=== PATIENT | male | born 1945 | race Caucasian/White ===

== ENCOUNTER 2017-04-18 10:26 | Inpatient (IN) | payer OTHER, MEDICARE ==
[2017-04-18] VITALS (7 sets, daily range): BP systolic 112–140; BP diastolic 74–94; PULSE 76–83; RESP 16–18; TEMP 97.5–98.3; O2SAT 93–96
[~2017-04-18] VITALS: Ht 175.3 cm; Wt 58.7 kg
[2017-04-18] MEDS ORDERED: ASPI81TA11 PO (10:58)
[2017-04-18] MEDS ORDERED: PHEN100C PO (10:58)
[2017-04-18] MEDS ORDERED: ATEN25TA PO (10:58)
[2017-04-18] MEDS ORDERED: SIMV40TA PO (10:58)
[2017-04-18] MEDS ORDERED: HYDR25TA5 PO (10:58)
[2017-04-18] MEDS ORDERED: ONDANSETRON HCL 4 MG/2 ML VIAL IV PUSH ONE (11:00)
[2017-04-18] MEDS ORDERED: SODIUM CHLOR 0.9% 1000 ML INJ 1,000 ML IV SCH (11:00)
--- NOTE | 2017-04-18 11:01 | PD ---
HPI Chief Complaint: GI Complaint Time Seen by Provider: 10:41 Travel History International Travel<30 days: No Contact w/Intl Traveler<30days: No Traveled to known affect area: No History of Present Illness HPI 72-year-old male complaining of cough, nausea vomiting diarrhea. Patient states that the symptoms started several months ago. Patient states that the cough is intermittent dry cough. Patient states that he has dyspnea on exertion. Patient is an ex-smoker. Patient states that he smoked marijuana occasionally. Patient has history of lupus dermatitis. Patient denies any blood in mucus in the stool. Patient denies any fever chills or back pain. Patient denies any abdominal pain. Patient denies history of COPD. 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) Social History Tobacco Use: No Allergies-Medications (Allergen,Severity, Reaction): Coded Allergies: No Known Allergies (Unverified , 04/18/17) Reported Meds & Prescriptions Reported Meds & Active Scripts Active Reported Aspirin EC (Aspirin) 81 Mg Tabdr 81 Mg PO DAILY Simvastatin 40 Mg Tab 40 Mg PO HS Phenytoin Extended 100 Mg Cap 100 Mg PO TID Hydrochlorothiazide 25 Mg Tab 25 Mg PO DAILY Atenolol 25 Mg Tab 25 Mg PO DAILY Review of Systems General / Constitutional: No: Fever Eyes: No: Visual changes HENT: No: Headaches Cardiovascular: No: Chest Pain or Discomfort Respiratory: Positive: Cough, No: Shortness of Breath Gastrointestinal: Positive: Nausea, Vomiting, Diarrhea, No: Abdominal Pain Genitourinary: No: Dysuria Musculoskeletal: No: Pain Skin: No Rash Neurologic: No: Weakness Psychiatric: No: Depression Endocrine: No: Polydipsia Hematologic/Lymphatic: No: Easy Bruising Physical Exam Narrative GENERAL: Well-nourished, well-developed patient. SKIN: Focused skin assessment warm/dry. HEAD: Normocephalic. EYES: No scleral icterus. No injection or drainage. NECK: Supple, trachea midline. No JVD or lymphadenopathy. CARDIOVASCULAR: Regular rate and rhythm without murmurs, gallops, or rubs. RESPIRATORY: Breath sounds equal bilaterally. No accessory muscle use. Mild expiratory wheezes bilaterally. Few rhonchi at the bases. GASTROINTESTINAL: Abdomen soft, non-tender, nondistended. MUSCULOSKELETAL: No cyanosis, or edema. BACK: Nontender without obvious deformity. No CVA tenderness. Neurologic exam normal. Data Data Last Documented VS Vital Signs Date Time Temp Pulse Resp B/P Pulse Ox O2 Delivery O2 Flow Rate FiO2 04/18/17 10:55 95 Room Air 04/18/17 10:36 97.5 81 16 140/94 Orders Complete Blood Count With Diff (04/18/17 10:49) Comprehensive Metabolic Panel (04/18/17 10:49) Prothrombin Time / Inr (Pt) (04/18/17 10:49) Act Partial Throm Time (Ptt) (04/18/17 10:49) Lipase (04/18/17 10:49) Urinalysis - C+S If Indicated (04/18/17 10:49) Chest, Single Ap (04/18/17 10:49) Iv Access Insert/Monitor (04/18/17 10:49) Ecg Monitoring (04/18/17 10:49) Oximetry (04/18/17 10:49) Sodium Chlor 0.9% 1000 Ml Inj (Ns 1000 M (04/18/17 11:00) Ondansetron Inj (Zofran Inj) (04/18/17 11:00) Blood Culture (04/18/17 12:35) Ceftriaxone Inj (Rocephin Inj) (04/18/17 12:45) Azithromycin Inj (Zithromax Inj) (04/18/17 12:45) Ct Abd/Pel W/O Iv Contrast (04/18/17 12:38) Lactic Acid (04/18/17 12:41) Sodium Chlor 0.9% 1000 Ml Inj (Ns 1000 M (04/18/17 12:45) Admit Order (Ed Use Only) (04/18/17 12:49) Labs Laboratory Tests Test 04/18/17 04/18/17 04/18/17 11:05 12:10 12:40 White Blood Count 7.4 TH/MM3 Red Blood Count 4.24 MIL/MM3 Hemoglobin 13.0 GM/DL Hematocrit 37.5 % Mean Corpuscular Volume 88.3 FL Mean Corpuscular Hemoglobin 30.5 PG Mean Corpuscular Hemoglobin 34.6 % Concent Red Cell Distribution Width 13.9 % Platelet Count 188 TH/MM3 Mean Platelet Volume 7.4 FL Neutrophils (%) (Auto) 64.8 % Lymphocytes (%) (Auto) 14.7 % Monocytes (%) (Auto) 8.0 % Eosinophils (%) (Auto) 12.1 % Basophils (%) (Auto) 0.4 % Neutrophils # (Auto) 4.8 TH/MM3 Lymphocytes # (Auto) 1.1 TH/MM3 Monocytes # (Auto) 0.6 TH/MM3 Eosinophils # (Auto) 0.9 TH/MM3 Basophils # (Auto) 0.0 TH/MM3 CBC Comment DIFF FINAL Differential Comment Prothrombin Time 11.2 SEC Prothromb Time International 1.0 RATIO Ratio Activated Partial 28.0 SEC Thromboplast Time Sodium Level 144 MEQ/L Potassium Level 3.9 MEQ/L Chloride Level 108 MEQ/L Carbon Dioxide Level 26.5 MEQ/L Anion Gap 10 MEQ/L Blood Urea Nitrogen 32 MG/DL Creatinine 1.40 MG/DL Estimat Glomerular Filtration 50 ML/MIN Rate Random Glucose 110 MG/DL Calcium Level 9.4 MG/DL Total Bilirubin 0.3 MG/DL Aspartate Amino Transf 52 U/L (AST/SGOT) Alanine Aminotransferase 57 U/L (ALT/SGPT) Alkaline Phosphatase 141 U/L Total Protein 7.7 GM/DL Albumin 3.6 GM/DL Lipase 100 U/L Urine Collection Type CLEAN CATCH Urine Color YELLOW Urine Turbidity SLIGHT Urine pH 5.5 Urine Specific [place] 1.020 Urine Protein TRACE mg/dL Urine Glucose (UA) NEG mg/dL Urine Ketones TRACE mg/dL Urine Occult Blood TRACE Urine Nitrite NEG Urine Bilirubin NEG Urine Leukocyte Esterase NEG Urine Squamous Epithelial 0-5 /hpf Cells Urine Amorphous Sediment FEW Microscopic Urinalysis Comment CULT NOT INDICATED Urine Collection Time 1210 Lactic Acid Level 1.1 mmol/L [facility] Medical Decision Making Medical Screen Exam Complete: Yes Emergency Medical Condition: Yes Interpretation(s) 12:30 PM. CBC within normal limit. BUN 32. Creatinine 1.4. GFR 50. AST 52. Alkaline phosphatase 141. Last Impressions Chest X-Ray 04/18/17 1049 Signed Impressions: Service Date/Time: March 11:28 - CONCLUSION: 1. Findings concerning for right middle lobe airspace disease which may reflect pneumonia or aspiration in the appropriate clinical setting. Filiberto Rodriguez MD Differential Diagnosis Differential diagnosis including reactive airway disease, bronchitis, pneumonia , gastroenteritis, dehydration, electrolyte imbalance, colitis. Narrative Course 72-year-old male with recurrent nausea vomiting diarrhea and cough. Examination patient has mild expiratory wheezes. Patient is an ex-smoker. Albuterol with Atrovent unit dose treatment 1. Normal saline solution 1 L IV bolus. Normal saline solution 100 cc an hour. Rocephin 1 g IV. Zithromax 500 mg IV. Diagnosis Primary Impression: Pneumonia Qualified Code: J18.1 - Pneumonia of right middle lobe due to infectious organism Additional Impressions: Gastroenteritis Renal insufficiency Admitting Information Admitting Physician Requests: Admit Wade Dodd MD Apr 18, 2017 11:01
[2017-04-18 11:18] LABS: AUTOMATED NEUTROPHIL # 4.8 TH/MM3 (1.8-7.7); BASOPHIL % 0.4 % (0.0-2.0); EOSINOPHIL # 0.9 TH/MM3 (0-0.4); EOSINOPHIL % 12.1 % (0.0-4.0); HEMATOCRIT 37.5 % (39.0-51.0); LYMPH % 14.7 % (9.0-44.0); LYMPHOCYTE # 1.1 TH/MM3 (1.0-4.8); MEAN CELL VOLUME 88.3 FL (80.0-100.0); MEAN CORPUSCULAR HEMOGLOBIN 30.5 PG (27.0-34.0); MEAN CORPUSCULAR HGB CONC 34.6 % (32.0-36.0); NEUT % 64.8 % (16.0-70.0); PLATELET COUNT 188 TH/MM3 (150-450); RED BLOOD COUNT 4.24 MIL/MM3 (4.50-5.90); RED CELL DISTRIBUTION WIDTH 13.9 % (11.6-17.2); WHITE BLOOD COUNT 7.4 TH/MM3 (4.0-11.0)
[2017-04-18 11:22] LABS: CHLORIDE 108 MEQ/L (98-107); HEMO FLAGS DIFF FINAL; POTASSIUM 3.9 MEQ/L (3.5-5.1); SODIUM (NA) 144 MEQ/L (136-145)
[2017-04-18 11:26] LABS: ANION GAP 10 MEQ/L (5-15); BICARBONATE 26.5 MEQ/L (21.0-32.0); BLOOD UREA NITROGEN 32 MG/DL (7-18)
[2017-04-18 11:29] LABS: ALT (GPT) 57 U/L (12-78); AST (GOT) 52 U/L (15-37); GLOMERULAR FILTRATION RATE 50 ML/MIN (>89); PROTHROMBIN TIME - PATIENT 11.2 SEC (9.8-11.6)
[2017-04-18 11:30] LABS: TOTAL BILIRUBIN ADULT 0.3 MG/DL (0.2-1.0)
[2017-04-18 11:32] LABS: ALKALINE PHOSPHATASE 141 U/L (45-117)
--- NOTE | 2017-04-18 11:56 | RADRPT ---
EXAM DATE/TIME: 04/18/2017 11:28 [facility] COMPARISON: No previous studies available for comparison. INDICATIONS : Patient has had vomiting for three to four months. He is also short of breath. MEDICAL HISTORY : Hypertension. SURGICAL HISTORY : None. ENCOUNTER: Initial ACUITY: 3 months PAIN SCORE: 5/10 LOCATION: Bilateral Abdomen. FINDINGS: Opacity in the medial right lower lung zone concerning for airspace consolidation in the right middle lobe. No significant pleural effusion. Cardiomediastinal contours are within normal limits. Bony tho rax is intact. CONCLUSION: 1. Findings concerning for right middle lobe airspace disease which may reflect pneumonia or aspirati on in the appropriate clinical setting. Filiberto Rodriguez MD on April 18, 2017 at 11:50 Board Certified Radiologist. This report was verified electronically.
[2017-04-18 12:29] LABS: BLOOD, URINE TRACE (NEG); GLUCOSE,URINE NEG (NEG); KETONE, URINE TRACE mg/dL (NEG); NITRITE,URINE NEG (NEG); PH, URINE 5.5 (5.0-8.5)
[2017-04-18 12:39] LABS: COMMENT (UR) CULT NOT INDICATED; COMMENT2 (UR) MUCOUS PRESENT; CULTURE IF INDICATED CULT NOT INDICATED; METHOD OF COLLECTION CLEAN CATCH; SQUAMOUS EPITHELIAL CELL URINE 0-5 /hpf (0-5); URINE COLOR YELLOW (YELLW/STRAW)
[2017-04-18] MEDS ORDERED: AZITHROMYCIN INJ 500 MG in SODIUM CHLOR 0.9% 250 ML INJ 250 ML IV ONE (12:45)
[2017-04-18] MEDS ORDERED: cefTRIAXone INJ 1,000 MG in SODIUM CHLORIDE 0.9% INJ 100 ML IV ONE (12:45)
[2017-04-18] MEDS ORDERED: SODIUM CHLOR 0.9% 1000 ML INJ 1,000 ML IV ONE (12:45)
--- NOTE | 2017-04-18 13:20 | RADRPT ---
EXAM DATE/TIME: 04/18/2017 12:51 [facility] COMPARISON: No previous studies available for comparison. INDICATIONS : Nausea, vomiting and diarrhea x 2 months. Weakness. Renal failure. ORAL CONTRAST: No oral contrast ingested. RADIATION DOSE: 4.58 CTDIvol (mGy) MEDICAL HISTORY : Aneurysm, abdominal. Aneurysm, intracranial. Hypertension. SURGICAL HISTORY : Brain aneurysm clips. ENCOUNTER: Initial ACUITY: 2 months PAIN SCALE: 0/10 LOCATION: Abdomen. TECHNIQUE: Volumetric scanning of the abdomen and pelvis was performed. Using automated exposure control and ad justment of the mA and/or kV according to patient size, radiation dose was kept as low as reasonably achievable to obtain optimal diagnostic quality images. FINDINGS: LOWER LUNGS: There is atelectasis or scar in the inferior right middle lobe and inferior left upper lobe. Emphysem atous changes are present at the lung bases. LIVER: Homogeneous density without lesion. There is no dilation of the biliary tree. No calcified gallston es. SPLEEN: Normal size without lesion. PANCREAS: Within normal limits. KIDNEYS: Normal in size and shape. There is no mass, stone, or hydronephrosis. There are 4 low-density lesion s in the right kidney measuring up to 3.8 cm. Density measurements are consistent with simple cysts. There is a single low-density lesion in the left mid kidney measuring 8 mm with density measurements consistent with a cyst. ADRENAL GLANDS: Within normal limits. VASCULAR: There is severe atherosclerotic disease with fusiform infrarenal normal aortic aneurysm measuring up to 4.7 x 4.6 cm. It tapers at the bifurcation. BOWEL/MESENTERY: The stomach, small bowel, and colon demonstrate no acute abnormality. There is no free intraperitone al air or fluid. There is sigmoid diverticulosis. ABDOMINAL WALL: Within normal limits. RETROPERITONEUM: There is no lymphadenopathy. BLADDER: No wall thickening or mass. REPRODUCTIVE: Within normal limits. INGUINAL: There is no lymphadenopathy or hernia. MUSCULOSKELETAL: There are degenerative changes of the lumbar spine. CONCLUSION: 1. No abnormality is identified to explain the clinical symptoms. No acute finding is identified on t his noncontrast examination. 2. Severe atherosclerotic disease with fusiform infrarenal abdominal aortic aneurysm measuring up to 4.7 cm. 3. Nonacute findings include bilateral renal cysts, sigmoid diverticulosis, and emphysematous changes along with suspected parenchymal scar at the lung bases. Butch Jacob MD on April 18, 2017 at 13:10 Board Certified Radiologist. This report was verified electronically.
--- NOTE | 2017-04-18 16:24 | HHI.HP ---
HPI Service [facility] Primary Care Physician [facility] Admission Diagnosis pneumonia. Renal insufficiency. Gastroenteritis. Diagnoses: Chief Complaint: Shortness of breath Travel History International Travel<30 Days: No Contact w/Intl Traveler <30 Da: No Traveled to Known Affected Are: No History of Present Illness This is a 72-year-old male with past medical history significant for brain and AAA who presents to [facility] [place] complaining of shortness of breath, which started approximately a week ago and has gotten much worse the past 2-3 days. The patient states that shortness of breath is worse on exertion, denies cough, denies chest pain. The patient states that he has had diarrhea, nausea and vomiting the past 2-3 weeks, last episode of vomiting was approximately 2 weeks ago. The patient denies taking antibiotics recently. The patient denies any exacerbating or relieving factors for the diarrhea. The patient denies chest pain, fevers, chills. Review of Systems As per history of present illness, other systems reviewed by me and negative Past Family Social History Past Medical History Brain aneurysm 2 status post surgical repair. Abdominal aortic aneurysm being monitored Seizures Hypertension Hyperlipidemia Past Surgical History Abdominal hernia repair Brain aneurysm repair 2 Reported Medications Aspirin EC (Aspirin) 81 Mg Tabdr 81 Mg PO DAILY Simvastatin 40 Mg Tab 40 Mg PO HS Phenytoin Extended 100 Mg Cap 100 Mg PO TID Hydrochlorothiazide 25 Mg Tab 25 Mg PO DAILY Atenolol 25 Mg Tab 25 Mg PO DAILY Allergies: Coded Allergies: No Known Allergies (Unverified , 04/18/17) Active Ordered Medications Current Medications Medications (Trade) Dose Ordered Sig/Mk Route Start Time Stop Time Status Last Admin (NS 1000 ml Inj) 1,000 ml @ 100 mls/hr Q10H IV 04/18/17 11:00 04/18/17 11:30 (SoluMEDROL INJ) 125 mg ONCE ONCE IV PUSH 04/18/17 16:30 04/18/17 16:31 UNV Methylprednisolone Sodium Succinate 40 mg 40 mg Q6HR IV PUSH 04/18/17 18:00 UNV Ceftriaxone Sodium 2000 mg/ Sodium Chloride 100 ml @ 200 mls/hr Q24H IV 04/19/17 13:00 Azithromycin 500 mg/Sodium Chloride 250 ml @ 250 mls/hr Q24H IV 04/19/17 16:00 (Flagyl 500 Mg Inj) 100 ml @ 100 mls/hr Q8H IV 04/18/17 16:30 UNV Family History Positive for family history of dementia. Social History The patient denies drinking alcohol. The patient is a former cigarette smoker but he states he quit approximately 30 years ago. Patient states he smokes marijuana. Physical Exam Vital Signs Vital Signs Date Time Temp Pulse Resp B/P Pulse Ox O2 Delivery O2 Flow Rate FiO2 04/18/17 15:55 97.5 83 18 120/88 93 04/18/17 15:36 98.3 76 16 134/86 93 Room Air 04/18/17 14:07 94 Room Air 04/18/17 13:29 79 18 128/82 95 Room Air 04/18/17 10:55 95 Room Air 04/18/17 10:36 97.5 81 16 140/94 93 Physical Exam GENERAL: This is a well-nourished, well-developed patient, in no apparent distress. SKIN: No rashes, ecchymoses or lesions. Cool and dry. HEAD: Atraumatic. Normocephalic. No temporal or scalp tenderness. EYES: Pupils equal round and reactive. Extraocular motions intact. No scleral icterus. No injection or drainage. ENT: Nose without bleeding, purulent drainage or septal hematoma. Throat without erythema, tonsillar hypertrophy or exudate. Uvula midline. Airway patent. NECK: Trachea midline. No JVD or lymphadenopathy. Supple, nontender, no meningeal signs. CARDIOVASCULAR: Regular rate and rhythm without murmurs, gallops, or rubs. RESPIRATORY: Diffuse bilateral end expiratory wheezing. Some coarse rhonchi on the right lower lung field. GASTROINTESTINAL: Abdomen soft, non-tender, nondistended. No hepato-splenomegaly , or palpable masses. No guarding. MUSCULOSKELETAL: Extremities without clubbing, cyanosis, or edema. No joint tenderness, effusion, or edema noted. No calf tenderness. Negative Homans sign bilaterally. NEUROLOGICAL: Awake and alert. Cranial nerves II through XII intact. Motor and sensory grossly within normal limits. Five out of 5 muscle strength in all muscle groups. Normal speech. Laboratory Laboratory Tests Test 04/18/17 04/18/17 04/18/17 11:05 12:10 12:40 White Blood Count 7.4 Red Blood Count 4.24 Hemoglobin 13.0 Hematocrit 37.5 Mean Corpuscular Volume 88.3 Mean Corpuscular Hemoglobin 30.5 Mean Corpuscular Hemoglobin 34.6 Concent Red Cell Distribution Width 13.9 Platelet Count 188 Mean Platelet Volume 7.4 Neutrophils (%) (Auto) 64.8 Lymphocytes (%) (Auto) 14.7 Monocytes (%) (Auto) 8.0 Eosinophils (%) (Auto) 12.1 Basophils (%) (Auto) 0.4 Neutrophils # (Auto) 4.8 Lymphocytes # (Auto) 1.1 Monocytes # (Auto) 0.6 Eosinophils # (Auto) 0.9 Basophils # (Auto) 0.0 CBC Comment DIFF FINAL Differential Comment Prothrombin Time 11.2 Prothromb Time International 1.0 Ratio Activated Partial 28.0 Thromboplast Time Sodium Level 144 Potassium Level 3.9 Chloride Level 108 Carbon Dioxide Level 26.5 Anion Gap 10 Blood Urea Nitrogen 32 Creatinine 1.40 Estimat Glomerular Filtration 50 Rate Random Glucose 110 Calcium Level 9.4 Total Bilirubin 0.3 Aspartate Amino Transf 52 (AST/SGOT) Alanine Aminotransferase 57 (ALT/SGPT) Alkaline Phosphatase 141 Total Protein 7.7 Albumin 3.6 Lipase 100 Urine Collection Type CLEAN CATCH Urine Color YELLOW Urine Turbidity SLIGHT Urine pH 5.5 Urine Specific [place] 1.020 Urine Protein TRACE Urine Glucose (UA) NEG Urine Ketones TRACE Urine Occult Blood TRACE Urine Nitrite NEG Urine Bilirubin NEG Urine Leukocyte Esterase NEG Urine Squamous Epithelial 0-5 Cells Urine Amorphous Sediment FEW Microscopic Urinalysis Comment CULT NOT INDICATED Urine Collection Time 1210 Lactic Acid Level 1.1 Date/Time Procedure Status Source Growth 04/18/17 12:45 Aerobic Blood Culture Received Blood Peripheral Pending 04/18/17 12:45 Anaerobic Blood Culture Received Blood Peripheral Pending Result Diagram: 04/18/17 1105 04/18/17 1105 Imaging Last Impressions Abdomen/Pelvis CT 04/18/17 1238 Signed Impressions: Service Date/Time: March 12:51 - CONCLUSION: 1. No abnormality is identified to explain the clinical symptoms. No acute finding is identified on this noncontrast examination. 2. Severe atherosclerotic disease with fusiform infrarenal abdominal aortic aneurysm measuring up to 4.7 cm. 3. Nonacute findings include bilateral renal cysts, sigmoid diverticulosis, and emphysematous changes along with suspected parenchymal scar at the lung bases. Butch Jacob MD Chest X-Ray 04/18/17 1049 Signed Impressions: Service Date/Time: , April 18, 2017 11:28 - CONCLUSION: 1. Findings concerning for right middle lobe airspace disease which may reflect pneumonia or aspiration in the appropriate clinical setting. Filiberto Rodriguez MD Reviewed by me Assessment and Plan Problem List: (1) RML pneumonia ICD Code: J18.1 Status: Acute Plan: This is a 72-year-old male with recent history of nausea vomiting and diarrhea who presents complaining of worsening shortness of breath. Found to have a primary low infiltrate on chest x-ray and diffuse expiratory wheezing on exam. Short of breath likely due to pneumonia and COPD exacerbation given the patient has history of former cigarette smoking and marijuana smoking daily. Primary low catheter concerning for aspiration pneumonia given recent episode of nausea and vomiting. Admit the patient to the medical floor I will place the patient on IV antibiotics. I will set the patient on IV Rocephin, IV azithromycin and IV Flagyl to cover for suspected aspiration pneumonia. Continue supplemental oxygen to keep oxygen saturation more than 92% Will check strep pneumococcal antigen and Legionella urinary antigen Check sputum culture Follow-up blood cultures obtained in the emergency department. (2) Gastroenteritis ICD Code: K52.9 Status: Acute Plan: Patient with nausea and vomiting and diarrhea. Will check stool for C. difficile and stool studies including Gram stain and culture. If diarrhea persists and test negative then will consider GI consultation. Patient states he had a colonoscopy at the [facility] 2 years ago and it was reportedly normal. I will start the patient Lactobacillus acidophilus. (3) ROSEANNA (acute kidney injury) ICD Code: N17.9 Status: Acute Plan: Creatinine elevated at 1.4, I do not count with old records to compare previous creatinine. Possibly prerenal azotemia secondary to dehydration from nausea vomiting and diarrhea. We'll place on IV normal saline and continue to monitor BUN/creatinine, strict I 's and O's, avoid nephrotoxins. (4) COPD exacerbation ICD Code: J44.1 Status: Acute Plan: Diffuse bilateral expiratory wheezing and history of chronic smoking We'll place the patient IV steroids, continue supplemental oxygen to keep oxygen saturation more than 92% Continue IV antibiotics as stated above I will place the patient on DuoNeb's every 6 hours while awake and every 2 hours as needed for shortness of breath/wheezing. (5) AAA (abdominal aortic aneurysm) ICD Code: I71.4 Status: Acute Plan: Patient denies abdominal pain. CT abdomen and pelvis showed abdominal aortic aneurysm measuring up to 4.7 cm. There are also reported emphysematous changes along with suspected parenchymal scar at the lung bases. Patient states that his abdominal aortic aneurysm is being monitored as an outpatient at the [facility]. Assessment and Plan DVT prophylaxis: SCDs, will place on Lovenox subcutaneously. Code Status Full code Discussed Condition With ED physician, patient. Physician Certification 2 Midnight Certification Type: Admission for Inpatient Services Order for Inpatient Services The services are ordered in accordance with Medicare regulations or non- Medicare payer requirements, as applicable. In the case of services not specified as inpatient-only, they are appropriately provided as inpatient services in accordance with the 2-midnight benchmark. Estimated LOS (days): 2 days is the estimated time the patient will need to remain in the hospital, assuming treatment plan goals are met and no additional complications. Post-Hospital Plan: Not yet determined Problem Qualifiers (1) AAA (abdominal aortic aneurysm): Qualified Code: I71.4 - Abdominal aortic aneurysm (AAA) without rupture Rahul Hill MD Apr 18, 2017 16:24
[2017-04-18] MEDS ORDERED: methylPREDNISolone SOD SUCC 125 MG/2 ML VIAL IV PUSH ONE (17:00)
[2017-04-18] MEDS ORDERED: ONDANSETRON HCL 4 MG/2 ML VIAL IV PUSH PRN (17:30)
[2017-04-18] MEDS ORDERED: NS + KCL 20 MEQ INJ 1,000 ML IV SCH (17:30)
--- NOTE | 2017-04-18 17:30 | RADRPT ---
EXAM DATE/TIME: 04/18/2017 16:57 [facility] COMPARISON: No previous studies available for comparison. INDICATIONS : Short of breath. Abnormal chest x-ray. RADIATION DOSE: 6.36 CTDIvol (mGy) MEDICAL HISTORY : Seizures. Hypertension. SURGICAL HISTORY : None. ENCOUNTER: Initial ACUITY: 1 month PAIN SCALE: 0/10 LOCATION: chest TECHNIQUE: Volumetric scanning of the chest was performed. Using automated exposure control and adjustment of t he mA and/or kV according to patient size, radiation dose was kept as low as reasonably achievable to obtain optimal diagnostic quality images. DICOM format image data is available electronically for r eview and comparison. FINDINGS: There is subsegmental airspace disease in the lingula and right middle lobe characteristic small pneu svetlana infiltrates. There is also mild cylindrical bronchiectasis, predominantly at the lung bases with fairly extensive peribronchial thickening noted. There is severe centrilobular emphysema within the upper lobes. No pleural or pericardial effusion. No hilar, mediastinal or axillary adenopathy. Mild coronary calcifications. No acute findings in the upper abdomen. Small hiatal hernia. Multiple right renal cysts. CONCLUSION: 1. Subsegmental consolidation in the right middle lobe and lingula. Primary differential diagnosis is small pneumonia. 2. Mild cylindrical bronchiectasis with peribronchial thickening characteristic of underlying bronchi tis. Moderate to severe emphysema. Zachariah Castro MD on April 18, 2017 at 17:22 Board Certified Radiologist. This report was verified electronically.
[2017-04-18] MEDS: LACTOBACILLUS ACIDOPHILUS TAB PO SCH (18:09)
[2017-04-18] MEDS: metroNIDAZOLE 500 MG INJ 100 ML IV SCH (18:09)
[2017-04-18] MEDS ORDERED: PHENYTOIN SODIUM 100 MG CAP PO ONE (18:45)
--- NOTE | 2017-04-18 20:12 | MB ---
cc: CATIE SALINAS M.D. DATE OF CONSULTATION: 04/18/2017. REASON FOR CONSULTATION: Diarrhea. DATE OF : 1945. REFERRING PHYSICIAN: Dr. Garrison. HISTORY OF PRESENT ILLNESS: Mr. Lowery is a 72-year-old gentleman with history of diarrhea for the last three weeks. He reports having loose stools for this amount of time. He denies any nausea or vomiting at this point but he did have a few months ago. He denies any fever or chills, recent travel or sick contacts or use of antibiotics. He did have some blood in his stools too but he does have hemorrhoids. He did have a colonoscopy two years ago with at the [facility] which according to him was normal. He has never had an endoscopy. He reports having episodes of nausea and vomiting a few months ago which resolved recently. He also had weight loss of approximately 10 pounds in the last couple of months. He is not a very good historian. He did give me information. He does have an abdominal aortic aneurysm which currently is under observation by the [facility] PAST MEDICAL HISTORY: 1. Brain aneurysm x2 status post repair. 2. Abdominal aortic aneurysm being closely monitored. 3. Seizure disorder. 4. Hypertension. 5. Hyperlipidemia. PAST SURGICAL HISTORY: 1. Abdominal hernia repair. 2. Brain aneurysm. MEDICATIONS: 1. Aspirin. 2. Simvastatin. 3. Phenytoin. 4. Hydrochlorothiazide. 5. Atenolol. ALLERGIES: NO KNOWN ALLERGIES. MEDICATIONS IN THE HOSPITAL: In the hospital, he was started on: 1. Solu-Medrol. 2. Ceftriaxone. 3. Azithromycin. 4. Flagyl. FAMILY HISTORY: Dementia. SOCIAL HISTORY: No smoking. Former cigarette smoking. Denies any drug use. PHYSICAL EXAMINATION: GENERAL: On clinical exam, the patient is sitting comfortably in bed in no acute distress. VITAL SIGNS: His temperature is 97.5, pulse is 83, respirations 18, blood pressure 120/88. Pulse oximetry 935. HEAD, EYES, EARS, NOSE, THROAT: Pupils equal, round and reactive to light and accommodation. NECK: No jugular venous distention. No lymphadenopathy. CHEST: The lungs are clear to auscultation and palpation. CARDIOVASCULAR: S1-S2 no murmur. ABDOMEN: Abdomen soft and nontender. Bowel sounds are present. OFFICE EMPLOYEE: Awake, alert and oriented times three. No focal signs identified. He does have some temporal wasting. LABORATORY DATA: His BUN is 32, creatinine 1.4, glucose 110, alkaline phosphatase 141. PT/INR normal. His hemoglobin is 13, white count 7.4, platelets 188. IMAGING STUDIES: The patient had a CT abdomen and pelvis which is suggestive of severe atherosclerotic disease with an abdominal aortic aneurysm at 4.[address] chest was also done that showed consolidation in the right middle lobe and lingula, possible pneumonia and bronchiectasis. IMPRESSION: 1. Diarrhea, unclear etiology at this time. Stool studies are pending. 2. Weight loss, not significant, but still worrisome in view of his symptoms. 3. History of nausea and vomiting a few months ago, resolved at this time. RECOMMENDATIONS: 1. Await stool studies. 2. Supportive care. 3. Monitor hemoglobin and hematocrit closely. 4. If the diarrhea persists and stool studies are negative, may consider endoscopy and colonoscopy outpatient versus prior to discharge. I would like to thank Dr. Garrison for referring him to our office for consultation. Further recommendations will depend on the patient's clinical status and the above results. Catie Salinas MD BSB/J[place]ot[place] /7:53 PM /8:00 PM
[2017-04-18] MEDS: RESP: ALBUTEROL 2.5 MG/IPRATROPIUM 0.5 MG NEB (SCH) NEB (21:57)
[2017-04-18] MEDS: PRAVASTATIN SOD 80 MG TAB PO SCH (22:48)
[2017-04-18] MEDS: methylPREDNISolone SOD SUCC 40 MG/1 ML VIAL IV PUSH SCH (22:49)
[2017-04-19] VITALS (7 sets, daily range): BP systolic 99–124; BP diastolic 63–82; PULSE 73–86; RESP 18–24; TEMP 96.4–98.7; O2SAT 90–98
[2017-04-19 00:39] LABS: C. DIFF EPI 027 PRESUMPTIVE NEGATIVE (NEGATIVE); C. DIFF TOXIN PCR NEGATIVE (NEGATIVE)
[2017-04-19] MEDS: metroNIDAZOLE 500 MG INJ 100 ML IV SCH ×3 (01:47→17:54)
[2017-04-19] MEDS: RESP: ALBUTEROL 2.5 MG/IPRATROPIUM 0.5 MG NEB (SCH) NEB ×4 (03:31→21:14)
[2017-04-19] MEDS: methylPREDNISolone SOD SUCC 40 MG/1 ML VIAL IV PUSH SCH ×4 (05:00→22:25)
[2017-04-19] MEDS: ASPIRIN EC 81 MG TABEC PO SCH (09:31)
[2017-04-19] MEDS: PHENYTOIN SODIUM 100 MG CAP PO SCH ×3 (09:31→17:55)
[2017-04-19] MEDS: HYDROCHLOROTHIAZIDE 25 MG TAB PO SCH (09:31)
[2017-04-19] MEDS: ATENOLOL 25 MG TAB PO SCH (09:31)
[2017-04-19] MEDS: LACTOBACILLUS ACIDOPHILUS TAB PO SCH ×3 (09:31→17:54)
[2017-04-19 10:20] LABS: AUTOMATED NEUTROPHIL # 6.6 TH/MM3 (1.8-7.7); BASOPHIL % 0.2 % (0.0-2.0); EOSINOPHIL % 0.3 % (0.0-4.0); HEMATOCRIT 34.2 % (39.0-51.0); HEMO FLAGS DIFF FINAL; LYMPH % 8.9 % (9.0-44.0); LYMPHOCYTE # 0.7 TH/MM3 (1.0-4.8); MEAN CELL VOLUME 89.6 FL (80.0-100.0); MEAN CORPUSCULAR HEMOGLOBIN 29.8 PG (27.0-34.0); MEAN CORPUSCULAR HGB CONC 33.3 % (32.0-36.0); MONO % 4.1 % (0.0-8.0); NEUT % 86.5 % (16.0-70.0); PLATELET COUNT 175 TH/MM3 (150-450); RED BLOOD COUNT 3.81 MIL/MM3 (4.50-5.90); RED CELL DISTRIBUTION WIDTH 13.6 % (11.6-17.2); WHITE BLOOD COUNT 7.6 TH/MM3 (4.0-11.0)
[2017-04-19 10:29] LABS: CHLORIDE 107 MEQ/L (98-107); POTASSIUM 3.7 MEQ/L (3.5-5.1); SODIUM (NA) 144 MEQ/L (136-145)
[2017-04-19 10:41] LABS: ALKALINE PHOSPHATASE 117 U/L (45-117); ALT (GPT) 52 U/L (12-78); ANION GAP 9 MEQ/L (5-15); AST (GOT) 43 U/L (15-37); BICARBONATE 27.9 MEQ/L (21.0-32.0); BLOOD UREA NITROGEN 30 MG/DL (7-18); GLOMERULAR FILTRATION RATE 54 ML/MIN (>89); MAGNESIUM 1.8 MG/DL (1.5-2.5); TOTAL BILIRUBIN ADULT 0.2 MG/DL (0.2-1.0)
[2017-04-19] MEDS: cefTRIAXone INJ 2,000 MG in SODIUM CHLORIDE 0.9% INJ 100 ML IV SCH (12:10)
--- NOTE | 2017-04-19 13:29 | HHI.PR ---
Subjective Remarks Patient states had some blood overnight denies cp/sob stable vital signs 02 sats better 98% on 2 liters nasal canula Objective Vitals Vital Signs Date Time Temp Pulse Resp B/P Pulse Ox O2 Delivery O2 Flow Rate FiO2 04/19/17 12:00 97.4 76 20 100/69 93 04/19/17 09:41 93 Nasal Cannula 2.00 04/19/17 08:00 96.4 86 24 124/82 96 04/19/17 00:00 97.2 80 18 100/64 90 04/18/17 21:55 Nasal Cannula 2.00 04/18/17 20:55 94 Nasal Cannula 3.00 04/18/17 20:00 97.7 80 18 112/74 96 04/18/17 15:55 97.5 83 18 120/88 93 04/18/17 15:36 98.3 76 16 134/86 93 Room Air 04/18/17 14:07 94 Room Air I/O 04/18/17 04/18/17 04/18/17 04/19/17 04/19/17 04/19/17 07:00 15:00 23:00 07:00 15:00 23:00 Intake Total 240 ml Output Total 400 ml 550 ml Balance -400 ml -310 ml Intake Oral 240 ml Output Urine Total 400 ml 550 ml # Bowel Movements 0 0 Result Diagram: 04/19/17 0930 04/19/17 0930 Imaging Last Impressions Abdomen/Pelvis CT 04/18/17 1238 Signed Impressions: Service Date/Time: March 12:51 - CONCLUSION: 1. No abnormality is identified to explain the clinical symptoms. No acute finding is identified on this noncontrast examination. 2. Severe atherosclerotic disease with fusiform infrarenal abdominal aortic aneurysm measuring up to 4.7 cm. 3. Nonacute findings include bilateral renal cysts, sigmoid diverticulosis, and emphysematous changes along with suspected parenchymal scar at the lung bases. Butch Jacob MD Chest X-Ray 04/18/17 1049 Signed Impressions: Service Date/Time: March 11:28 - CONCLUSION: 1. Findings concerning for right middle lobe airspace disease which may reflect pneumonia or aspiration in the appropriate clinical setting. Filiberto Rodriguez MD Chest CT 04/18/17 0000 Signed Impressions: Service Date/Time: March 16:57 - CONCLUSION: 1. Subsegmental consolidation in the right middle lobe and lingula. Primary differential diagnosis is small pneumonia. 2. Mild cylindrical bronchiectasis with peribronchial thickening characteristic of underlying bronchitis. Moderate to severe emphysema. Zachariah Castro MD Objective Remarks GENERAL: This is a well-nourished, well-developed patient, in no apparent distress. SKIN: No rashes, ecchymoses or lesions. Cool and dry. HEAD: Atraumatic. Normocephalic. No temporal or scalp tenderness. EYES: Pupils equal round and reactive. Extraocular motions intact. No scleral icterus. No injection or drainage. ENT: Nose without bleeding, purulent drainage or septal hematoma. Throat without erythema, tonsillar hypertrophy or exudate. Uvula midline. Airway patent. NECK: Trachea midline. No JVD or lymphadenopathy. Supple, nontender, no meningeal signs. CARDIOVASCULAR: Regular rate and rhythm without murmurs, gallops, or rubs. RESPIRATORY: NO wheezing but decreased breath sounds. Some coarse rhonchi on the right lower lung field. GASTROINTESTINAL: Abdomen soft, non-tender, nondistended. No hepato-splenomegaly , or palpable masses. No guarding. MUSCULOSKELETAL: Extremities without clubbing, cyanosis, or edema. No joint tenderness, effusion, or edema noted. No calf tenderness. Negative Homans sign bilaterally. NEUROLOGICAL: Awake and alert. Cranial nerves II through XII intact. Motor and sensory grossly within normal limits. Five out of 5 muscle strength in all muscle groups. Normal speech. Medications and IVs Current Medications Medications (Trade) Dose Ordered Sig/Mk Route Start Time Stop Time Status Last Admin Methylprednisolone Sodium Succinate 40 mg 40 mg Q6H IV PUSH 04/18/17 23:00 04/19/17 17:55 Ceftriaxone Sodium 2000 mg/ Sodium Chloride 100 ml @ 200 mls/hr Q24H IV 04/19/17 13:00 04/19/17 12:10 Azithromycin 500 mg/Sodium Chloride 250 ml @ 250 mls/hr Q24H IV 04/19/17 16:00 04/19/17 17:54 (Flagyl 500 Mg Inj) 100 ml @ 100 mls/hr Q8H IV 04/18/17 17:00 04/19/17 17:54 (Lactinex) 1 tab TID PO 04/18/17 18:00 04/19/17 17:54 (Zofran Inj) 4 mg Q6H PRN IV PUSH 04/18/17 17:30 (Ecotrin Ec) 81 mg DAILY PO 04/19/17 09:00 04/19/17 09:31 (Tenormin) 25 mg DAILY PO 04/19/17 09:00 04/19/17 09:31 (Hydrodiuril) 25 mg DAILY PO 04/19/17 09:00 04/19/17 09:31 (Dilantin) 100 mg TID PO 04/19/17 09:00 04/19/17 17:55 (Pravachol) 80 mg HS PO 04/18/17 21:00 04/18/17 22:48 A/P Problem List: (1) RML pneumonia ICD Code: J18.1 Status: Acute Plan: This is a 72-year-old male with recent history of nausea vomiting and diarrhea who presents complaining of worsening shortness of breath. Found to have a primary low infiltrate on chest x-ray and diffuse expiratory wheezing on exam. Short of breath likely due to pneumonia and COPD exacerbation given the patient has history of former cigarette smoking and marijuana smoking daily. Primary low catheter concerning for aspiration pneumonia given recent episode of nausea and vomiting. Admitted to the medical floor Started on IV Rocephin, IV azithromycin and IV Flagyl to cover for suspected aspiration pneumonia, continue. Continue supplemental oxygen to keep oxygen saturation more than 92% Will check strep pneumococcal antigen and Legionella urinary antigen ----> negative Check sputum culture ---> pending. Blood cultures negative date (2) Gastroenteritis ICD Code: K52.9 Status: Acute Plan: Patient with nausea and vomiting and diarrhea. Will check stool for C. difficile and stool studies including Gram stain and culture. If diarrhea persists and test negative then will consider GI consultation. Patient states he had a colonoscopy at the [facility] 2 years ago and it was reportedly normal. I will start the patient Lactobacillus acidophilus. 04/19 Stool negative for enteric pathogens, No WBC's seen in stool. Other stool studies pending. Appreciate GI input. (3) ROSEANNA (acute kidney injury) ICD Code: N17.9 Status: Acute Plan: Creatinine elevated at 1.4, I do not count with old records to compare previous creatinine. Possibly prerenal azotemia secondary to dehydration from nausea vomiting and diarrhea. 04/19 Continue IV normal saline and continue to monitor BUN/creatinine, strict I' s and O's, avoid nephrotoxins. Creatinine trending down. C diff negative. (4) COPD exacerbation ICD Code: J44.1 Status: Acute Plan: Diffuse bilateral expiratory wheezing and history of chronic smoking 04/19 Continue IV steroids, continue supplemental o2 to keep o2 sat >92%, Continue IV antibiotics We'll place the patient IV steroids, continue supplemental oxygen to keep oxygen saturation more than 92% Continue DuoNeb's every 6 hours while awake and every 2 hours as needed for shortness of breath/wheezing. (5) AAA (abdominal aortic aneurysm) ICD Code: I71.4 Status: Acute Plan: Patient denies abdominal pain. CT abdomen and pelvis showed abdominal aortic aneurysm measuring up to 4.7 cm. There are also reported emphysematous changes along with suspected parenchymal scar at the lung bases. Patient states that his abdominal aortic aneurysm is being monitored as an outpatient at the [facility]. (6) GI bleed ICD Code: K92.2 Status: Acute Plan: Patient c/o some blood in stool but states it is due to hemorrhoids. Hemoglobin dropped from 13.0 to 11.4, continue to monitor H/H (7) Acute blood loss anemia ICD Code: D62 Status: Acute Plan: Due to reported Gi bleed, hemoglobin dropped from 13 to 11.4 GI following Continue to monitor H/H and transfuse as needed for hb < 9 if active bleeding or < than 7 if no bleeding. Assessment and Plan DVT prophylaxis: SCD's, no chemoprophylaxis due to GI bleed. Discharge Planning Continue to monitor in the medical floor. Problem Qualifiers (1) RML pneumonia: Qualified Code: J69.0 - Aspiration pneumonia of right middle lobe due to gastric secretions (2) AAA (abdominal aortic aneurysm): Qualified Code: I71.4 - Abdominal aortic aneurysm (AAA) without rupture Rahul Hill MD Apr 19, 2017 13:29
--- NOTE | 2017-04-19 17:46 | HHI.GIFU ---
GI Follow-up Note Consult Follow-up Subjective: Patient laying in bed comfortably,feeling better, tolerating diet well, diarrhea better .On oxygen Objective: PHYSICAL EXAMINATION: Vitals signs stable No fever Vital Signs Date Time Temp Pulse Resp B/P Pulse Ox O2 Delivery O2 Flow Rate FiO2 04/19/17 16:00 98.7 73 20 115/76 98 04/19/17 12:00 97.4 76 20 100/69 93 HEENT: Pupils round and reactive to light; normocephalic; atraumatic; no jaundice. Throat is clear. NECK: Neck is supple, no JVD, no lymphadenopathy. CHEST: Chest is clear to auscultation and percussion. CARDIAC: Regular rate and rhythm with no murmur gallop or rubs. ABDOMEN: Soft, nondistended, nontender; no hepatosplenomegaly; bowel sounds are present in all four quadrants. EXTREMITIES: No clubbing, cyanosis, or edema. SKIN: Normal; no rash; no jaundice. INVENTORY CONTROL COORDINATOR: No focal deficits; alert and oriented times three. Available Data (labs, X- Rays, Procedues) : Laboratory Tests Test 04/18/17 04/18/17 04/18/17 04/18/17 11:05 12:10 12:40 18:40 White Blood Count 7.4 TH/MM3 Red Blood Count 4.24 MIL/MM3 Hemoglobin 13.0 GM/DL Hematocrit 37.5 % Mean Corpuscular Volume 88.3 FL Mean Corpuscular Hemoglobin 30.5 PG Mean Corpuscular Hemoglobin 34.6 % Concent Red Cell Distribution Width 13.9 % Platelet Count 188 TH/MM3 Mean Platelet Volume 7.4 FL Neutrophils (%) (Auto) 64.8 % Lymphocytes (%) (Auto) 14.7 % Monocytes (%) (Auto) 8.0 % Eosinophils (%) (Auto) 12.1 % Basophils (%) (Auto) 0.4 % Neutrophils # (Auto) 4.8 TH/MM3 Lymphocytes # (Auto) 1.1 TH/MM3 Monocytes # (Auto) 0.6 TH/MM3 Eosinophils # (Auto) 0.9 TH/MM3 Basophils # (Auto) 0.0 TH/MM3 CBC Comment DIFF FINAL Differential Comment Prothrombin Time 11.2 SEC Prothromb Time International 1.0 RATIO Ratio Activated Partial 28.0 SEC Thromboplast Time Sodium Level 144 MEQ/L Potassium Level 3.9 MEQ/L Chloride Level 108 MEQ/L Carbon Dioxide Level 26.5 MEQ/L Anion Gap 10 MEQ/L Blood Urea Nitrogen 32 MG/DL Creatinine 1.40 MG/DL Estimat Glomerular Filtration 50 ML/MIN Rate Random Glucose 110 MG/DL Calcium Level 9.4 MG/DL Total Bilirubin 0.3 MG/DL Aspartate Amino Transf 52 U/L (AST/SGOT) Alanine Aminotransferase 57 U/L (ALT/SGPT) Alkaline Phosphatase 141 U/L Total Protein 7.7 GM/DL Albumin 3.6 GM/DL Lipase 100 U/L Urine Collection Type CLEAN CATCH Urine Color YELLOW Urine Turbidity SLIGHT Urine pH 5.5 Urine Specific Jay 1.020 Urine Protein TRACE mg/dL Urine Glucose (UA) NEG mg/dL Urine Ketones TRACE mg/dL Urine Occult Blood TRACE Urine Nitrite NEG Urine Bilirubin NEG Urine Leukocyte Esterase NEG Urine Squamous Epithelial 0-5 /hpf Cells Urine Amorphous Sediment FEW Microscopic Urinalysis Comment CULT NOT INDICATED Urine Collection Time 1210 Lactic Acid Level 1.1 mmol/L Stool C. difficile Toxin (PCR) NEGATIVE Stl C. difficile Toxin PRESUMPTIVE Epiderm 027 NEGATIVE Test 04/19/17 09:30 White Blood Count 7.6 TH/MM3 Red Blood Count 3.81 MIL/MM3 Hemoglobin 11.4 GM/DL Hematocrit 34.2 % Mean Corpuscular Volume 89.6 FL Mean Corpuscular Hemoglobin 29.8 PG Mean Corpuscular Hemoglobin 33.3 % Concent Red Cell Distribution Width 13.6 % Platelet Count 175 TH/MM3 Mean Platelet Volume 7.8 FL Neutrophils (%) (Auto) 86.5 % Lymphocytes (%) (Auto) 8.9 % Monocytes (%) (Auto) 4.1 % Eosinophils (%) (Auto) 0.3 % Basophils (%) (Auto) 0.2 % Neutrophils # (Auto) 6.6 TH/MM3 Lymphocytes # (Auto) 0.7 TH/MM3 Monocytes # (Auto) 0.3 TH/MM3 Eosinophils # (Auto) 0.0 TH/MM3 Basophils # (Auto) 0.0 TH/MM3 CBC Comment DIFF FINAL Differential Comment Sodium Level 144 MEQ/L Potassium Level 3.7 MEQ/L Chloride Level 107 MEQ/L Carbon Dioxide Level 27.9 MEQ/L Anion Gap 9 MEQ/L Blood Urea Nitrogen 30 MG/DL Creatinine 1.30 MG/DL Estimat Glomerular Filtration 54 ML/MIN Rate Random Glucose 132 MG/DL Calcium Level 8.6 MG/DL Phosphorus Level 2.4 MG/DL Magnesium Level 1.8 MG/DL Total Bilirubin 0.2 MG/DL Aspartate Amino Transf 43 U/L (AST/SGOT) Alanine Aminotransferase 52 U/L (ALT/SGPT) Alkaline Phosphatase 117 U/L Total Protein 6.8 GM/DL Albumin 3.2 GM/DL ASSESSMENT/PLAN: diarrhea-unclear etiology improved nausea, vomiting resolved pneumonia on antibiotics Recommendations: fu stool studies if stool negative and still symptomatic consider egd/colonoscopy It was a pleasure seeing Wilfredo Lowery. Thank you for this consult. Entered by: Catie Valdez MD Apr 19, 2017 17:46
[2017-04-19] MEDS: AZITHROMYCIN INJ 500 MG in SODIUM CHLOR 0.9% 250 ML INJ 250 ML IV SCH (17:54)
[2017-04-19 21:06] LABS: HEMATOCRIT 32.5 % (39.0-51.0); MEAN CELL VOLUME 89.6 FL (80.0-100.0); MEAN CORPUSCULAR HEMOGLOBIN 30.5 PG (27.0-34.0); PLATELET COUNT 171 TH/MM3 (150-450); RED BLOOD COUNT 3.62 MIL/MM3 (4.50-5.90); REVIEW FLAG FINAL; WHITE BLOOD COUNT 8.8 TH/MM3 (4.0-11.0)
[2017-04-19] MEDS: PRAVASTATIN SOD 80 MG TAB PO SCH (22:24)
[2017-04-20] VITALS (9 sets, daily range): BP systolic 106–139; BP diastolic 64–82; PULSE 73–86; RESP 16–20; TEMP 97.5–98.1; O2SAT 92–97
[2017-04-20] MEDS: metroNIDAZOLE 500 MG INJ 100 ML IV SCH ×3 (00:53→17:15)
[2017-04-20] MEDS ORDERED: diphenhydrAMINE HCL 25 MG CAP PO ONE (01:30)
[2017-04-20] MEDS: methylPREDNISolone SOD SUCC 40 MG/1 ML VIAL IV PUSH SCH ×3 (05:24→20:12)
[2017-04-20 06:06] LABS: AUTOMATED NEUTROPHIL # 7.3 TH/MM3 (1.8-7.7); BASOPHIL % 0.3 % (0.0-2.0); EOSINOPHIL % 0.3 % (0.0-4.0); HEMATOCRIT 33.6 % (39.0-51.0); HEMO FLAGS DIFF FINAL; LYMPH % 12.1 % (9.0-44.0); LYMPHOCYTE # 1.1 TH/MM3 (1.0-4.8); MEAN CELL VOLUME 90.5 FL (80.0-100.0); MEAN CORPUSCULAR HEMOGLOBIN 29.4 PG (27.0-34.0); MEAN CORPUSCULAR HGB CONC 32.5 % (32.0-36.0); MONO % 5.7 % (0.0-8.0); NEUT % 81.6 % (16.0-70.0); PLATELET COUNT 178 TH/MM3 (150-450); RED BLOOD COUNT 3.71 MIL/MM3 (4.50-5.90); RED CELL DISTRIBUTION WIDTH 14.1 % (11.6-17.2); WHITE BLOOD COUNT 8.9 TH/MM3 (4.0-11.0)
[2017-04-20 06:32] LABS: ALKALINE PHOSPHATASE 104 U/L (45-117); ALT (GPT) 48 U/L (12-78); ANION GAP 7 MEQ/L (5-15); AST (GOT) 34 U/L (15-37); BICARBONATE 27.2 MEQ/L (21.0-32.0); BLOOD UREA NITROGEN 28 MG/DL (7-18); CHLORIDE 112 MEQ/L (98-107); GLOMERULAR FILTRATION RATE 54 ML/MIN (>89); MAGNESIUM 1.5 MG/DL (1.5-2.5); POTASSIUM 4.8 MEQ/L (3.5-5.1); SODIUM (NA) 146 MEQ/L (136-145); TOTAL BILIRUBIN ADULT 0.3 MG/DL (0.2-1.0)
[2017-04-20] MEDS: RESP: ALBUTEROL 2.5 MG/IPRATROPIUM 0.5 MG NEB (SCH) NEB ×3 (07:55→19:17)
[2017-04-20] MEDS: PHENYTOIN SODIUM 100 MG CAP PO SCH ×3 (09:14→17:15)
[2017-04-20] MEDS: ASPIRIN EC 81 MG TABEC PO SCH (09:14)
[2017-04-20] MEDS: LACTOBACILLUS ACIDOPHILUS TAB PO SCH ×3 (09:14→17:15)
[2017-04-20] MEDS: ATENOLOL 25 MG TAB PO SCH (09:15)
[2017-04-20] MEDS: HYDROCHLOROTHIAZIDE 25 MG TAB PO SCH (09:15)
--- NOTE | 2017-04-20 10:22 | HHI.GIFU ---
Subjective Remarks feels ok, no diarrhea, wants to go home, tolerated diet, no pain Objective Vitals I&O Vital Signs Date Time Temp Pulse Resp B/P Pulse Ox O2 Delivery O2 Flow Rate FiO2 04/20/17 08:00 98.1 86 20 127/82 97 04/20/17 07:59 92 Nasal Cannula 3.00 04/20/17 07:40 92 Nasal Cannula 3.00 04/20/17 04:47 04/20/17 01:30 92 Nasal Cannula 3.00 04/20/17 00:27 97.5 73 16 106/64 93 04/19/17 21:14 90 Nasal Cannula 2.00 04/19/17 20:25 97.6 73 18 99/63 93 04/19/17 16:00 98.7 73 20 115/76 98 04/19/17 12:00 97.4 76 20 100/69 93 I/O 04/19/17 04/19/17 04/19/17 04/20/17 04/20/17 04/20/17 07:00 15:00 23:00 07:00 15:00 23:00 Intake Total 240 ml 900 ml 550 ml Output Total 550 ml Balance -310 ml 900 ml 550 ml Intake Oral 240 ml 900 ml 550 ml Output Urine Total 550 ml # Voids 3 3 # Bowel Movements 0 2 0 Laboratory Laboratory Tests Test 04/19/17 04/20/17 21:00 05:47 White Blood Count 8.8 8.9 Red Blood Count 3.62 3.71 Hemoglobin 11.1 10.9 Hematocrit 32.5 33.6 Mean Corpuscular Volume 89.6 90.5 Mean Corpuscular Hemoglobin 30.5 29.4 Mean Corpuscular Hemoglobin 34.0 32.5 Concent Red Cell Distribution Width 14.0 14.1 Platelet Count 171 178 Mean Platelet Volume 7.0 7.4 Neutrophils (%) (Auto) 81.6 Lymphocytes (%) (Auto) 12.1 Monocytes (%) (Auto) 5.7 Eosinophils (%) (Auto) 0.3 Basophils (%) (Auto) 0.3 Neutrophils # (Auto) 7.3 Lymphocytes # (Auto) 1.1 Monocytes # (Auto) 0.5 Eosinophils # (Auto) 0.0 Basophils # (Auto) 0.0 CBC Comment DIFF FINAL Differential Comment Sodium Level 146 Potassium Level 4.8 Chloride Level 112 Carbon Dioxide Level 27.2 Anion Gap 7 Blood Urea Nitrogen 28 Creatinine 1.30 Estimat Glomerular Filtration 54 Rate Random Glucose 129 Calcium Level 8.7 Phosphorus Level 3.2 Magnesium Level 1.5 Total Bilirubin 0.3 Aspartate Amino Transf 34 (AST/SGOT) Alanine Aminotransferase 48 (ALT/SGPT) Alkaline Phosphatase 104 Total Protein 6.6 Albumin 3.1 Date/Time Procedure Status Source Growth 04/18/17 20:56 Legionella Antigen - Final Complete Urine Random Urine PRESUMPTIVE NEGATIVE FOR LEGIONELLA P... 04/18/17 20:56 Streptococcus pneumoniae Antigen (M - Final Complete Urine Random Urine PRESUMPTIVE NEGATIVE FOR STREPTOCOCCU... 04/18/17 18:40 Rotavirus Antigen - Final Complete Stool Stool NEGATIVE - ROTAVIRUS ANTIGEN IS ABSEN... 04/18/17 18:40 Cryptosporidium Exam Resulted Stool Stool Pending 04/18/17 18:40 Stool Pus (PRUDENCE) - Final Resulted Stool Stool NO WBC'S SEEN 04/18/17 18:40 Giardia Antigen (PRUDENCE) Resulted Stool Stool Pending 04/18/17 18:40 - Final Complete Stool Stool NO ENTERIC PATHOGENS DETECTED BY PCR... 04/18/17 18:40 Cancelled Stool Stool 04/18/17 12:45 Aerobic Blood Culture - Preliminary Resulted Blood Peripheral NO GROWTH IN 1 DAY 04/18/17 12:45 Anaerobic Blood Culture - Preliminary Resulted Blood Peripheral NO GROWTH IN 1 DAY Physical Exam HEENT: Pupils round and reactive to light; normocephalic; atraumatic; no jaundice. Throat is clear. NECK: Neck is supple, no JVD, no lymphadenopathy. CHEST: Chest is clear to auscultation and percussion. CARDIAC: Regular rate and rhythm with no murmur gallop or rubs. ABDOMEN: Soft, nondistended, nontender; no hepatosplenomegaly; bowel sounds are present in all four quadrants. EXTREMITIES: No clubbing, cyanosis, or edema. SKIN: Normal; no rash; no jaundice. 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 Assessment and Plan Plan doing better, diarrhea resolved, no pain tolerating diet, wants to go home anemia had colonoscopy last year at [facility], he can FU as out patient for further W/U Rigo Hale MD Apr 20, 2017 10:22
[2017-04-20] MEDS ORDERED: PRED20 PO ×2 (12:07→13:59)
[2017-04-20] MEDS ORDERED: AZIT500T2 PO (12:07)
[2017-04-20] MEDS ORDERED: AUGM875T3 PO ×2 (12:07→14:04)
--- NOTE | 2017-04-20 12:08 | HHI.DCPOC ---
Discharge Care Plan Diagnosis: (1) ROSEANNA (acute kidney injury) (2) RML pneumonia (3) Acute blood loss anemia (4) GI bleed (5) COPD exacerbation (6) AAA (abdominal aortic aneurysm) (7) Pneumonia (8) Gastroenteritis Goals to Promote Your Health * To prevent worsening of your condition and complications * To maintain your health at the optimal level Directions to Meet Your Goals Take your medications as prescribed Follow your dietary instruction Follow activity as directed Keep your appointments as scheduled Take your immunizations and boosters as scheduled If your symptoms worsen call your PCP, if no PCP go to Urgent Care Center or Emergency Room Smoking is Dangerous to Your Health. Avoid second hand smoke Call the 24-hour hour crisis hotline for domestic abuse at Rahul Hill MD Apr 20, 2017 12:08
[2017-04-20] MEDS: cefTRIAXone INJ 2,000 MG in SODIUM CHLORIDE 0.9% INJ 100 ML IV SCH (13:38)
[2017-04-20] MEDS ORDERED: LEVO500T8 PO (13:59)
[2017-04-20] MEDS ORDERED: OXYGENDME NAS.CANULA (14:02)
[2017-04-20] MEDS ORDERED: METR-1 PO (14:06)
[2017-04-20] MEDS: AZITHROMYCIN INJ 500 MG in SODIUM CHLOR 0.9% 250 ML INJ 250 ML IV SCH (15:36)
[2017-04-20] MEDS: PRAVASTATIN SOD 80 MG TAB PO SCH (20:12)
[2017-04-21 00:40] VITALS: BP 129/81; PULSE 79; RESP 18; TEMP 98.1; O2SAT 97
[2017-04-21] MEDS: metroNIDAZOLE 500 MG INJ 100 ML IV SCH ×2 (01:27→08:32)
[2017-04-21 05:10] VITALS: O2SAT 100
[2017-04-21] MEDS: methylPREDNISolone SOD SUCC 40 MG/1 ML VIAL IV PUSH SCH (05:10)
[2017-04-21 08:00] VITALS: BP 156/99; PULSE 87; RESP 19; TEMP 98; O2SAT 96
[2017-04-21] MEDS: RESP: ALBUTEROL 2.5 MG/IPRATROPIUM 0.5 MG NEB (SCH) NEB ×3 (08:15→20:00)
[2017-04-21 08:19] VITALS: O2SAT 93
[2017-04-21] MEDS: PHENYTOIN SODIUM 100 MG CAP PO SCH ×3 (08:31→22:10)
[2017-04-21] MEDS: ASPIRIN EC 81 MG TABEC PO SCH (08:31)
[2017-04-21] MEDS: LACTOBACILLUS ACIDOPHILUS TAB PO SCH ×3 (08:31→22:10)
[2017-04-21] MEDS: HYDROCHLOROTHIAZIDE 25 MG TAB PO SCH (08:31)
[2017-04-21] MEDS: ATENOLOL 25 MG TAB PO SCH (08:31)
--- NOTE | 2017-04-21 10:32 | HHI.PR ---
Subjective Remarks patient seen on 04/20 at 11 am denies sob/cp denies cough denies diarrhea Objective Vitals Vital Signs Date Time Temp Pulse Resp B/P Pulse Ox O2 Delivery O2 Flow Rate FiO2 04/21/17 08:19 93 Nasal Cannula 2.00 04/21/17 08:00 98.0 87 19 156/99 96 04/21/17 05:10 100 04/21/17 00:40 98.1 79 18 129/81 97 04/20/17 20:43 98.1 75 18 118/70 94 04/20/17 19:17 94 Nasal Cannula 3.00 04/20/17 16:00 97.6 75 19 132/81 94 04/20/17 13:05 3.00 04/20/17 12:00 97.7 77 18 139/79 92 I/O 04/20/17 04/20/17 04/20/17 04/21/17 04/21/17 04/21/17 07:00 15:00 23:00 07:00 15:00 23:00 Intake Total 1405 ml 115 ml Output Total 450 ml 350 ml Balance 955 ml -235 ml Intake Oral 880 ml IV Total 525 ml 115 ml Output Urine Total 450 ml 350 ml # Voids 3 1 # Bowel Movements 0 1 Result Diagram: 04/20/17 0547 04/20/17 0547 Imaging Last Impressions Abdomen/Pelvis CT 04/18/17 1238 Signed Impressions: Service Date/Time: March 12:51 - CONCLUSION: 1. No abnormality is identified to explain the clinical symptoms. No acute finding is identified on this noncontrast examination. 2. Severe atherosclerotic disease with fusiform infrarenal abdominal aortic aneurysm measuring up to 4.7 cm. 3. Nonacute findings include bilateral renal cysts, sigmoid diverticulosis, and emphysematous changes along with suspected parenchymal scar at the lung bases. Butch Jacob MD Chest X-Ray 04/18/17 1049 Signed Impressions: Service Date/Time: March 11:28 - CONCLUSION: 1. Findings concerning for right middle lobe airspace disease which may reflect pneumonia or aspiration in the appropriate clinical setting. Filiberto Rodriguez MD Chest CT 04/18/17 0000 Signed Impressions: Service Date/Time: March 16:57 - CONCLUSION: 1. Subsegmental consolidation in the right middle lobe and lingula. Primary differential diagnosis is small pneumonia. 2. Mild cylindrical bronchiectasis with peribronchial thickening characteristic of underlying bronchitis. Moderate to severe emphysema. Zachariah Castro MD Objective Remarks GENERAL: This is a well-nourished, well-developed patient, in no apparent distress. SKIN: No rashes, ecchymoses or lesions. Cool and dry. HEAD: Atraumatic. Normocephalic. No temporal or scalp tenderness. EYES: Pupils equal round and reactive. Extraocular motions intact. No scleral icterus. No injection or drainage. ENT: Nose without bleeding, purulent drainage or septal hematoma. Throat without erythema, tonsillar hypertrophy or exudate. Uvula midline. Airway patent. NECK: Trachea midline. No JVD or lymphadenopathy. Supple, nontender, no meningeal signs. CARDIOVASCULAR: Regular rate and rhythm without murmurs, gallops, or rubs. RESPIRATORY: NO wheezing but decreased breath sounds. Some coarse rhonchi on the right lower lung field. GASTROINTESTINAL: Abdomen soft, non-tender, nondistended. No hepato-splenomegaly , or palpable masses. No guarding. MUSCULOSKELETAL: Extremities without clubbing, cyanosis, or edema. No joint tenderness, effusion, or edema noted. No calf tenderness. Negative Homans sign bilaterally. NEUROLOGICAL: Awake and alert. Cranial nerves II through XII intact. Motor and sensory grossly within normal limits. Five out of 5 muscle strength in all muscle groups. Normal speech. Medications and IVs Current Medications Medications (Trade) Dose Ordered Sig/Mk Route Start Time Stop Time Status Last Admin Ceftriaxone Sodium 2000 mg/ Sodium Chloride 100 ml @ 200 mls/hr Q24H IV 04/19/17 13:00 04/20/17 13:38 Azithromycin 500 mg/Sodium Chloride 250 ml @ 250 mls/hr Q24H IV 04/19/17 16:00 04/20/17 15:36 (Flagyl 500 Mg Inj) 100 ml @ 100 mls/hr Q8H IV 04/18/17 17:00 04/21/17 08:32 (Lactinex) 1 tab TID PO 04/18/17 18:00 04/21/17 08:31 (Zofran Inj) 4 mg Q6H PRN IV PUSH 04/18/17 17:30 (Ecotrin Ec) 81 mg DAILY PO 04/19/17 09:00 04/21/17 08:31 (Tenormin) 25 mg DAILY PO 04/19/17 09:00 04/21/17 08:31 (Hydrodiuril) 25 mg DAILY PO 04/19/17 09:00 04/21/17 08:31 (Dilantin) 100 mg TID PO 04/19/17 09:00 04/21/17 08:31 (Pravachol) 80 mg HS PO 04/18/17 21:00 04/20/17 20:12 (SoluMEDROL INJ) 40 mg Q8H IV PUSH 04/20/17 13:00 04/21/17 05:10 Urinary Catheter: No Vascular Central Line Catheter: No A/P Problem List: (1) RML pneumonia ICD Code: J18.1 Status: Acute Plan: This is a 72-year-old male with recent history of nausea vomiting and diarrhea who presents complaining of worsening shortness of breath. Found to have a primary low infiltrate on chest x-ray and diffuse expiratory wheezing on exam. Short of breath likely due to pneumonia and COPD exacerbation given the patient has history of former cigarette smoking and marijuana smoking daily. Primary low catheter concerning for aspiration pneumonia given recent episode of nausea and vomiting. Admitted to the medical floor Started on IV Rocephin, IV azithromycin and IV Flagyl to cover for suspected aspiration pneumonia, continue. Continue supplemental oxygen to keep oxygen saturation more than 92% Will check strep pneumococcal antigen and Legionella urinary antigen ----> negative Check sputum culture ---> pending. Blood cultures negative date (2) Gastroenteritis ICD Code: K52.9 Status: Acute Plan: Patient with nausea and vomiting and diarrhea. Will check stool for C. difficile and stool studies including Gram stain and culture. If diarrhea persists and test negative then will consider GI consultation. Patient states he had a colonoscopy at the [place] 2 years ago and it was reportedly normal. I will start the patient Lactobacillus acidophilus. 04/19 Stool negative for enteric pathogens, No WBC's seen in stool. Other stool studies pending. Appreciate GI input. 04/20 diarrhea resolved (3) ROSEANNA (acute kidney injury) ICD Code: N17.9 Status: Acute Plan: Creatinine elevated at 1.4, I do not count with old records to compare previous creatinine. Possibly prerenal azotemia secondary to dehydration from nausea vomiting and diarrhea. 04/19 Continue IV normal saline and continue to monitor BUN/creatinine, strict I' s and O's, avoid nephrotoxins. Creatinine trending down. C diff negative. 04/20 Possible ckd stage 3, no previous labs to compare. Creatinine stable at 1.3 with good urine output. (4) COPD exacerbation ICD Code: J44.1 Status: Acute Plan: Diffuse bilateral expiratory wheezing and history of chronic smoking 04/19 Continue IV steroids, continue supplemental o2 to keep o2 sat >92%, Continue IV antibiotics We'll place the patient IV steroids, continue supplemental oxygen to keep oxygen saturation more than 92% Continue DuoNeb's every 6 hours while awake and every 2 hours as needed for shortness of breath/wheezing. 04/20 SOB much improved, will order a walk test to see if patient will need oxygen. (5) AAA (abdominal aortic aneurysm) ICD Code: I71.4 Status: Acute Plan: Patient denies abdominal pain. CT abdomen and pelvis showed abdominal aortic aneurysm measuring up to 4.7 cm. There are also reported emphysematous changes along with suspected parenchymal scar at the lung bases. Patient states that his abdominal aortic aneurysm is being monitored as an outpatient at the [place]. (6) GI bleed ICD Code: K92.2 Status: Acute Plan: Patient c/o some blood in stool but states it is due to hemorrhoids. Hemoglobin dropped from 13.0 to 11.4, continue to monitor H/H 04/20 Hemoglobin stable, no further bleeding. (7) Acute blood loss anemia ICD Code: D62 Status: Acute Plan: Due to reported Gi bleed, hemoglobin dropped from 13 to 11.4 GI following Continue to monitor H/H and transfuse as needed for hb < 9 if active bleeding or < than 7 if no bleeding. Assessment and Plan DVT prophylaxis: SCD's, no chemoprophylaxis due to GI bleed. Discharge Planning Continue to monitor in the medical floor. Pending walk test. Possible DC in am. Problem Qualifiers (1) RML pneumonia: Qualified Code: J69.0 - Aspiration pneumonia of right middle lobe due to gastric secretions (2) AAA (abdominal aortic aneurysm): Qualified Code: I71.4 - Abdominal aortic aneurysm (AAA) without rupture Rahul Hill MD Apr 21, 2017 10:32
[2017-04-21 12:00] VITALS: BP 140/95; PULSE 82; RESP 18; TEMP 97.7; O2SAT 95
--- NOTE | 2017-04-21 12:18 | HHI.PR ---
Subjective Remarks As per RN and medical student report, the patient staff the bathroom with paper towel stating that he had diarrhea and needed to keep himself. Nurse states that the patient has not had diarrhea Patient was delirious as per report. The patient to me he has had several bouts of diarrhea, denies abdominal pain Denies fevers or chills Vital signs stable Objective Vitals Vital Signs Date Time Temp Pulse Resp B/P Pulse Ox O2 Delivery O2 Flow Rate FiO2 04/21/17 08:19 93 Nasal Cannula 2.00 04/21/17 08:00 98.0 87 19 156/99 96 04/21/17 05:10 100 04/21/17 00:40 98.1 79 18 129/81 97 04/20/17 20:43 98.1 75 18 118/70 94 04/20/17 19:17 94 Nasal Cannula 3.00 04/20/17 16:00 97.6 75 19 132/81 94 04/20/17 13:05 3.00 I/O 04/20/17 04/20/17 04/20/17 04/21/17 04/21/17 04/21/17 07:00 15:00 23:00 07:00 15:00 23:00 Intake Total 1405 ml 115 ml Output Total 450 ml 350 ml Balance 955 ml -235 ml Intake Oral 880 ml IV Total 525 ml 115 ml Output Urine Total 450 ml 350 ml # Voids 3 1 # Bowel Movements 0 1 1 Result Diagram: 04/20/17 0547 04/20/17 0547 Imaging Last Impressions Abdomen/Pelvis CT 04/18/17 1238 Signed Impressions: Service Date/Time: March 12:51 - CONCLUSION: 1. No abnormality is identified to explain the clinical symptoms. No acute finding is identified on this noncontrast examination. 2. Severe atherosclerotic disease with fusiform infrarenal abdominal aortic aneurysm measuring up to 4.7 cm. 3. Nonacute findings include bilateral renal cysts, sigmoid diverticulosis, and emphysematous changes along with suspected parenchymal scar at the lung bases. Butch Jacob MD Chest X-Ray 04/18/17 1049 Signed Impressions: Service Date/Time: March 11:28 - CONCLUSION: 1. Findings concerning for right middle lobe airspace disease which may reflect pneumonia or aspiration in the appropriate clinical setting. Filiberto Rodriguez MD Chest CT 04/18/17 0000 Signed Impressions: Service Date/Time: March 16:57 - CONCLUSION: 1. Subsegmental consolidation in the right middle lobe and lingula. Primary differential diagnosis is small pneumonia. 2. Mild cylindrical bronchiectasis with peribronchial thickening characteristic of underlying bronchitis. Moderate to severe emphysema. Zachariah Castro MD Objective Remarks GENERAL: This is a well-nourished, well-developed patient, in no apparent distress. SKIN: No rashes, ecchymoses or lesions. Cool and dry. HEAD: Atraumatic. Normocephalic. No temporal or scalp tenderness. EYES: Pupils equal round and reactive. Extraocular motions intact. No scleral icterus. No injection or drainage. ENT: Nose without bleeding, purulent drainage or septal hematoma. Throat without erythema, tonsillar hypertrophy or exudate. Uvula midline. Airway patent. NECK: Trachea midline. No JVD or lymphadenopathy. Supple, nontender, no meningeal signs. CARDIOVASCULAR: Regular rate and rhythm without murmurs, gallops, or rubs. RESPIRATORY: NO wheezing but decreased breath sounds. Some coarse rhonchi on the right lower lung field. GASTROINTESTINAL: Abdomen soft, non-tender, nondistended. No hepato-splenomegaly , or palpable masses. No guarding. MUSCULOSKELETAL: Extremities without clubbing, cyanosis, or edema. No joint tenderness, effusion, or edema noted. No calf tenderness. Negative Homans sign bilaterally. NEUROLOGICAL: Awake and alert. Cranial nerves II through XII intact. Motor and sensory grossly within normal limits. Five out of 5 muscle strength in all muscle groups. Normal speech. Medications and IVs Current Medications Medications (Trade) Dose Ordered Sig/Mk Route Start Time Stop Time Status Last Admin Ceftriaxone Sodium 2000 mg/ Sodium Chloride 100 ml @ 200 mls/hr Q24H IV 04/19/17 13:00 04/20/17 13:38 (Zithromax Inj/ NS 250 ml Inj) 250 ml @ 250 mls/hr Q24H IV 04/19/17 16:00 04/20/17 15:36 (Lactinex) 1 tab TID PO 04/18/17 18:00 04/21/17 08:31 (Zofran Inj) 4 mg Q6H PRN IV PUSH 04/18/17 17:30 (Ecotrin Ec) 81 mg DAILY PO 04/19/17 09:00 04/21/17 08:31 (Tenormin) 25 mg DAILY PO 04/19/17 09:00 04/21/17 08:31 (Hydrodiuril) 25 mg DAILY PO 04/19/17 09:00 04/21/17 08:31 (Dilantin) 100 mg TID PO 04/19/17 09:00 04/21/17 08:31 (Pravachol) 80 mg HS PO 04/18/17 21:00 04/20/17 20:12 (Deltasone) 20 mg BID PO 04/21/17 21:00 Urinary Catheter: No Vascular Central Line Catheter: No A/P Problem List: (1) RML pneumonia ICD Code: J18.1 Status: Acute (2) Gastroenteritis ICD Code: K52.9 Status: Resolved (3) ROSEANNA (acute kidney injury) ICD Code: N17.9 Status: Resolved (4) COPD exacerbation ICD Code: J44.1 Status: Acute (5) AAA (abdominal aortic aneurysm) ICD Code: I71.4 Status: Chronic (6) GI bleed ICD Code: K92.2 Status: Resolved (7) Acute blood loss anemia ICD Code: D62 Status: Resolved (8) Acute delirium ICD Code: R41.0 Status: Acute Plan: Patient delirious overnight, better now. I suspect the acute delirium was caused by steroids. I will DC IV Solu Medrol and start the patient oral prednisone to be tapered. As you to monitor patient mental status. Assessment and Plan (1) RML pneumonia Plan: This is a 72-year-old male with recent history of nausea vomiting and diarrhea who presents complaining of worsening shortness of breath. Found to have a primary low infiltrate on chest x-ray and diffuse expiratory wheezing on exam. Short of breath likely due to pneumonia and COPD exacerbation given the patient has history of former cigarette smoking and marijuana smoking daily. Right middle lobe infiltrate concerning for aspiration pneumonia given recent episode of nausea and vomiting. Admitted to the medical floor Started on IV Rocephin, IV azithromycin and IV Flagyl to cover for suspected aspiration pneumonia, continue. Continue supplemental oxygen to keep oxygen saturation more than 92% Will check strep pneumococcal antigen and Legionella urinary antigen ----> negative Check sputum culture ---> pending. Blood cultures negative date (2) Gastroenteritis Plan: Patient with nausea and vomiting and diarrhea. Will check stool for C. difficile and stool studies including Gram stain and culture. If diarrhea persists and test negative then will consider GI consultation. Patient states he had a colonoscopy at the [place] 2 years ago and it was reportedly normal. I will start the patient Lactobacillus acidophilus. 04/19 Stool negative for enteric pathogens, No WBC's seen in stool. Other stool studies pending. Appreciate GI input. 04/20 diarrhea resolved. Patient has been cleared by GI to be discharge. 04/21 Had colonoscopy last year at [place], he can FU as out patient for further W/U (3) ROSEANNA (acute kidney injury) Plan: Creatinine elevated at 1.4, I do not count with old records to compare previous creatinine. Possibly prerenal azotemia secondary to dehydration from nausea vomiting and diarrhea. 04/19 Continue IV normal saline and continue to monitor BUN/creatinine, strict I' s and O's, avoid nephrotoxins. Creatinine trending down. C diff negative. 04/20 Possible ckd stage 3, no previous labs to compare. Creatinine stable at 1.3 with good urine output. (4) COPD exacerbation Plan: Diffuse bilateral expiratory wheezing and history of chronic smoking 04/19 Continue IV steroids, continue supplemental o2 to keep o2 sat >92%, Continue IV antibiotics We'll place the patient IV steroids, continue supplemental oxygen to keep oxygen saturation more than 92% Continue DuoNeb's every 6 hours while awake and every 2 hours as needed for shortness of breath/wheezing. 04/20 SOB much improved, will order a walk test to see if patient will need oxygen. 04/21 the patient failed to home walk test, will need oxygen to home with. group fitness manager to arrange. (5) AAA (abdominal aortic aneurysm) Plan: Patient denies abdominal pain. CT abdomen and pelvis showed abdominal aortic aneurysm measuring up to 4.7 cm. There are also reported emphysematous changes along with suspected parenchymal scar at the lung bases. Patient states that his abdominal aortic aneurysm is being monitored as an outpatient at the [place]. (6) GI bleed Plan: Patient c/o some blood in stool but states it is due to hemorrhoids. Hemoglobin dropped from 13.0 to 11.4, continue to monitor H/H 04/20 Hemoglobin stable, no further bleeding. Patient seen and evaluated by GI. Has had a colonoscopy in year ago at the [place]. Patient's GI bleed has resolved, tolerated diet. Follow-up as an outpatient (7) Acute blood loss anemia Plan: Due to reported Gi bleed, hemoglobin dropped from 13 to 11.4 GI following Continue to monitor H/H and transfuse as needed for hb < 9 if active bleeding or < than 7 if no bleeding. DVT prophylaxis: SCD's, no chemoprophylaxis due to GI bleed. Discharge Planning Continue to monitor in the medical floor. Patient with acute delirium. Possible DC in am if delirium improved. Problem Qualifiers (1) RML pneumonia: Qualified Code: J69.0 - Aspiration pneumonia of right middle lobe due to gastric secretions (2) AAA (abdominal aortic aneurysm): Qualified Code: I71.4 - Abdominal aortic aneurysm (AAA) without rupture Rahul Hill MD Apr 21, 2017 12:18
--- NOTE | 2017-04-21 14:02 | RADRPT ---
EXAM DATE/TIME: 04/21/2017 13:35 [facility] COMPARISON: No previous studies available for comparison. INDICATIONS : Altered mental status. RADIATION DOSE: 48.39 CTDIvol (mGy) MEDICAL HISTORY : Seizures. Aneurysm, abdominal. Aneurysm, intracranial.Hypertension. SURGICAL HISTORY : Intracranial aneurysm repair. Hernia repair. ENCOUNTER: Initial ACUITY: 1 day PAIN SCALE: 0/10 LOCATION: cranial TECHNIQUE: Multiple contiguous axial images were obtained of the head. Using automated exposure control and adj ustment of the mA and/or kV according to patient size, radiation dose was kept as low as reasonably a chievable to obtain optimal diagnostic quality images. DICOM format image data is available electro nically for review and comparison. FINDINGS: CEREBRUM: The patient is status post right craniotomy with aneurysm clips in the right suprasellar region. Ther e is encephalomalacia in the anterior right temporal lobe. 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 The ventricles are normal for age. No filiberto dence of midline shift, mass lesion, hemorrhage or acute infarction. No extra-axial fluid collection s are seen. POSTERIOR FOSSA: The cerebellum and brainstem are intact. The 4th ventricle is midline. The cerebellopontine angle i s unremarkable. EXTRACRANIAL: The visualized portion of the orbits is intact. There is mild bilateral maxillary and ethmoid sinus d isease. SKULL: The calvaria is intact. No evidence of skull fracture. CONCLUSION: 1. No acute abnormality is seen. 2. Aneurysm clips in the right suprasellar region. There is encephalomalacia at the right temporal lo be and postoperative changes from prior right temporal craniotomy. Butch Kumar MD on April 21, 2017 at 13:57 Board Certified Radiologist. This report was verified electronically.
[2017-04-21] MEDS: cefTRIAXone INJ 2,000 MG in SODIUM CHLORIDE 0.9% INJ 100 ML IV SCH (14:32)
[2017-04-21] MEDS: AZITHROMYCIN INJ 500 MG in SODIUM CHLOR 0.9% 250 ML INJ 250 ML IV SCH (14:33)
--- NOTE | 2017-04-21 15:53 | HHI.GIFU ---
Subjective Remarks Sitting up in chair. Confused. Denies abdominal pain. States he did have diarrhea today. Nurse did not see the diarrhea. Objective Vitals I&O Vital Signs Date Time Temp Pulse Resp B/P Pulse Ox O2 Delivery O2 Flow Rate FiO2 04/21/17 12:00 97.7 82 18 140/95 95 04/21/17 08:19 93 Nasal Cannula 2.00 04/21/17 08:00 98.0 87 19 156/99 96 04/21/17 05:10 100 04/21/17 00:40 98.1 79 18 129/81 97 04/20/17 20:43 98.1 75 18 118/70 94 04/20/17 19:17 94 Nasal Cannula 3.00 04/20/17 16:00 97.6 75 19 132/81 94 I/O 04/20/17 04/20/17 04/20/17 04/21/17 04/21/17 04/21/17 07:00 15:00 23:00 07:00 15:00 23:00 Intake Total 1405 ml 115 ml 420 ml Output Total 450 ml 350 ml Balance 955 ml -235 ml 420 ml Intake Oral 880 ml 420 ml IV Total 525 ml 115 ml Output Urine Total 450 ml 350 ml # Voids 3 1 # Bowel Movements 0 1 1 Laboratory Date/Time Procedure Status Source Growth 04/18/17 20:56 Legionella Antigen - Final Complete Urine Random Urine PRESUMPTIVE NEGATIVE FOR LEGIONELLA P... 04/18/17 20:56 Streptococcus pneumoniae Antigen (M - Final Complete Urine Random Urine PRESUMPTIVE NEGATIVE FOR STREPTOCOCCU... 04/18/17 18:40 Rotavirus Antigen - Final Complete Stool Stool NEGATIVE - ROTAVIRUS ANTIGEN IS ABSEN... 04/18/17 18:40 Cryptosporidium Exam Resulted Stool Stool Pending 04/18/17 18:40 Stool Pus ([facility]) - Final Resulted Stool Stool NO WBC'S SEEN 04/18/17 18:40 Giardia Antigen ([facility]) Resulted Stool Stool Pending 04/18/17 18:40 - Final Complete Stool Stool NO ENTERIC PATHOGENS DETECTED BY PCR... 04/18/17 18:40 Cancelled Stool Stool 04/18/17 12:45 Aerobic Blood Culture - Preliminary Resulted Blood Peripheral NO GROWTH IN 3 DAYS 04/18/17 12:45 Anaerobic Blood Culture - Preliminary Resulted Blood Peripheral NO GROWTH IN 3 DAYS Imaging Last Impressions Head CT 6/25/17 0000 Signed Impressions: Service Date/Time: Friday, April 21, 2017 13:35 - CONCLUSION: 1. No acute abnormality is seen. 2. Aneurysm clips in the right suprasellar region. There is encephalomalacia at the right temporal lobe and postoperative changes from prior right temporal craniotomy. Butch Kumar MD Abdomen/Pelvis CT 04/18/17 1238 Signed Impressions: Service Date/Time: March 12:51 - CONCLUSION: 1. No abnormality is identified to explain the clinical symptoms. No acute finding is identified on this noncontrast examination. 2. Severe atherosclerotic disease with fusiform infrarenal abdominal aortic aneurysm measuring up to 4.7 cm. 3. Nonacute findings include bilateral renal cysts, sigmoid diverticulosis, and emphysematous changes along with suspected parenchymal scar at the lung bases. Butch Jacob MD Chest X-Ray 04/18/17 1049 Signed Impressions: Service Date/Time: March 11:28 - CONCLUSION: 1. Findings concerning for right middle lobe airspace disease which may reflect pneumonia or aspiration in the appropriate clinical setting. Filiberto Rodriguez MD Chest CT 04/18/17 0000 Signed Impressions: Service Date/Time: March 16:57 - CONCLUSION: 1. Subsegmental consolidation in the right middle lobe and lingula. Primary differential diagnosis is small pneumonia. 2. Mild cylindrical bronchiectasis with peribronchial thickening characteristic of underlying bronchitis. Moderate to severe emphysema. Zachariah Castro MD Physical Exam HEENT: PERRLA; normocephalic; atraumatic; no jaundice. NECK: Neck is supple, no JVD, no lymphadenopathy. CHEST: CTA CARDIAC: RRR ABDOMEN: Soft, nondistended, nontender; no hepatosplenomegaly; bowel sounds x 4 quadrants EXTREMITIES: No clubbing, cyanosis, or edema. SKIN: Normal; no rash; no jaundice. DIETETICS DIRECTOR: Confused. Alert. Assessment and Plan Plan ASSESSMENT: Gastroenteritis, Patient reports he continues to have diarrhea, but staff have not seen any diarrhea. No abdominal pain. No nausea or vomiting. C diff negative, Giardia pending, Cryptosporidium pending, Stool-no WBC, no enteric pathogens detected, Rotavirus negative. Had colonoscopy at the [facility] 2 years ago, normal per patient. GI bleed, resolved. Patient c/o some blood in stool initially, likely secondary to hemorrhoids. HH stable 10.9/33.6 ROSEANNA, COPD, AAA, per attending PLAN: - Unclear if diarrhea has resolved - Monitor stool output - Monitor HH, transfuse as necessary - Await stool studies - Further recommendations to follow based on results of above Patient seen and examined by Dr. Hale and myself and this note is written on his behalf. (7) Acute blood loss anemia Plan: Due to reported Gi bleed, hemoglobin dropped from 13 to 11.4 GI following Continue to monitor H/H and transfuse as needed for hb < 9 if active bleeding or < than 7 if no bleeding. doing better, diarrhea resolved, no pain tolerating diet, wants to go home anemia had colonoscopy last year at [place], he can FU as out patient for further W/U Radha Weeks Apr 21, 2017 15:53
[2017-04-21 16:00] VITALS: BP 128/82; PULSE 79; RESP 19; TEMP 98; O2SAT 95
[2017-04-21] MEDS: predniSONE 20 MG TAB PO SCH (22:10)
[2017-04-21] MEDS: PRAVASTATIN SOD 80 MG TAB PO SCH (22:10)
[2017-04-22] VITALS (7 sets, daily range): BP systolic 103–122; BP diastolic 71–95; PULSE 79–104; RESP 18–20; TEMP 96.4–98.7; O2SAT 92–98
[2017-04-22] MEDS: RESP: ALBUTEROL 2.5 MG/IPRATROPIUM 0.5 MG NEB (SCH) NEB ×3 (08:00→19:22)
[2017-04-22] MEDS: ASPIRIN EC 81 MG TABEC PO SCH (08:38)
[2017-04-22] MEDS: PHENYTOIN SODIUM 100 MG CAP PO SCH ×3 (08:38→16:29)
[2017-04-22] MEDS: predniSONE 20 MG TAB PO SCH (08:38)
[2017-04-22] MEDS: ATENOLOL 25 MG TAB PO SCH (08:38)
[2017-04-22] MEDS: HYDROCHLOROTHIAZIDE 25 MG TAB PO SCH (08:38)
[2017-04-22] MEDS: LACTOBACILLUS ACIDOPHILUS TAB PO SCH ×3 (08:41→16:29)
[2017-04-22 11:02] LABS: AUTOMATED NEUTROPHIL # 9.7 TH/MM3 (1.8-7.7); BASOPHIL % 0.2 % (0.0-2.0); EOSINOPHIL % 0.4 % (0.0-4.0); HEMATOCRIT 36.9 % (39.0-51.0); HEMO FLAGS DIFF FINAL; LYMPH % 8.3 % (9.0-44.0); LYMPHOCYTE # 0.9 TH/MM3 (1.0-4.8); MEAN CORPUSCULAR HEMOGLOBIN 30.1 PG (27.0-34.0); MEAN CORPUSCULAR HGB CONC 33.5 % (32.0-36.0); MONO % 5.7 % (0.0-8.0); NEUT % 85.4 % (16.0-70.0); PLATELET COUNT 232 TH/MM3 (150-450); RED CELL DISTRIBUTION WIDTH 14.1 % (11.6-17.2); WHITE BLOOD COUNT 11.2 TH/MM3 (4.0-11.0)
[2017-04-22 11:16] LABS: ALKALINE PHOSPHATASE 110 U/L (45-117); ALT (GPT) 59 U/L (12-78); ANION GAP 11 MEQ/L (5-15); AST (GOT) 49 U/L (15-37); BICARBONATE 26.3 MEQ/L (21.0-32.0); BLOOD UREA NITROGEN 44 MG/DL (7-18); CHLORIDE 106 MEQ/L (98-107); GLOMERULAR FILTRATION RATE 35 ML/MIN (>89); POTASSIUM 3.7 MEQ/L (3.5-5.1); SODIUM (NA) 143 MEQ/L (136-145); TOTAL BILIRUBIN ADULT 0.4 MG/DL (0.2-1.0)
[2017-04-22] MEDS: cefTRIAXone INJ 2,000 MG in SODIUM CHLORIDE 0.9% INJ 100 ML IV SCH (12:12)
--- NOTE | 2017-04-22 12:14 | HHI.PR ---
Subjective Remarks Deferred entry - patient seen at 10 am Patient denies sob and chest pain son at bedside concerned about patient's on and off confusion As per RN the patient has being having on and off episodes of confusion and also has been trying to unscrew the bed with a knife. Patient is afebrile Other vital signs stable Creatinine elevated Objective Vitals Vital Signs Date Time Temp Pulse Resp B/P Pulse Ox O2 Delivery O2 Flow Rate FiO2 04/22/17 09:08 92 21 04/22/17 08:00 96.4 104 18 119/85 94 04/22/17 05:18 04/21/17 16:00 98.0 79 19 128/82 95 04/21/17 12:00 97.7 82 18 140/95 95 I/O 04/21/17 04/21/17 04/21/17 04/22/17 04/22/17 04/22/17 07:00 15:00 23:00 07:00 15:00 23:00 Intake Total 115 ml 660 ml Output Total 350 ml Balance -235 ml 660 ml Intake Oral 660 ml IV Total 115 ml Output Urine Total 350 ml # Voids 2 1 # Bowel Movements 1 0 Result Diagram: 04/22/17 1034 04/22/17 1034 Imaging Last Impressions Head CT 04/21/17 0000 Signed Impressions: Service Date/Time: Friday, April 21, 2017 13:35 - CONCLUSION: 1. No acute abnormality is seen. 2. Aneurysm clips in the right suprasellar region. There is encephalomalacia at the right temporal lobe and postoperative changes from prior right temporal craniotomy. Butch Kumar MD Abdomen/Pelvis CT 04/18/17 1238 Signed Impressions: Service Date/Time: March 12:51 - CONCLUSION: 1. No abnormality is identified to explain the clinical symptoms. No acute finding is identified on this noncontrast examination. 2. Severe atherosclerotic disease with fusiform infrarenal abdominal aortic aneurysm measuring up to 4.7 cm. 3. Nonacute findings include bilateral renal cysts, sigmoid diverticulosis, and emphysematous changes along with suspected parenchymal scar at the lung bases. Butch Jacob MD Chest X-Ray 04/18/17 1049 Signed Impressions: Service Date/Time: March 11:28 - CONCLUSION: 1. Findings concerning for right middle lobe airspace disease which may reflect pneumonia or aspiration in the appropriate clinical setting. Filiberto Rodriguez MD Chest CT 04/18/17 0000 Signed Impressions: Service Date/Time: , April 18, 2017 16:57 - CONCLUSION: 1. Subsegmental consolidation in the right middle lobe and lingula. Primary differential diagnosis is small pneumonia. 2. Mild cylindrical bronchiectasis with peribronchial thickening characteristic of underlying bronchitis. Moderate to severe emphysema. Zachariah Castro MD Objective Remarks GENERAL: This is a well-nourished, well-developed patient, in no apparent distress. SKIN: No rashes, ecchymoses or lesions. Cool and dry. HEAD: Atraumatic. Normocephalic. No temporal or scalp tenderness. EYES: Pupils equal round and reactive. Extraocular motions intact. No scleral icterus. No injection or drainage. ENT: Nose without bleeding, purulent drainage or septal hematoma. Throat without erythema, tonsillar hypertrophy or exudate. Uvula midline. Airway patent. NECK: Trachea midline. No JVD or lymphadenopathy. Supple, nontender, no meningeal signs. CARDIOVASCULAR: Regular rate and rhythm without murmurs, gallops, or rubs. RESPIRATORY: NO wheezing but decreased breath sounds. Some coarse rhonchi on the right lower lung field. GASTROINTESTINAL: Abdomen soft, non-tender, nondistended. No hepato-splenomegaly , or palpable masses. No guarding. MUSCULOSKELETAL: Extremities without clubbing, cyanosis, or edema. No joint tenderness, effusion, or edema noted. No calf tenderness. Negative Homans sign bilaterally. NEUROLOGICAL: Awake and alert. Cranial nerves II through XII intact. Motor and sensory grossly within normal limits. Five out of 5 muscle strength in all muscle groups. Normal speech. Procedures none Medications and IVs Current Medications Medications (Trade) Dose Ordered Sig/Mk Route Start Time Stop Time Status Last Admin Ceftriaxone Sodium 2000 mg/ Sodium Chloride 100 ml @ 200 mls/hr Q24H IV 04/19/17 13:00 04/21/17 14:32 (Zithromax Inj/ NS 250 ml Inj) 250 ml @ 250 mls/hr Q24H IV 04/19/17 16:00 04/21/17 14:33 (Lactinex) 1 tab TID PO 04/18/17 18:00 04/22/17 08:41 (Zofran Inj) 4 mg Q6H PRN IV PUSH 04/18/17 17:30 (Ecotrin Ec) 81 mg DAILY PO 04/19/17 09:00 04/22/17 08:38 (Tenormin) 25 mg DAILY PO 04/19/17 09:00 04/22/17 08:38 (Hydrodiuril) 25 mg DAILY PO 04/19/17 09:00 04/22/17 08:38 (Dilantin) 100 mg TID PO 04/19/17 09:00 04/22/17 08:38 (Pravachol) 80 mg HS PO 04/18/17 21:00 04/21/17 22:10 (Deltasone) 20 mg BID PO 04/21/17 21:00 04/22/17 08:38 Urinary Catheter: No Vascular Central Line Catheter: No A/P Problem List: (1) RML pneumonia ICD Code: J18.1 Status: Acute (2) Gastroenteritis ICD Code: K52.9 Status: Resolved (3) ROSEANNA (acute kidney injury) ICD Code: N17.9 Status: Resolved (4) COPD exacerbation ICD Code: J44.1 Status: Acute (5) AAA (abdominal aortic aneurysm) ICD Code: I71.4 Status: Chronic (6) GI bleed ICD Code: K92.2 Status: Resolved (7) Acute blood loss anemia ICD Code: D62 Status: Resolved (8) Acute delirium ICD Code: R41.0 Status: Acute Plan: Likely steroid induced. Patient seems still to be delirious. IV Solumedrol was discontinued on 04/21 and patient started on prednisone. 04/22 Patient still delirious. Will order sitter and DC prednisone. Assessment and Plan (1) RML pneumonia Plan: This is a 72-year-old male with recent history of nausea vomiting and diarrhea who presents complaining of worsening shortness of breath. Found to have a primary low infiltrate on chest x-ray and diffuse expiratory wheezing on exam. Short of breath likely due to pneumonia and COPD exacerbation given the patient has history of former cigarette smoking and marijuana smoking daily. Right middle lobe infiltrate concerning for aspiration pneumonia given recent episode of nausea and vomiting. Admitted to the medical floor Started on IV Rocephin, IV azithromycin and IV Flagyl to cover for suspected aspiration pneumonia, continue. Continue supplemental oxygen to keep oxygen saturation more than 92% Will check strep pneumococcal antigen and Legionella urinary antigen ----> negative Check sputum culture ---> pending. Blood cultures negative date (2) Gastroenteritis Plan: Patient with nausea and vomiting and diarrhea. Will check stool for C. difficile and stool studies including Gram stain and culture. If diarrhea persists and test negative then will consider GI consultation. Patient states he had a colonoscopy at the [facility] 2 years ago and it was reportedly normal. I will start the patient Lactobacillus acidophilus. 04/19 Stool negative for enteric pathogens, No WBC's seen in stool. Other stool studies pending. Appreciate GI input. 04/20 diarrhea resolved. Patient has been cleared by GI to be discharge. 04/21 Had colonoscopy last year at [facility], he can FU as out patient for further W/U (3) ROSEANNA (acute kidney injury) Plan: Creatinine elevated at 1.4, I do not count with old records to compare previous creatinine. Possibly prerenal azotemia secondary to dehydration from nausea vomiting and diarrhea. 04/19 Continue IV normal saline and continue to monitor BUN/creatinine, strict I' s and O's, avoid nephrotoxins. Creatinine trending down. C diff negative. 04/20 Possible ckd stage 3, no previous labs to compare. Creatinine stable at 1.3 with good urine output. 04/22 Worsening creatinine up to 1.9. Will start the patient on IV normal saline. Will check for urine eosinophils, check for kidney us. Continue to monitor BMP, avoid nephrotoxins. (4) COPD exacerbation Plan: Diffuse bilateral expiratory wheezing and history of chronic smoking 04/19 Continue IV steroids, continue supplemental o2 to keep o2 sat >92%, Continue IV antibiotics We'll place the patient IV steroids, continue supplemental oxygen to keep oxygen saturation more than 92% Continue DuoNeb's every 6 hours while awake and every 2 hours as needed for shortness of breath/wheezing. 04/20 SOB much improved, will order a walk test to see if patient will need oxygen. 04/21 the patient failed to home walk test, will need oxygen to home with. electronics engineering manager to arrange. 04/22 will repeat walk test to assess the continued need for oxygen at home. (5) AAA (abdominal aortic aneurysm) Plan: Patient denies abdominal pain. CT abdomen and pelvis showed abdominal aortic aneurysm measuring up to 4.7 cm. There are also reported emphysematous changes along with suspected parenchymal scar at the lung bases. Patient states that his abdominal aortic aneurysm is being monitored as an outpatient at the [facility]. (6) GI bleed Plan: Patient c/o some blood in stool but states it is due to hemorrhoids. Hemoglobin dropped from 13.0 to 11.4, continue to monitor H/H 04/20 Hemoglobin stable, no further bleeding. Patient seen and evaluated by GI. Has had a colonoscopy in year ago at the [facility]. Patient's GI bleed has resolved, tolerated diet. Follow-up as an outpatient (7) Acute blood loss anemia Plan: Due to reported Gi bleed, hemoglobin dropped from 13 to 11.4 GI following 04/22 hemoglobin stable Continue to monitor H/H and transfuse as needed for hb < 9 if active bleeding or < than 7 if no bleeding. DVT prophylaxis: SCD's, no chemoprophylaxis due to GI bleed. Discharge Planning Continue to monitor in the medical floor. Patient still delirious, worsening ROSEANNA. Problem Qualifiers (1) RML pneumonia: Qualified Code: J69.0 - Aspiration pneumonia of right middle lobe due to gastric secretions (2) AAA (abdominal aortic aneurysm): Qualified Code: I71.4 - Abdominal aortic aneurysm (AAA) without rupture Rahul Hill MD Apr 22, 2017 12:14
[2017-04-22] MEDS: SODIUM CHLOR 0.9% 1000 ML INJ 1,000 ML IV SCH (12:37)
[2017-04-22] MEDS: metroNIDAZOLE 500 MG INJ 100 ML IV SCH ×2 (12:37→22:00)
--- NOTE | 2017-04-22 13:50 | PD.PN.STU ---
Subjective Remarks S: Patient is a 72 year old male who presents for GI follow up. Patient states that the diarrhea resolved 2 days ago. He has SOB. Patient is confused. Nurse states that he has nausea which is being treated with Zofran. She said he has had bowel movements, but she was unable to see them because he flushed them. She doesn't know if any blood was in the stool. She said he hasn't had fever or chills in the last day. jeet was seen and examined by Dr Hale and Medical student Objective Vitals Vital Signs Date Time Temp Pulse Resp B/P Pulse Ox O2 Delivery O2 Flow Rate FiO2 04/22/17 12:00 97.5 79 18 122/95 94 04/22/17 09:08 92 21 04/22/17 08:00 96.4 104 18 119/85 94 04/22/17 05:18 04/21/17 16:00 98.0 79 19 128/82 95 I/O 04/21/17 04/21/17 04/21/17 04/22/17 04/22/17 04/22/17 07:00 15:00 23:00 07:00 15:00 23:00 Intake Total 115 ml 660 ml Output Total 350 ml Balance -235 ml 660 ml Intake Oral 660 ml IV Total 115 ml Output Urine Total 350 ml # Voids 2 1 # Bowel Movements 1 0 O: General: WDWN; not in acute distress HEENT: negative Neck: supple, (-) LAD Heart: RRR nl S1, S2 Lungs: wheezes heard bilaterally. Abdomen: soft, nontender, nondistended. normal bowel sounds, no HSM Ext: no edema or cyanosis Neuro: alert but confused; cranial nerves intact jeet was seen and examined by Dr Hale and Medical student Result Diagram: 04/22/17 1034 04/22/17 1034 Other Results Laboratory Tests Test 04/19/17 04/20/17 04/22/17 21:00 05:47 10:34 Red Blood Count 3.62 MIL/MM3 3.71 MIL/MM3 4.10 MIL/MM3 (4.50-5.90) (4.50-5.90) (4.50-5.90) Hemoglobin 11.1 GM/DL 10.9 GM/DL 12.3 GM/DL (13.0-17.0) (13.0-17.0) (13.0-17.0) Hematocrit 32.5 % 33.6 % 36.9 % (39.0-51.0) (39.0-51.0) (39.0-51.0) Neutrophils (%) (Auto) 81.6 % 85.4 % (16.0-70.0) (16.0-70.0) Sodium Level 146 MEQ/L (136-145) Chloride Level 112 MEQ/L (98-107) Blood Urea Nitrogen 28 MG/DL (7-18) 44 MG/DL (7-18) Estimat Glomerular Filtration 54 ML/MIN (>89) 35 ML/MIN (>89) Rate Random Glucose 129 MG/DL 112 MG/DL (74-106) (74-106) Albumin 3.1 GM/DL (3.4-5.0) White Blood Count 11.2 TH/MM3 (4.0-11.0) Lymphocytes (%) (Auto) 8.3 % (9.0-44.0) Neutrophils # (Auto) 9.7 TH/MM3 (1.8-7.7) Lymphocytes # (Auto) 0.9 TH/MM3 (1.0-4.8) Creatinine 1.90 MG/DL (0.60-1.30) Aspartate Amino Transf 49 U/L (15-37) (AST/SGOT) Imaging Last [address] 04/21/17 0000 Signed Impressions: Service Date/Time: Friday, April 21, 2017 13:35 - CONCLUSION: 1. No acute abnormality is seen. 2. Aneurysm clips in the right suprasellar region. There is encephalomalacia at the right temporal lobe and postoperative changes from prior right temporal craniotomy. Butch Kumar MD Medications and IVs Current Medications Medications (Trade) Dose Ordered Sig/Mk Route Start Time Stop Time Status Last Admin Ceftriaxone Sodium 2000 mg/ Sodium Chloride 100 ml @ 200 mls/hr Q24H IV 04/19/17 13:00 04/22/17 12:12 (Zithromax Inj/ NS 250 ml Inj) 250 ml @ 250 mls/hr Q24H IV 04/19/17 16:00 04/21/17 14:33 (Lactinex) 1 tab TID PO 04/18/17 18:00 04/22/17 12:11 (Zofran Inj) 4 mg Q6H PRN IV PUSH 04/18/17 17:30 04/22/17 12:39 (Ecotrin Ec) 81 mg DAILY PO 04/19/17 09:00 04/22/17 08:38 (Tenormin) 25 mg DAILY PO 04/19/17 09:00 04/22/17 08:38 (Hydrodiuril) 25 mg DAILY PO 04/19/17 09:00 Hold 04/22/17 08:38 (Dilantin) 100 mg TID PO 04/19/17 09:00 04/22/17 12:11 Pravastatin Sodium 80 mg 80 mg HS PO 04/18/17 21:00 04/21/17 22:10 Sodium Chloride 1,000 ml @ 84 mls/hr [id number] IV 04/22/17 12:30 04/22/17 12:37 (Flagyl 500 Mg Inj) 100 ml @ 100 mls/hr Q8H IV 04/22/17 14:00 04/22/17 12:37 A/P Assessment and Plan A: 1. Gastroenteritis 2. Normocytic Anemia due to acute blood loss P: 1. await stool culture to determine cause; monitor I's and O's to see if diarrhea is truly resolving; monitor electrolytes 2. Hgb and Hct are trending upward; most likely, active bleeding has resolved. continue to monitor Hgb and Hct; atient was seen and examined by Dr Hale and Medical student await Bx result, may need colon EGD for diarrhea and anemia inpatient, if not then outpatient Nina Khoury Apr 22, 2017 13:50 Rigo Hale MD Apr 22, 2017 18:21
[2017-04-22] MEDS: AZITHROMYCIN INJ 500 MG in SODIUM CHLOR 0.9% 250 ML INJ 250 ML IV SCH (16:23)
--- NOTE | 2017-04-22 16:29 | RADRPT ---
EXAM DATE/TIME: 04/22/2017 14:42 [facility] COMPARISON: CT ABDOMEN & PELVIS W/O CONTRAST, April 18, 2017, 12:51. INDICATIONS : Increased BUN/creatinine. MEDICAL HISTORY : Aneurysm, abdominal. Aneurysm, intracranial. Hypercholesterolemia. Seizures. HTN. Skin Lupus. Substan ce use. SURGICAL HISTORY : Brain clips. Hernia repair. Blood transfusions. ENCOUNTER: Initial ACUITY: 1 day PAIN SCORE: 0/10 LOCATION: Bilateral flank MEASUREMENTS: RIGHT KIDNEY: 9.4 x 5.3 x 5.6 cm LEFT KIDNEY: 10.1 x 4.7 x 5.2 cm FINDINGS: RIGHT KIDNEY: The right kidney is small with thinned cortex. There is no hydronephrosis. 3 cysts are evident the largest measuring 4 cm. LEFT KIDNEY: Normal size with echogenic cortex. There is no hydronephrosis. 1 cm cysts are evident. BLADDER: Within normal limits given the degree of distension. CONCLUSION: Small echogenic right kidney with thin cortex and no hydronephrosis. Normal size left kidney without hydronephrosis. The 4.6 cm abdominal aortic aneurysm is noted. Wes Porter MD FACR on April 22, 2017 at 16:23 Board Certified Radiologist. This report was verified electronically.
[2017-04-22] MEDS: PRAVASTATIN SOD 80 MG TAB PO SCH (20:43)
[2017-04-23] VITALS: BP 96/72; PULSE 90; RESP 20; TEMP 98.3; O2SAT 91
[2017-04-23] MEDS: SODIUM CHLOR 0.9% 1000 ML INJ 1,000 ML IV SCH (00:25)
[2017-04-23] MEDS ORDERED: HALOPERIDOL 1 MG TAB PO ONE (02:00)
[2017-04-23] MEDS ORDERED: diphenhydrAMINE HCL 25 MG CAP PO ONE (03:00)
[2017-04-23] MEDS: metroNIDAZOLE 500 MG INJ 100 ML IV SCH ×3 (03:01→23:26)
[2017-04-23 06:50] LABS: BASOPHIL % 0.4 % (0.0-2.0); EOSINOPHIL # 0.3 TH/MM3 (0-0.4); EOSINOPHIL % 3.3 % (0.0-4.0); HEMO FLAGS DIFF FINAL; LYMPHOCYTE # 1.8 TH/MM3 (1.0-4.8); MEAN CELL VOLUME 89.3 FL (80.0-100.0); MEAN CORPUSCULAR HEMOGLOBIN 29.5 PG (27.0-34.0); MONO % 8.2 % (0.0-8.0); NEUT % 70.1 % (16.0-70.0); PLATELET COUNT 203 TH/MM3 (150-450); RED BLOOD COUNT 3.58 MIL/MM3 (4.50-5.90); RED CELL DISTRIBUTION WIDTH 14.2 % (11.6-17.2); WHITE BLOOD COUNT 9.9 TH/MM3 (4.0-11.0)
[2017-04-23 06:55] LABS: CHLORIDE 111 MEQ/L (98-107); POTASSIUM 3.4 MEQ/L (3.5-5.1); SODIUM (NA) 146 MEQ/L (136-145)
[2017-04-23 07:20] LABS: ALKALINE PHOSPHATASE 83 U/L (45-117); ALT (GPT) 45 U/L (12-78); ANION GAP 10 MEQ/L (5-15); AST (GOT) 43 U/L (15-37); BICARBONATE 24.8 MEQ/L (21.0-32.0); BLOOD UREA NITROGEN 45 MG/DL (7-18); GLOMERULAR FILTRATION RATE 40 ML/MIN (>89); MAGNESIUM 1.5 MG/DL (1.5-2.5); TOTAL BILIRUBIN ADULT 0.3 MG/DL (0.2-1.0)
[2017-04-23] MEDS: RESP: ALBUTEROL 2.5 MG/IPRATROPIUM 0.5 MG NEB (SCH) NEB ×3 (07:57→19:09)
[2017-04-23] MEDS ORDERED: POTASSIUM CHLORIDE 10 MEQ CONTROLLED RELEASE TAB PO ONE (09:30)
[2017-04-23] MEDS: LACTOBACILLUS ACIDOPHILUS TAB PO SCH ×3 (11:25→17:36)
[2017-04-23] MEDS: ASPIRIN EC 81 MG TABEC PO SCH (11:25)
[2017-04-23] MEDS: PHENYTOIN SODIUM 100 MG CAP PO SCH ×3 (11:26→17:36)
--- NOTE | 2017-04-23 11:41 | RADRPT ---
EXAM DATE/TIME: 04/23/2017 11:03 [facility] COMPARISON: CHEST SINGLE AP, April 18, 2017, 11:28. INDICATIONS : Short of breath. MEDICAL HISTORY : Aneurysm, abdominal. Aneurysm, intracranial. Hypercholesterolemia. Seizures. Hypertension. Substance use. SURGICAL HISTORY : Brain clips. Hernia repair. Blood transfusions. ENCOUNTER: Subsequent ACUITY: 4 - 6 days PAIN SCORE: 0/10 LOCATION: Chest FINDINGS: Focal patchiness is noted within the right lung base consistent with probable pneumonia. Clinical co rrelation is recommended. The heart is stable. The left lung is clear. CONCLUSION: 1. Focal right basilar patchiness consistent with atelectasis and/or pneumonia. Clinical correlatio n is recommended. Og Moody MD on April 23, 2017 at 11:34 Board Certified Radiologist. This report was verified electronically.
--- NOTE | 2017-04-23 11:59 | PD.PN.STU ---
Subjective Remarks S: patient is a 72 year old male who presents today for GI follow up. He states that he's been confused. His last bowel movement was today, and it was solid, with green/darker brown color. He denies any abdominal pain, nausea, vomiting, chest pain, or SOB. Nurse states that he was violent last night to the point that they thought about putting restraints on him. Remaining ROS unremarkable. patient is fully alert and oriented today, had solid BM, no complains wants to go home Objective Vitals Vital Signs Date Time Temp Pulse Resp B/P Pulse Ox O2 Delivery O2 Flow Rate FiO2 04/23/17 00:00 98.3 90 20 96/72 91 04/22/17 20:00 97.7 88 20 105/76 97 04/22/17 19:22 96 Nasal Cannula 2.00 04/22/17 17:21 98.7 98 19 103/71 98 04/22/17 14:40 94 Nasal Cannula 2.00 04/22/17 12:00 97.5 79 18 122/95 94 I/O 04/22/17 04/22/17 04/22/17 04/23/17 04/23/17 04/23/17 07:00 15:00 23:00 07:00 15:00 23:00 Intake Total 350 ml 1190 ml 869 ml Balance 350 ml 1190 ml 869 ml Intake Oral 350 ml 540 ml 520 ml IV Total 650 ml 349 ml # Voids 1 4 3 # Bowel Movements 0 0 O: Gen: WDWN, not in acute distress HEENT: negative Neck: supple no LAD Heart: RRR, nl S1 and S2 Lungs: CTA Abdomen: soft, nontender nondistended. normal bowel sounds, no HSM or masses appreciated, no rebound or guarding Ext: no edema or cyanosis Neuro: alert and oriented x 3; not confused; no focal deficits. agree with above note Result Diagram: 04/23/17 0547 04/23/17 0547 Other Results Laboratory Tests Test 04/22/17 04/23/17 10:34 05:47 White Blood Count 11.2 TH/MM3 (4.0-11.0) Red Blood Count 4.10 MIL/MM3 3.58 MIL/MM3 (4.50-5.90) (4.50-5.90) Hemoglobin 12.3 GM/DL 10.6 GM/DL (13.0-17.0) (13.0-17.0) Hematocrit 36.9 % 32.0 % (39.0-51.0) (39.0-51.0) Neutrophils (%) (Auto) 85.4 % 70.1 % (16.0-70.0) (16.0-70.0) Lymphocytes (%) (Auto) 8.3 % (9.0-44.0) Neutrophils # (Auto) 9.7 TH/MM3 (1.8-7.7) Lymphocytes # (Auto) 0.9 TH/MM3 (1.0-4.8) Blood Urea Nitrogen 44 MG/DL (7-18) 45 MG/DL (7-18) Creatinine 1.90 MG/DL 1.70 MG/DL (0.60-1.30) (0.60-1.30) Estimat Glomerular Filtration 35 ML/MIN (>89) 40 ML/MIN (>89) Rate Random Glucose 112 MG/DL (74-106) Aspartate Amino Transf 49 U/L (15-37) 43 U/L (15-37) (AST/SGOT) Monocytes (%) (Auto) 8.2 % (0.0-8.0) Sodium Level 146 MEQ/L (136-145) Potassium Level 3.4 MEQ/L (3.5-5.1) Chloride Level 111 MEQ/L (98-107) Calcium Level 8.3 MG/DL (8.5-10.1) Total Protein 5.9 GM/DL (6.4-8.2) Albumin 3.0 GM/DL (3.4-5.0) Imaging Last 72 hours Impressions Renal Ultrasound 04/22/17 0000 Signed Impressions: Service Date/Time: Saturday, April 22, 2017 14:42 - CONCLUSION: Small echogenic right kidney with thin cortex and no hydronephrosis. Normal size left kidney without hydronephrosis. The 4.6 cm abdominal aortic aneurysm is noted. Wes Porter MD FACR Head CT 04/21/17 0000 Signed Impressions: Service Date/Time: Friday, April 21, 2017 13:35 - CONCLUSION: 1. No acute abnormality is seen. 2. Aneurysm clips in the right suprasellar region. There is encephalomalacia at the right temporal lobe and postoperative changes from prior right temporal craniotomy. Butch Kumar MD Medications and IVs Current Medications Medications (Trade) Dose Ordered Sig/Mk Route Start Time Stop Time Status Last Admin Ceftriaxone Sodium 2000 mg/ Sodium Chloride 100 ml @ 200 mls/hr Q24H IV 04/19/17 13:00 04/22/17 12:12 (Zithromax Inj/ NS 250 ml Inj) 250 ml @ 250 mls/hr Q24H IV 04/19/17 16:00 04/22/17 16:23 (Lactinex) 1 tab TID PO 04/18/17 18:00 04/23/17 11:25 (Zofran Inj) 4 mg Q6H PRN IV PUSH 04/18/17 17:30 04/22/17 12:39 (Ecotrin Ec) 81 mg DAILY PO 04/19/17 09:00 04/23/17 11:25 (Tenormin) 25 mg DAILY PO 04/19/17 09:00 Hold 04/22/17 08:38 (Hydrodiuril) 25 mg DAILY PO 04/19/17 09:00 Hold 04/22/17 08:38 (Dilantin) 100 mg TID PO 04/19/17 09:00 04/23/17 11:26 Pravastatin Sodium 80 mg 80 mg HS PO 04/18/17 21:00 04/22/17 20:43 Sodium Chloride 1,000 ml @ 84 mls/hr [id number] IV 04/22/17 12:30 04/22/17 12:37 (Flagyl 500 Mg Inj) 100 ml @ 100 mls/hr Q8H IV 04/22/17 14:00 04/22/17 22:00 (SEROquel) 25 mg BID PO 04/23/17 21:00 A/P Assessment and Plan A: 1. Gastroenteritis 2. Normocytic Anemia due to acute blood loss P: 1. await stool culture to determine cause; diarrhea seems to be improving; monitor electrolytes 2. Hgb and Hct decreased to 10 today, continue to monitor Hgb and Hct 3. Consider EGD/colonoscopy for anemia and if diarrhea etiology remains unclear. agree with above note, doing better, will need colon EGD as outpatient in few wks rtc in 2 wks Nina Khoury M3 Apr 23, 2017 11:59 Rigo Hale MD Apr 23, 2017 18:14
[2017-04-23 12:00] VITALS: BP 122/85; PULSE 83; RESP 18; TEMP 98.4; O2SAT 92
[2017-04-23 13:13] VITALS: O2SAT 96
--- NOTE | 2017-04-23 13:46 | HHI.PR ---
Subjective Remarks Sitter at bedside As per RN patient got very agitated last night and became violent, also went out naked to the hallway and refused to get dressed Patient required IV Haldol Stable vital signs Objective Vitals Vital Signs Date Time Temp Pulse Resp B/P Pulse Ox O2 Delivery O2 Flow Rate FiO2 04/23/17 13:13 96 Nasal Cannula 3.00 04/23/17 12:00 98.4 83 18 122/85 92 04/23/17 00:00 98.3 90 20 96/72 91 04/22/17 20:00 97.7 88 20 105/76 97 04/22/17 19:22 96 Nasal Cannula 2.00 04/22/17 17:21 98.7 98 19 103/71 98 04/22/17 14:40 94 Nasal Cannula 2.00 I/O 04/22/17 04/22/17 04/22/17 04/23/17 04/23/17 04/23/17 07:00 15:00 23:00 07:00 15:00 23:00 Intake Total 350 ml 1190 ml 869 ml Balance 350 ml 1190 ml 869 ml Intake Oral 350 ml 540 ml 520 ml IV Total 650 ml 349 ml # Voids 1 4 3 # Bowel Movements 0 0 Result Diagram: 04/23/17 0547 04/23/17 0547 Imaging Last Impressions Renal Ultrasound 04/22/17 0000 Signed Impressions: Service Date/Time: Saturday, April 22, 2017 14:42 - CONCLUSION: Small echogenic right kidney with thin cortex and no hydronephrosis. Normal size left kidney without hydronephrosis. The 4.6 cm abdominal aortic aneurysm is noted. Wes Porter MD FACR Head CT 04/21/17 0000 Signed Impressions: Service Date/Time: Friday, April 21, 2017 13:35 - CONCLUSION: 1. No acute abnormality is seen. 2. Aneurysm clips in the right suprasellar region. There is encephalomalacia at the right temporal lobe and postoperative changes from prior right temporal craniotomy. Butch Kumar MD Abdomen/Pelvis CT 04/18/17 1238 Signed Impressions: Service Date/Time: March 12:51 - CONCLUSION: 1. No abnormality is identified to explain the clinical symptoms. No acute finding is identified on this noncontrast examination. 2. Severe atherosclerotic disease with fusiform infrarenal abdominal aortic aneurysm measuring up to 4.7 cm. 3. Nonacute findings include bilateral renal cysts, sigmoid diverticulosis, and emphysematous changes along with suspected parenchymal scar at the lung bases. Butch Jacob MD Chest X-Ray 04/18/17 1049 Signed Impressions: Service Date/Time: March 11:28 - CONCLUSION: 1. Findings concerning for right middle lobe airspace disease which may reflect pneumonia or aspiration in the appropriate clinical setting. Filiberto Rodriguez MD Chest CT 04/18/17 0000 Signed Impressions: Service Date/Time: March 16:57 - CONCLUSION: 1. Subsegmental consolidation in the right middle lobe and lingula. Primary differential diagnosis is small pneumonia. 2. Mild cylindrical bronchiectasis with peribronchial thickening characteristic of underlying bronchitis. Moderate to severe emphysema. Zachariah Castro MD Objective Remarks GENERAL: This is a well-nourished, well-developed patient, in no apparent distress. SKIN: No rashes, ecchymoses or lesions. Cool and dry. HEAD: Atraumatic. Normocephalic. No temporal or scalp tenderness. EYES: Pupils equal round and reactive. Extraocular motions intact. No scleral icterus. No injection or drainage. ENT: Nose without bleeding, purulent drainage or septal hematoma. Throat without erythema, tonsillar hypertrophy or exudate. Uvula midline. Airway patent. NECK: Trachea midline. No JVD or lymphadenopathy. Supple, nontender, no meningeal signs. CARDIOVASCULAR: Regular rate and rhythm without murmurs, gallops, or rubs. RESPIRATORY: NO wheezing but decreased breath sounds. Some coarse rhonchi on the right lower lung field. GASTROINTESTINAL: Abdomen soft, non-tender, nondistended. No hepato-splenomegaly , or palpable masses. No guarding. MUSCULOSKELETAL: Extremities without clubbing, cyanosis, or edema. No joint tenderness, effusion, or edema noted. No calf tenderness. Negative Homans sign bilaterally. NEUROLOGICAL: Awake and alert. Cranial nerves II through XII intact. Motor and sensory grossly within normal limits. Five out of 5 muscle strength in all muscle groups. Normal speech. Procedures none Medications and IVs Current Medications Medications (Trade) Dose Ordered Sig/Mk Route Start Time Stop Time Status Last Admin Ceftriaxone Sodium 1999 mg/ Sodium Chloride 100 ml @ 200 mls/hr Q24H IV 04/19/17 13:00 04/22/17 12:12 (Zithromax Inj/ NS 250 ml Inj) 250 ml @ 250 mls/hr Q24H IV 04/19/17 16:00 04/22/17 16:23 (Lactinex) 1 tab TID PO 04/18/17 18:00 04/23/17 11:25 (Zofran Inj) 4 mg Q6H PRN IV PUSH 04/18/17 17:30 04/22/17 12:39 (Ecotrin Ec) 81 mg DAILY PO 04/19/17 09:00 04/23/17 11:25 (Tenormin) 25 mg DAILY PO 04/19/17 09:00 Hold 04/22/17 08:38 (Hydrodiuril) 25 mg DAILY PO 04/19/17 09:00 Hold 04/22/17 08:38 (Dilantin) 100 mg TID PO 04/19/17 09:00 04/23/17 11:26 Pravastatin Sodium 80 mg 80 mg HS PO 04/18/17 21:00 04/22/17 20:43 Sodium Chloride 1,000 ml @ 84 mls/hr [id number] IV 04/22/17 12:30 04/22/17 12:37 (Flagyl 500 Mg Inj) 100 ml @ 100 mls/hr Q8H IV 04/22/17 14:00 04/22/17 22:00 (SEROquel) 25 mg BID PO 04/23/17 21:00 Urinary Catheter: No Vascular Central Line Catheter: No A/P Problem List: (1) RML pneumonia ICD Code: J18.1 Status: Acute (2) Gastroenteritis ICD Code: K52.9 Status: Resolved (3) ROSEANNA (acute kidney injury) ICD Code: N17.9 Status: Resolved (4) COPD exacerbation ICD Code: J44.1 Status: Acute (5) AAA (abdominal aortic aneurysm) ICD Code: I71.4 Status: Chronic (6) GI bleed ICD Code: K92.2 Status: Resolved (7) Acute blood loss anemia ICD Code: D62 Status: Resolved (8) Acute delirium ICD Code: R41.0 Status: Acute Plan: Initially thought to be steroid induced, however patient's presenting symptoms of behavior disturbance even after being discontinued from prednisone. Upon discussion with patient's friends, they state that the patient has been having short-term memory issues for quite some time as well as some episodes of aggressiveness. 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 I will start the patient on Seroquel 25 mg by mouth twice a day and consult psychiatry to help manage the patient's symptoms. Assessment and Plan (1) RML pneumonia Plan: This is a 72-year-old male with recent history of nausea vomiting and diarrhea who presents complaining of worsening shortness of breath. Found to have a primary low infiltrate on chest x-ray and diffuse expiratory wheezing on exam. Short of breath likely due to pneumonia and COPD exacerbation given the patient has history of former cigarette smoking and marijuana smoking daily. Right middle lobe infiltrate concerning for aspiration pneumonia given recent episode of nausea and vomiting. Admitted to the medical floor Started on IV Rocephin, IV azithromycin and IV Flagyl to cover for suspected aspiration pneumonia, continue. Continue supplemental oxygen to keep oxygen saturation more than 92% Will check strep pneumococcal antigen and Legionella urinary antigen ----> negative Check sputum culture ---> pending. Blood cultures negative date (2) Gastroenteritis Plan: Patient with nausea and vomiting and diarrhea. Will check stool for C. difficile and stool studies including Gram stain and culture. If diarrhea persists and test negative then will consider GI consultation. Patient states he had a colonoscopy at [facility] 2 years ago and it was reportedly normal. I will start the patient Lactobacillus acidophilus. 04/19 Stool negative for enteric pathogens, No WBC's seen in stool. Other stool studies pending. Appreciate GI input. 04/20 diarrhea resolved. Patient has been cleared by GI to be discharge. 04/21 Had colonoscopy last year at [facility], he can FU as out patient for further W/U (3) ROSEANNA (acute kidney injury) Plan: Creatinine elevated at 1.4, I do not count with old records to compare previous creatinine. Possibly prerenal azotemia secondary to dehydration from nausea vomiting and diarrhea. 04/19 Continue IV normal saline and continue to monitor BUN/creatinine, strict I' s and O's, avoid nephrotoxins. Creatinine trending down. C diff negative. 04/20 Possible ckd stage 3, no previous labs to compare. Creatinine stable at 1.3 with good urine output. 04/22 Worsening creatinine up to 1.9. Will start the patient on IV normal saline. Will check for urine eosinophils, check for kidney us. Continue to monitor BMP, avoid nephrotoxins. 04/23 creatinine trending down, continue IV Fluids. (4) COPD exacerbation Plan: Diffuse bilateral expiratory wheezing and history of chronic smoking 04/19 Continue IV steroids, continue supplemental o2 to keep o2 sat >92%, Continue IV antibiotics We'll place the patient IV steroids, continue supplemental oxygen to keep oxygen saturation more than 92% Continue DuoNeb's every 6 hours while awake and every 2 hours as needed for shortness of breath/wheezing. 04/20 SOB much improved, will order a walk test to see if patient will need oxygen. 04/21 the patient failed to home walk test, will need oxygen to home with. records management manager to arrange. 04/22 will repeat walk test to assess the continued need for oxygen at home. (5) AAA (abdominal aortic aneurysm) Plan: Patient denies abdominal pain. CT abdomen and pelvis showed abdominal aortic aneurysm measuring up to 4.7 cm. There are also reported emphysematous changes along with suspected parenchymal scar at the lung bases. Patient states that his abdominal aortic aneurysm is being monitored as an outpatient at the [facility]. (6) GI bleed Plan: Patient c/o some blood in stool but states it is due to hemorrhoids. Hemoglobin dropped from 13.0 to 11.4, continue to monitor H/H 04/20 Hemoglobin stable, no further bleeding. Patient seen and evaluated by GI. Has had a colonoscopy in year ago at the [facility]. Patient's GI bleed has resolved, tolerated diet. Follow-up as an outpatient (7) Acute blood loss anemia Plan: Due to reported Gi bleed, hemoglobin dropped from 13 to 11.4 GI following 04/22 hemoglobin stable Continue to monitor H/H and transfuse as needed for hb < 9 if active bleeding or < than 7 if no bleeding. DVT prophylaxis: SCD's, no chemoprophylaxis due to GI bleed. Discharge Planning Continue to monitor in the medical floor. Patient with behavioral disturbance. Psych consult pending. Problem Qualifiers (1) RML pneumonia: Qualified Code: J69.0 - Aspiration pneumonia of right middle lobe due to gastric secretions (2) AAA (abdominal aortic aneurysm): Qualified Code: I71.4 - Abdominal aortic aneurysm (AAA) without rupture Rahul Hill MD Apr 23, 2017 13:46
[2017-04-23] MEDS ORDERED: POTASSIUM CHLORIDE INJ 30 MEQ, SODIUM CHLORIDE 23.4% INJ 38.5 MEQ in WATER STERILE FOR ... IV SCH (14:00)
[2017-04-23] MEDS: AZITHROMYCIN INJ 500 MG in SODIUM CHLOR 0.9% 250 ML INJ 250 ML IV SCH (14:21)
[2017-04-23] MEDS: cefTRIAXone INJ 2,000 MG in SODIUM CHLORIDE 0.9% INJ 100 ML IV SCH (14:22)
[2017-04-23 16:00] VITALS: BP 103/62; PULSE 81; RESP 17; TEMP 98.2; O2SAT 96
[2017-04-23] MEDS ORDERED: HALOPERIDOL LACTATE 5 MG/ML AMP IM PRN (16:15)
--- NOTE | 2017-04-23 16:19 | PD.CONS ---
Provisional Diagnosis Admission Date Apr 18, 2017 at 12:50 History of Present Illness Service Psychiatry Consult Requested By Primary Care Physician [facility] Past Family Social History Coded Allergies: No Known Allergies (Unverified , 04/18/17) Active Scripts Metronidazole (Flagyl)500 Mg [id number] Mg PO TID #30 TAB Ref 0 Prov:Rahul Hill MD 04/20/17 Amoxicillin-Clavulanate (Augmentin)875-125 Mg Tab1 Tab PO BID #24 TAB Ref 0 Prov:Rahul Hill MD 04/20/17 Oxygen (O2) Device #3 Liter Brady.canula Continuous Oxygen Concentrator Portable Gaseous 2 L/min via Nasal Canula Continuous For 99 months Prov:Rahul Hill MD 04/20/17 Levofloxacin 500 Mg [id number] Mg PO DAILY #7 TAB Ref 0 Prov:Rahul Hill MD 04/20/17 Prednisone 20 Mg Tab20 Mg PO DIRECTED #11 TAB Ref 0 40 MG twice a day x 3 days, then 20 MG daily x 3 days, then 10 MG daily x 3 days Prov:Rahul Hill MD 04/20/17 Azithromycin 500 Mg [id number] Mg PO DAILY #5 TAB Ref 0 Prov:Rahul Hill MD 04/20/17 Amoxicillin-Clavulanate (Augmentin)875-125 Mg Tab1 Tab PO BID #10 TAB Ref 0 Prov:Rahul Hill MD 04/20/17 Prednisone 20 Mg Tab20 Mg PO DIRECTED #11 TAB Ref 0 40 MG twice a day x 3 days, then 20 MG daily x 3 days, then 10 MG daily x 3 days Prov:Rahul Hill MD 04/20/[address] (Aspirin EC)81 Mg Tabdr81 Mg PO DAILY Ref 0 04/18/17 Simvastatin 40 Mg Tab40 Mg PO HS #30 TAB Ref 0 04/18/17 Phenytoin Extended 100 Mg [id number] Mg PO TID #90 CAP Ref 0 04/18/17 Hydrochlorothiazide 25 Mg Tab25 Mg PO DAILY #30 TAB Ref 0 04/18/17 Atenolol 25 Mg Tab25 Mg PO DAILY #30 TAB 04/18/17 Current Medications Medications (Trade) Dose Ordered Sig/Mk Route Start Time Stop Time Status Last Admin Ceftriaxone Sodium 2000 mg/ Sodium Chloride 100 ml @ 200 mls/hr Q24H IV 04/19/17 13:00 04/23/17 14:22 (Zithromax Inj/ NS 250 ml Inj) 250 ml @ 250 mls/hr Q24H IV 04/19/17 16:00 04/23/17 14:21 (Lactinex) 1 tab TID PO 04/18/17 18:00 04/23/17 14:20 (Zofran Inj) 4 mg Q6H PRN IV PUSH 04/18/17 17:30 04/22/17 12:39 (Ecotrin Ec) 81 mg DAILY PO 04/19/17 09:00 04/23/17 11:25 (Tenormin) 25 mg DAILY PO 04/19/17 09:00 Hold 04/22/17 08:38 (Hydrodiuril) 25 mg DAILY PO 04/19/17 09:00 Hold 04/22/17 08:38 (Dilantin) 100 mg TID PO 04/19/17 09:00 04/23/17 14:20 Pravastatin Sodium 80 mg 80 mg HS PO 04/18/17 21:00 04/22/17 20:43 (Flagyl 500 Mg Inj) 100 ml @ 100 mls/hr Q8H IV 04/22/17 14:00 04/23/17 14:21 Quetiapine Fumarate 25 mg 25 mg BID PO 04/23/17 21:00 (1/2 NS + KCl 20 Meq Inj) 1,000 ml @ 84 mls/hr [id number] IV 04/23/17 14:00 Physical Exam Vital Signs Vital Signs Date Time Temp Pulse Resp B/P Pulse Ox O2 Delivery O2 Flow Rate FiO2 04/23/17 13:13 96 Nasal Cannula 3.00 04/23/17 12:00 98.4 83 18 122/85 04/22/17 09:08 21 I/O 04/22/17 04/22/17 04/23/17 08:00 16:00 00:00 Intake Total 350 ml 1190 ml Balance 350 ml 1190 ml Assessment & Plan Problem List: (1) Delirium Assessment & Plan: will increased Seroquel 50 mg bid for delirium, add haldol 2 mg im Q/8 PRN agitation and aggressive behavior ICD Code: R41.0 Assessment & Plan Estimated LOS: days Luciano Weinberg MD Apr 23, 2017 16:19
[2017-04-23] MEDS: 1/2 NS + KCL 20 MEQ INJ 1,000 ML IV SCH (17:35)
[2017-04-23 19:09] VITALS: O2SAT 97
[2017-04-23 20:00] VITALS: BP 124/70; PULSE 89; RESP 18; TEMP 97.8; O2SAT 95
[2017-04-23] MEDS: PRAVASTATIN SOD 80 MG TAB PO SCH (20:32)
[2017-04-23] MEDS: QUEtiapine FUMARATE 25 MG TAB PO SCH (20:32)
[2017-04-23] MEDS ORDERED: QUEtiapine FUMARATE 25 MG TAB PO SCH (21:00)
[2017-04-24] MEDS: 1/2 NS + KCL 20 MEQ INJ 1,000 ML IV SCH ×2 (01:55→08:13)
[2017-04-24] MEDS: metroNIDAZOLE 500 MG INJ 100 ML IV SCH ×3 (05:08→21:17)
[2017-04-24 06:46] LABS: BASOPHIL # 0.1 TH/MM3 (0-0.2); BASOPHIL % 0.8 % (0.0-2.0); EOSINOPHIL # 0.7 TH/MM3 (0-0.4); EOSINOPHIL % 8.4 % (0.0-4.0); HEMATOCRIT 29.7 % (39.0-51.0); HEMO FLAGS DIFF FINAL; LYMPH % 15.5 % (9.0-44.0); LYMPHOCYTE # 1.4 TH/MM3 (1.0-4.8); MEAN CELL VOLUME 91.6 FL (80.0-100.0); MEAN CORPUSCULAR HEMOGLOBIN 30.8 PG (27.0-34.0); MEAN CORPUSCULAR HGB CONC 33.5 % (32.0-36.0); NEUT % 67.3 % (16.0-70.0); PLATELET COUNT 194 TH/MM3 (150-450); RED BLOOD COUNT 3.24 MIL/MM3 (4.50-5.90); RED CELL DISTRIBUTION WIDTH 14.1 % (11.6-17.2); WHITE BLOOD COUNT 8.9 TH/MM3 (4.0-11.0)
[2017-04-24 06:54] LABS: CHLORIDE 113 MEQ/L (98-107); POTASSIUM 3.7 MEQ/L (3.5-5.1); SODIUM (NA) 147 MEQ/L (136-145)
[2017-04-24 06:59] LABS: ANION GAP 9 MEQ/L (5-15); BICARBONATE 25.4 MEQ/L (21.0-32.0)
[2017-04-24 07:09] LABS: ALKALINE PHOSPHATASE 73 U/L (45-117); ALT (GPT) 39 U/L (12-78); AST (GOT) 37 U/L (15-37); BLOOD UREA NITROGEN 33 MG/DL (7-18); GLOMERULAR FILTRATION RATE 50 ML/MIN (>89); TOTAL BILIRUBIN ADULT 0.3 MG/DL (0.2-1.0)
[2017-04-24] MEDS: RESP: ALBUTEROL 2.5 MG/IPRATROPIUM 0.5 MG NEB (SCH) NEB (07:30)
--- NOTE | 2017-04-24 07:51 | PD.CONS ---
Provisional Diagnosis Admission Date Apr 18, 2017 at 12:50 Franklin I. Delirium due to another underlying medical condition, cannabis use disorder Franklin II. Deferred Franklin III. COPD, Franklin IV. Poor family support Franklin V. 55 History of Present Illness Service Psychiatry Consult Requested By Primary Care Physician [facility] HPI The patient is a 72-year-old man, , , domicile with a roommate in [place], retired, without no previous significant psychiatric history, no previous suicidal attempts, no previous psychiatric hospitalizations , he has been Trazodone 100 mg at bedtime for insomnia, prescribed by PCP, medical history of COPD, aorta abdominal aneurysm, lupus, with recent history of nausea vomiting and diarrhea who presents complaining of worsening shortness of breath. Found to have a primary low infiltrate on chest x-ray and diffuse expiratory wheezing on exam. Short of breath likely due to pneumonia and COPD exacerbation given the patient has history of former cigarette smoking and marijuana smoking daily. For Right middle lobe infiltrate concerning for aspiration pneumonia given recent episode of nausea and vomiting. Admitted to the medical floor Started on IV Rocephin, IV azithromycin and IV Flagyl. Patient consulted to psychiatry due to episode of agitation, disorganized behavior. On psychiatric evaluation today patient is found laying in his bed, calm, cooperative in a good spirit, with a very good sense of humor. Patient reports that he doesn't know what happened with him last night, but for the first time in his life he lost the control of himself and he didn't know what he was doing. As per nurses patient was getting out of his bed, walking naked in the greene, being sexually inappropriate, with very disorganized thinking and behavior, needing ETO's. Patient cannot remember the details of the episode. However, at this moment patient reports good mood, denies depressive symptoms, denies anhedonia, denies hopelessness, denies helplessness, denies worthlessness , denies low self-esteem, poor concentration, denies paranoia with appetite, with energy, he denies suicidal or homicidal ideation, denies visual and auditory hallucinations. Patient is fully oriented 3, without any attention deficit, no fluctuation of consciousness, logical, coherent and relevant. No agitation, no aggressive behavior, no paranoia, no disorganized patient noted at this moment. Patient is future oriented, with plans of present charge, getting better, continue with his life, follow medical recommendations. Patient reports almost daily use of marijuana, he has been using marijuana for many years. He denies the use of alcohol, denies the use of other illicit drugs. He reports he has been using Trazodone 100 mg at nighttime to help with his sleep for many months, prescribed by PCP. Review of Systems Constitutional: DENIES: Diaphoretic episodes, Fatigue, Fever, Weight gain, Weight loss, Chills, Dizziness, Change in appetite, Night Sweats Endocrine: DENIES: Heat/cold intolerance, Polydipsia, Polyuria, Polyphagia Eyes: DENIES: Blurred vision, Diplopia, Eye inflammation, Eye pain, Vision loss , Photosensitivity, Double Vision Ears, nose, mouth, throat: DENIES: Tinnitus, Hearing loss, Vertigo, Nasal discharge, Oral lesions, Throat pain, Hoarseness, Ear Pain, Running Nose, Epistaxis, Sinus Pain, Toothache, Odynophagia Respiratory: DENIES: Apneas, Cough, Snoring, Wheezing, Hemoptysis, Sputum production, Shortness of breath Cardiovascular: DENIES: Chest pain, Palpitations, Syncope, Dyspnea on Exertion , PND, Lower Extremity Edema, Orthopnea, Claudication Genitourinary: DENIES: Sexual dysfunction, Urinary frequency, Urinary incontinence, Urgency, Hematuria, Dysuria, Nocturia, Penile Discharge, Testicular Pain, Testicular Swelling Musculoskeletal: DENIES: Joint pain, Muscle aches, Stiffness, Joint Swelling, Back pain, Neck pain Integumentary: DENIES: Abnormal pigmentation, Nail changes, Pruritus, Rash Hematologic/lymphatic: DENIES: Bruising, Lymphadenopathy Immunologic/allergic: DENIES: Eczema, Urticaria Neurologic: DENIES: Abnormal gait, Headache, Localized weakness, Paresthesias, Seizures, Speech Problems, Tremor, Poor Balance Psychiatric: DENIES: Anxiety, Confusion, Mood changes, Depression, Hallucinations, Agitation, Suicidal Ideation, Homicidal Ideation, Delusions Past Family Social History Coded Allergies: No Known Allergies (Unverified , 04/18/17) Active Scripts Metronidazole (Flagyl)500 Mg [id number] Mg PO TID #30 TAB Ref 0 Prov:Rahul Hill MD 04/20/17 Amoxicillin-Clavulanate (Augmentin)875-125 Mg Tab1 Tab PO BID #24 TAB Ref 0 Prov:Rahul Hill MD 04/20/17 Oxygen (O2) Device #3 Liter Brady.canula Continuous Oxygen Concentrator Portable Gaseous 2 L/min via Nasal Canula Continuous For 99 months Prov:Rahul Hill MD 04/20/17 Levofloxacin 500 Mg [id number] Mg PO DAILY #7 TAB Ref 0 Prov:Rahul Hill MD 04/20/17 Prednisone 20 Mg Tab20 Mg PO DIRECTED #11 TAB Ref 0 40 MG twice a day x 3 days, then 20 MG daily x 3 days, then 10 MG daily x 3 days Prov:Rahul Hill MD 04/20/17 Azithromycin 500 Mg Xjh886 Mg PO DAILY #5 TAB Ref 0 Prov:Rahul Hill MD 04/20/17 Amoxicillin-Clavulanate (Augmentin)875-125 Mg Tab1 Tab PO BID #10 TAB Ref 0 Prov:Rahul Hill MD 04/20/17 Prednisone 20 Mg Tab20 Mg PO DIRECTED #11 TAB Ref 0 40 MG twice a day x 3 days, then 20 MG daily x 3 days, then 10 MG daily x 3 days Prov:Rahul Hill MD 04/20/[address] (Aspirin EC)81 Mg Tabdr81 Mg PO DAILY Ref 0 04/18/17 Simvastatin 40 Mg Tab40 Mg PO HS #30 TAB Ref 0 04/18/17 Phenytoin Extended 100 Mg [id number] Mg PO TID #90 CAP Ref 0 04/18/17 Hydrochlorothiazide 25 Mg Tab25 Mg PO DAILY #30 TAB Ref 0 04/18/17 Atenolol 25 Mg Tab25 Mg PO DAILY #30 TAB 04/18/17 Current Medications Medications (Trade) Dose Ordered Sig/Mk Route Start Time Stop Time Status Last Admin Ceftriaxone Sodium 2000 mg/ Sodium Chloride 100 ml @ 200 mls/hr Q24H IV 04/19/17 13:00 04/23/17 14:22 (Zithromax Inj/ NS 250 ml Inj) 250 ml @ 250 mls/hr Q24H IV 04/19/17 16:00 04/23/17 14:21 (Lactinex) 1 tab TID PO 04/18/17 18:00 04/23/17 17:36 (Zofran Inj) 4 mg Q6H PRN IV PUSH 04/18/17 17:30 04/22/17 12:39 (Ecotrin Ec) 81 mg DAILY PO 04/19/17 09:00 04/23/17 11:25 (Tenormin) 25 mg DAILY PO 04/19/17 09:00 Hold 04/22/17 08:38 (Hydrodiuril) 25 mg DAILY PO 04/19/17 09:00 Hold 04/22/17 08:38 (Dilantin) 100 mg TID PO 04/19/17 09:00 04/23/17 17:36 Pravastatin Sodium 80 mg 80 mg HS PO 04/18/17 21:00 04/23/17 20:32 Metronidazole 100 ml @ 100 mls/hr Q8H IV 04/22/17 14:00 04/24/17 05:08 (1/2 NS + KCl 20 Meq Inj) 1,000 ml @ 84 mls/hr [id number] IV 04/23/17 14:00 04/23/17 17:35 (SEROquel) 50 mg BID PO 04/23/17 21:00 04/23/17 20:32 (Haldol Inj) 2 mg Q8H PRN IM 04/23/17 16:15 Family History Patient denies psychiatric family history Social History Patient is originally from [place], he lives in [place] with roommate, he is , [employer], retired, no kids, he is a , service connected, his highest level of education is some college Physical Exam On physical exam, no psychomotor agitation or retardation, no tremors, no EPS, no disturbance of gait Vital Signs Vital Signs Date Time Temp Pulse Resp B/P Pulse Ox O2 Delivery O2 Flow Rate FiO2 04/23/17 20:00 97.8 89 18 124/70 95 04/23/17 19:09 Nasal Cannula 2.00 04/22/17 09:08 21 I/O 04/23/17 04/23/17 04/23/17 07:59 15:59 23:59 Intake Total 869 ml 2363 ml Balance 869 ml 2363 ml Lab Results 04/23/17 0547 04/23/17 0547 Imaging Last Impressions Renal Ultrasound 04/22/17 0000 Signed Impressions: Service Date/Time: Saturday, April 22, 2017 14:42 - CONCLUSION: Small echogenic right kidney with thin cortex and no hydronephrosis. Normal size left kidney without hydronephrosis. The 4.6 cm abdominal aortic aneurysm is noted. Wes Porter MD FACR Head CT 04/21/17 0000 Signed Impressions: Service Date/Time: Friday, April 21, 2017 13:35 - CONCLUSION: 1. No acute abnormality is seen. 2. Aneurysm clips in the right suprasellar region. There is encephalomalacia at the right temporal lobe and postoperative changes from prior right temporal craniotomy. Butch Kumar MD Abdomen/Pelvis CT 04/18/17 1238 Signed Impressions: Service Date/Time: March 12:51 - CONCLUSION: 1. No abnormality is identified to explain the clinical symptoms. No acute finding is identified on this noncontrast examination. 2. Severe atherosclerotic disease with fusiform infrarenal abdominal aortic aneurysm measuring up to 4.7 cm. 3. Nonacute findings include bilateral renal cysts, sigmoid diverticulosis, and emphysematous changes along with suspected parenchymal scar at the lung bases. Butch Jacob MD Chest X-Ray 04/18/17 1049 Signed Impressions: Service Date/Time: March 11:28 - CONCLUSION: 1. Findings concerning for right middle lobe airspace disease which may reflect pneumonia or aspiration in the appropriate clinical setting. Filiberto Rodriguez MD Chest CT 04/18/17 0000 Signed Impressions: Service Date/Time: March 16:57 - CONCLUSION: 1. Subsegmental consolidation in the right middle lobe and lingula. Primary differential diagnosis is small pneumonia. 2. Mild cylindrical bronchiectasis with peribronchial thickening characteristic of underlying bronchitis. Moderate to severe emphysema. Zachariah Castro MD Mental Status Examination Appearance man, long hair, looks younger than his stated age, good hygiene, calm and cooperative, good sense of humor Speech: Unremarkable Orientation: x3 Memory: Unremarkable Thought Process: Logical Thought Content: Unremarkable Language Fluent and spontaneous Fund of Knowledge Adequate for level of education Hallucination Type: None Attention and Concentration: Good Suicidal Ideation: No Previous Suicide Attempts: No Homicidal Ideation: No Previous Homicide Attempts: No Insight: Good Affect: Good Mood: Appropriate Motor Activity: Normal gait Assessment & Plan Problem List: (1) Delirium Assessment & Plan: On psychiatric evaluation today the patient does not present any significant symptomatology of depression, anxiety, genia or psychosis. The patient denies suicidal and homicidal ideation, he denies visual and auditory hallucinations. Patient is now fully oriented, logical, coherent and relevant. Recent episode of disorganized behavior, agitation, disorientation described by nurses and medical team is most probably related with delirium. Delirium/psychotic behavior most probably secondary to underlying medical conditions, COPD acute exacerbation, ROSEANNA, but also could be related with the use of steroids, now discontinued. Patient does not meet criteria for psychiatric admission. Will restart [id number] mg at bedtime for insomnia. Will increased Seroquel 50 mg bid for delirium, add haldol 2 mg im Q/8 PRN agitation and aggressive behavior. Avoid deliriogenic medications: Benzodiazepines/anticholinergics/steroids/opiates as much as possible. No need a one-to-one, but should be on close observation. Extensive psychoeducation, supportive motivation provided. Patient discussed with primary medical team. We'll follow-up. ICD Code: R41.0 Assessment & Plan Estimated LOS: days Luciano Weinberg MD Apr 24, 2017 07:51
[2017-04-24 07:53] VITALS: O2SAT 92
[2017-04-24 08:00] VITALS: BP 125/83; PULSE 75; RESP 19; TEMP 97.7; O2SAT 98
[2017-04-24] MEDS: QUEtiapine FUMARATE 25 MG TAB PO SCH ×2 (08:14→21:18)
[2017-04-24] MEDS: LACTOBACILLUS ACIDOPHILUS TAB PO SCH ×3 (08:14→17:32)
[2017-04-24] MEDS: ASPIRIN EC 81 MG TABEC PO SCH (08:14)
[2017-04-24] MEDS: PHENYTOIN SODIUM 100 MG CAP PO SCH ×3 (08:14→17:33)
[2017-04-24 12:00] VITALS: BP 119/79; PULSE 72; RESP 18; TEMP 97.8; O2SAT 96
--- NOTE | 2017-04-24 12:54 | HHI.PR ---
Objective Vitals Vital Signs Date Time Temp Pulse Resp B/P Pulse Ox O2 Delivery O2 Flow Rate FiO2 04/24/17 08:00 97.7 75 19 125/83 98 04/24/17 07:53 92 Nasal Cannula 2.00 04/24/17 07:47 2.00 04/23/17 20:00 97.8 89 18 124/70 95 04/23/17 19:09 97 Nasal Cannula 2.00 04/23/17 16:00 98.2 81 17 103/62 96 04/23/17 13:13 96 Nasal Cannula 3.00 I/O 04/23/17 04/23/17 04/23/17 04/24/17 04/24/17 04/24/17 07:00 15:00 23:00 07:00 15:00 23:00 Intake Total 869 ml 2363 ml 480 ml Balance 869 ml 2363 ml 480 ml Intake Oral 520 ml 600 ml IV Total 349 ml 1763 ml 480 ml # Voids 3 8 # Bowel Movements 0 Result Diagram: 04/24/17 0555 04/24/17 0555 Objective Remarks GENERAL: This is a well-nourished, well-developed patient, in no apparent distress. SKIN: No rashes, ecchymoses or lesions. Cool and dry. HEAD: Atraumatic. Normocephalic. No temporal or scalp tenderness. EYES: Pupils equal round and reactive. Extraocular motions intact. No scleral icterus. No injection or drainage. ENT: Nose without bleeding, purulent drainage or septal hematoma. Throat without erythema, tonsillar hypertrophy or exudate. Uvula midline. Airway patent. NECK: Trachea midline. No JVD or lymphadenopathy. Supple, nontender, no meningeal signs. CARDIOVASCULAR: Regular rate and rhythm without murmurs, gallops, or rubs. RESPIRATORY: NO wheezing but decreased breath sounds. Some coarse rhonchi on the right lower lung field. GASTROINTESTINAL: Abdomen soft, non-tender, nondistended. No hepato-splenomegaly , or palpable masses. No guarding. MUSCULOSKELETAL: Extremities without clubbing, cyanosis, or edema. No joint tenderness, effusion, or edema noted. No calf tenderness. Negative Homans sign bilaterally. NEUROLOGICAL: Awake and alert. Cranial nerves II through XII intact. Motor and sensory grossly within normal limits. Five out of 5 muscle strength in all muscle groups. Normal speech. Procedures none A/P Problem List: (1) RML pneumonia ICD Code: J18.1 Status: Acute (2) Gastroenteritis ICD Code: K52.9 Status: Resolved (3) ROSEANNA (acute kidney injury) ICD Code: N17.9 Status: Resolved (4) COPD exacerbation ICD Code: J44.1 Status: Acute (5) AAA (abdominal aortic aneurysm) ICD Code: I71.4 Status: Chronic (6) GI bleed ICD Code: K92.2 Status: Resolved (7) Acute blood loss anemia ICD Code: D62 Status: Resolved (8) Acute delirium ICD Code: R41.0 Status: Acute Assessment and Plan (1) RML pneumonia Plan: This is a 72-year-old male with recent history of nausea vomiting and diarrhea who presents complaining of worsening shortness of breath. Found to have a primary low infiltrate on chest x-ray and diffuse expiratory wheezing on exam. Short of breath likely due to pneumonia and COPD exacerbation given the patient has history of former cigarette smoking and marijuana smoking daily. Right middle lobe infiltrate concerning for aspiration pneumonia given recent episode of nausea and vomiting. Admitted to the medical floor Started on IV Rocephin, IV azithromycin and IV Flagyl to cover for suspected aspiration pneumonia, continue. Continue supplemental oxygen to keep oxygen saturation more than 92% Will check strep pneumococcal antigen and Legionella urinary antigen ----> negative Check sputum culture ---> pending. Blood cultures negative date (2) Gastroenteritis Plan: Patient with nausea and vomiting and diarrhea. Will check stool for C. difficile and stool studies including Gram stain and culture. If diarrhea persists and test negative then will consider GI consultation. Patient states he had a colonoscopy at the [facility] 2 years ago and it was reportedly normal. I will start the patient Lactobacillus acidophilus. 04/19 Stool negative for enteric pathogens, No WBC's seen in stool. Other stool studies pending. Appreciate GI input. 04/20 diarrhea resolved. Patient has been cleared by GI to be discharge. 04/21 Had colonoscopy last year at [facility], he can FU as out patient for further W/U (3) ROSEANNA (acute kidney injury) Plan: Creatinine elevated at 1.4, I do not count with old records to compare previous creatinine. Possibly prerenal azotemia secondary to dehydration from nausea vomiting and diarrhea. 04/19 Continue IV normal saline and continue to monitor BUN/creatinine, strict I' s and O's, avoid nephrotoxins. Creatinine trending down. C diff negative. 04/20 Possible ckd stage 3, no previous labs to compare. Creatinine stable at 1.3 with good urine output. 04/22 Worsening creatinine up to 1.9. Will start the patient on IV normal saline. Will check for urine eosinophils, check for kidney us. Continue to monitor BMP, avoid nephrotoxins. 04/23 creatinine trending down, continue IV Fluids. (4) COPD exacerbation Plan: Diffuse bilateral expiratory wheezing and history of chronic smoking 04/19 Continue IV steroids, continue supplemental o2 to keep o2 sat >92%, Continue IV antibiotics We'll place the patient IV steroids, continue supplemental oxygen to keep oxygen saturation more than 92% Continue DuoNeb's every 6 hours while awake and every 2 hours as needed for shortness of breath/wheezing. 04/20 SOB much improved, will order a walk test to see if patient will need oxygen. 04/21 the patient failed to home walk test, will need oxygen to home with. organizational development manager to arrange. 04/22 will repeat walk test to assess the continued need for oxygen at home. (5) AAA (abdominal aortic aneurysm) Plan: Patient denies abdominal pain. CT abdomen and pelvis showed abdominal aortic aneurysm measuring up to 4.7 cm. There are also reported emphysematous changes along with suspected parenchymal scar at the lung bases. Patient states that his abdominal aortic aneurysm is being monitored as an outpatient at the [facility]. (6) GI bleed Plan: Patient c/o some blood in stool but states it is due to hemorrhoids. Hemoglobin dropped from 13.0 to 11.4, continue to monitor H/H 04/20 Hemoglobin stable, no further bleeding. Patient seen and evaluated by GI. Has had a colonoscopy in year ago at the [facility]. Patient's GI bleed has resolved, tolerated diet. Follow-up as an outpatient (7) Acute blood loss anemia Plan: Due to reported Gi bleed, hemoglobin dropped from 13 to 11.4 GI following 04/22 hemoglobin stable Continue to monitor H/H and transfuse as needed for hb < 9 if active bleeding or < than 7 if no bleeding. DVT prophylaxis: SCD's, no chemoprophylaxis due to GI bleed. Discharge Planning Continue to monitor in the medical floor. Patient with behavioral disturbance. Psych consult pending. Problem Qualifiers (1) RML pneumonia: Qualified Code: J69.0 - Aspiration pneumonia of right middle lobe due to gastric secretions (2) AAA (abdominal aortic aneurysm): Qualified Code: I71.4 - Abdominal aortic aneurysm (AAA) without rupture Rahul Hill MD Apr 24, 2017 12:54
[2017-04-24] MEDS: RESP: ALBUTEROL 2.5 MG/IPRATROPIUM 0.5 MG NEB (PRN) NEB ×2 (13:02→21:45)
[2017-04-24] MEDS: cefTRIAXone INJ 2,000 MG in SODIUM CHLORIDE 0.9% INJ 100 ML IV SCH (13:05)
[2017-04-24] MEDS: POTASSIUM CHLORIDE INJ 20 MEQ, SODIUM CHLORIDE 23.4% INJ 38.5 MEQ in WATER STERILE FOR ... IV SCH ×2 (13:09→21:39)
--- NOTE | 2017-04-24 15:47 | HHI.DS ---
Discharge Summary Admission Date Apr 18, 2017 at 12:50 Discharge Date: Apr 24, 2017 Admitting Diagnosis pneumonia. Renal insufficiency. Gastroenteritis. (1) RML pneumonia ICD Code: J18.1 (2) Gastroenteritis ICD Code: K52.9 (3) ROSEANNA (acute kidney injury) ICD Code: N17.9 (4) COPD exacerbation ICD Code: J44.1 (5) AAA (abdominal aortic aneurysm) ICD Code: I71.4 (6) GI bleed ICD Code: K92.2 (7) Acute blood loss anemia ICD Code: D62 (8) Acute delirium ICD Code: R41.0 Procedures none Brief History - From Admission This is a 72-year-old male with past medical history significant for brain and AAA who presents to [facility] output irene complaining of shortness of breath, which started approximately a week ago and has gotten much worse the past 2-3 days. The patient states that shortness of breath is worse on exertion, denies cough, denies chest pain. The patient states that he has had diarrhea, nausea and vomiting the past 2-3 weeks, last episode of vomiting was approximately 2 weeks ago. The patient denies taking antibiotics recently. The patient denies any exacerbating or relieving factors for the diarrhea. The patient denies chest pain, fevers, chills. CBC/BMP: 04/24/17 0555 04/24/17 0555 Significant Findings Laboratory Tests Test 04/22/17 04/23/17 04/24/17 10:34 05:47 05:55 White Blood Count 11.2 TH/MM3 (4.0-11.0) Red Blood Count 4.10 MIL/MM3 3.58 MIL/MM3 3.24 MIL/MM3 (4.50-5.90) (4.50-5.90) (4.50-5.90) Hemoglobin 12.3 GM/DL 10.6 GM/DL 10.0 GM/DL (13.0-17.0) (13.0-17.0) (13.0-17.0) Hematocrit 36.9 % 32.0 % 29.7 % (39.0-51.0) (39.0-51.0) (39.0-51.0) Neutrophils (%) (Auto) 85.4 % 70.1 % (16.0-70.0) (16.0-70.0) Lymphocytes (%) (Auto) 8.3 % (9.0-44.0) Neutrophils # (Auto) 9.7 TH/MM3 (1.8-7.7) Lymphocytes # (Auto) 0.9 TH/MM3 (1.0-4.8) Blood Urea Nitrogen 44 MG/DL (7-18) 45 MG/DL (7-18) 33 MG/DL (7-18) Creatinine 1.90 MG/DL 1.70 MG/DL 1.40 MG/DL (0.60-1.30) (0.60-1.30) (0.60-1.30) Estimat Glomerular Filtration 35 ML/MIN (>89) 40 ML/MIN (>89) 50 ML/MIN (>89) Rate Random Glucose 112 MG/DL (74-106) Aspartate Amino Transf 49 U/L (15-37) 43 U/L (15-37) (AST/SGOT) Monocytes (%) (Auto) 8.2 % (0.0-8.0) Sodium Level 146 MEQ/L 147 MEQ/L (136-145) (136-145) Potassium Level 3.4 MEQ/L (3.5-5.1) Chloride Level 111 MEQ/L 113 MEQ/L (98-107) (98-107) Calcium Level 8.3 MG/DL 7.9 MG/DL (8.5-10.1) (8.5-10.1) Total Protein 5.9 GM/DL 5.5 GM/DL (6.4-8.2) (6.4-8.2) Albumin 3.0 GM/DL 2.7 GM/DL (3.4-5.0) (3.4-5.0) Eosinophils (%) (Auto) 8.4 % (0.0-4.0) Eosinophils # (Auto) 0.7 TH/MM3 (0-0.4) Imaging Last Impressions Chest X-Ray 04/23/17 0000 Signed Impressions: Service Date/Time: Sunday, April 23, 2017 11:03 - CONCLUSION: 1. Focal right basilar patchiness consistent with atelectasis and/or pneumonia. Clinical correlation is recommended. Og Moody MD Renal Ultrasound 04/22/17 0000 Signed Impressions: Service Date/Time: Saturday, April 22, 2017 14:42 - CONCLUSION: Small echogenic right kidney with thin cortex and no hydronephrosis. Normal size left kidney without hydronephrosis. The 4.6 cm abdominal aortic aneurysm is noted. Wes Porter MD FACR Head CT 04/21/17 0000 Signed Impressions: Service Date/Time: Friday, April 21, 2017 13:35 - CONCLUSION: 1. No acute abnormality is seen. 2. Aneurysm clips in the right suprasellar region. There is encephalomalacia at the right temporal lobe and postoperative changes from prior right temporal craniotomy. Butch Kumar MD Abdomen/Pelvis CT 04/18/17 1238 Signed Impressions: Service Date/Time: March 12:51 - CONCLUSION: 1. No abnormality is identified to explain the clinical symptoms. No acute finding is identified on this noncontrast examination. 2. Severe atherosclerotic disease with fusiform infrarenal abdominal aortic aneurysm measuring up to 4.7 cm. 3. Nonacute findings include bilateral renal cysts, sigmoid diverticulosis, and emphysematous changes along with suspected parenchymal scar at the lung bases. Butch Jacob MD Chest CT 04/18/17 0000 Signed Impressions: Service Date/Time: March 16:57 - CONCLUSION: 1. Subsegmental consolidation in the right middle lobe and lingula. Primary differential diagnosis is small pneumonia. 2. Mild cylindrical bronchiectasis with peribronchial thickening characteristic of underlying bronchitis. Moderate to severe emphysema. Zachariah Castro MD PE at Discharge GENERAL: This is a well-nourished, well-developed patient, in no apparent distress. SKIN: No rashes, ecchymoses or lesions. Cool and dry. HEAD: Atraumatic. Normocephalic. No temporal or scalp tenderness. EYES: Pupils equal round and reactive. Extraocular motions intact. No scleral icterus. No injection or drainage. ENT: Nose without bleeding, purulent drainage or septal hematoma. Throat without erythema, tonsillar hypertrophy or exudate. Uvula midline. Airway patent. NECK: Trachea midline. No JVD or lymphadenopathy. Supple, nontender, no meningeal signs. CARDIOVASCULAR: Regular rate and rhythm without murmurs, gallops, or rubs. RESPIRATORY: NO wheezing but decreased breath sounds. Some coarse rhonchi on the right lower lung field. GASTROINTESTINAL: Abdomen soft, non-tender, nondistended. No hepato-splenomegaly , or palpable masses. No guarding. MUSCULOSKELETAL: Extremities without clubbing, cyanosis, or edema. No joint tenderness, effusion, or edema noted. No calf tenderness. Negative Homans sign bilaterally. NEUROLOGICAL: Awake and alert. Cranial nerves II through XII intact. Motor and sensory grossly within normal limits. Five out of 5 muscle strength in all muscle groups. Normal speech. Pt update on day of discharge The patient was seen by psychiatry. Recommended starting trazodone for insomnia and increasing Seroquel to 50 minutes by mouth twice a day. As per RN report the patient has been very good without any behavioral problems. Sitter states that patient has been behaving very well. Discharge Disposition: Discharge Home Discharge Time: > 30 minutes Discharge Instructions DIET: Follow Instructions for: As Tolerated, No Restrictions Activities you can perform: Regular-No Restrictions Activities to Avoid: Driving for 24 hrs, Strenuous Activity Follow up Referrals: PCP Follow-up - 1 Week New Medications: Amoxicillin-Clavulanate (Augmentin) 875-125 Mg Tab 1 TAB PO BID Infection #24 Ref 0 TAB Azithromycin (Azithromycin) 500 Mg Tab 500 MG PO DAILY Infection #5 Ref 0 TAB Metronidazole (Flagyl) 500 Mg Tab 500 MG PO TID Infection #30 Ref 0 TAB Oxygen (O2) (Oxygen (O2)) Device 2 LITER DELLA.CANULA CONTINUOUS Oxygen Concentrator Portable Gaseous 2 L/min via Nasal Canula Continuous For 99 months Prevent Hypoxemia #3 CYLINDER Continued Medications: Aspirin DR (Aspirin EC) 81 Mg Tabdr 81 MG PO DAILY Ref 0 TAB Atenolol (Atenolol) 25 Mg Tab 25 MG PO DAILY Blood Pressure Management #30 TAB Hydrochlorothiazide (Hydrochlorothiazide) 25 Mg Tab 25 MG PO DAILY #30 Ref 0 TAB Phenytoin Extended (Phenytoin Extended) 100 Mg Cap 100 MG PO TID Control Seizures #90 Ref 0 CAP Simvastatin (Simvastatin) 40 Mg Tab 40 MG PO HS Cholesterol Management #30 Ref 0 TAB Rahul Hill MD Apr 24, 2017 15:47
[2017-04-24 16:00] VITALS: BP 142/94; PULSE 99; RESP 19; TEMP 98; O2SAT 98
[2017-04-24] MEDS: AZITHROMYCIN INJ 500 MG in SODIUM CHLOR 0.9% 250 ML INJ 250 ML IV SCH (16:25)
[2017-04-24 20:00] VITALS: BP 141/101; PULSE 91; RESP 18; TEMP 99.6; O2SAT 94
[2017-04-24] MEDS ORDERED: traZODone HCL 100 MG TAB PO SCH (21:00)
[2017-04-24] MEDS: PRAVASTATIN SOD 80 MG TAB PO SCH (21:18)
[2017-04-24 21:45] VITALS: O2SAT 96
[2017-04-25] VITALS: BP 117/72; PULSE 96; RESP 16; TEMP 99.1; O2SAT 96
[2017-04-25] MEDS: metroNIDAZOLE 500 MG INJ 100 ML IV SCH (05:39)
[2017-04-25 06:24] LABS: POTASSIUM 4.4 MEQ/L (3.5-5.1)
[2017-04-25 06:27] LABS: BICARBONATE 24.1 MEQ/L (21.0-32.0)
[2017-04-25 08:00] VITALS: BP 126/88; PULSE 91; RESP 20; TEMP 98.6; O2SAT 96
[2017-04-25 08:05] VITALS: O2SAT 97
[2017-04-25] MEDS: LACTOBACILLUS ACIDOPHILUS TAB PO SCH ×2 (09:03→14:36)
[2017-04-25] MEDS: QUEtiapine FUMARATE 25 MG TAB PO SCH (09:04)
[2017-04-25] MEDS: PHENYTOIN SODIUM 100 MG CAP PO SCH ×2 (09:04→14:36)
[2017-04-25] MEDS: ASPIRIN EC 81 MG TABEC PO SCH (09:14)
[2017-04-25 12:00] VITALS: BP 121/79; PULSE 96; RESP 20; TEMP 98.9; O2SAT 94
== END 2017-04-25 14:45 | disposition home or self-care (01) | DRG 194 ==
LOC: PHED 10:26 → PHEDA 12:50 → PH3B 15:37
PROVIDERS: ADMIT Hospitalist; ATTEND Hospitalist
DX: J18.9 Pneumonia, unspecified organism (principal); J44.0 Chronic obstructive pulmonary disease with (acute) lower respiratory infection; N17.9 Acute kidney failure, unspecified; D62 Acute posthemorrhagic anemia; N28.1 Cyst of kidney, acquired; G40.909 Epilepsy, unspecified, not intractable, without status epilepticus; F03.90 Unspecified dementia, unspecified severity, without behavioral disturbance, psychotic disturbance, mood disturbance, and anxiety; J44.1 Chronic obstructive pulmonary disease with (acute) exacerbation; E78.5 Hyperlipidemia, unspecified; G47.00 Insomnia, unspecified; I10 Essential (primary) hypertension; I71.4 Abdominal aortic aneurysm, without rupture; K52.9 Noninfective gastroenteritis and colitis, unspecified; K57.30 Diverticulosis of large intestine without perforation or abscess without bleeding; K64.9 Unspecified hemorrhoids; T38.0X5A Adverse effect of glucocorticoids and synthetic analogues, initial encounter; F12.90 Cannabis use, unspecified, uncomplicated; Z79.899 Other long term (current) drug therapy; Z87.891 Personal history of nicotine dependence
CPT/HCPCS: 70450; 71010; 71250; 74176; 76775; 80048; 80053; 81001; 83605; 83690; 83735; 84100; 85025; 85027; 85610; 85730; 87015; 87040; 87116; 87205; 87206; 87328; 87329; 87425; 87449; 87493; 87506; 94620; 94640; 94664; 96361; 96374; J0456; J0696; J1630; J2405; J2920; J2930; J3480; J7030; J7050; J7512

== ENCOUNTER 2018-03-14 11:59 | Emergency (ER) | payer OTHER, MEDICARE ==
[~2018-03-14] VITALS: Ht 177.8 cm; Wt 66.2 kg
[~2018-03-14 11:59] MED LIST: ASPI81TA23 PO; ATEN25TA PO; AUGM875T3 PO; AZIT500T2 PO; HYDR25TA5 PO; METR-1 PO; OXYGENDME NAS.CANULA; PHEN100C PO; SIMV40TA PO
[2018-03-14 12:06] VITALS: BP 119/60; PULSE 85; RESP 20; TEMP 98.9; O2SAT 93
[2018-03-14] MEDS ORDERED: predniSONE 20 MG TAB PO ONE (13:00)
[2018-03-14] MEDS: RESP: ALBUTEROL 2.5 MG/IPRATROPIUM 0.5 MG NEB (SCH) INH ×2 (13:13→13:15)
--- NOTE | 2018-03-14 13:13 | RADRPT ---
EXAM DATE/TIME: 03/14/2018 13:04 [place] COMPARISON: CT THORAX W/O CONTRAST, April 18, 2017, 16:57. CHEST SINGLE AP, April 23, 2017, 11:03. INDICATIONS : Cough MEDICAL HISTORY : Aneurysm, abdominal. Aneurysm, intracranial. Hypercholesterolemia. Seizures. SURGICAL HISTORY : Brain clips. Hernia repair. Blood transfusions. ENCOUNTER: Initial ACUITY: 3 days PAIN SCORE: 0/10 LOCATION: Bilateral chest FINDINGS: Severe emphysema is noted. There is borderline cardiomegaly. Patchy right lower lobe and right middle lobe opacity seen. This is not significantly changed. CONCLUSION: Severe emphysema and patchy right middle and lower lobe consolidation. Kirit Colby MD on March 14, 2018 at 13:11 Board Certified Radiologist. This report was verified electronically.
[2018-03-14] MEDS ORDERED: AZITHROMYCIN INJ 500 MG in SODIUM CHLOR 0.9% 250 ML INJ 250 ML IV STA (13:24)
[2018-03-14] MEDS ORDERED: cefTRIAXone INJ 1,000 MG in SODIUM CHLORIDE 0.9% INJ 100 ML IV ONE (13:30)
--- NOTE | 2018-03-14 13:31 | PD ---
HPI Chief Complaint: Cold / Flu Symptoms Time Seen by Provider: 12:54 Travel History International Travel<30 days: No Contact w/Intl Traveler<30days: No Traveled to known affect area: No History of Present Illness HPI 73-year-old male here for evaluation of upper respiratory-like symptoms 2 days. He is reporting nasal congestion and sore throat. He reports his neighbors who he has frequent contact with have similar symptoms and told him he should be evaluated by his doctor. They were both diagnosed with viral URI. He reports he took his temperature and it read either 100.1 or 101. On recheck he was 98.8. to that point he was unaware that he had a fever. He reports an occasional chronic cough with chronic mild dyspnea. He is O2 dependent at home. He denies any worsening in his breathing. He reports he feels overall well and only came in for evaluation because his neighbors encouraged to 0. PFSH Past Medical History Hx Anticoagulant Therapy: Yes (ASA 81) Cardiovascular Problems: Yes (HTN, high chol, ID) High Cholesterol: Yes Cerebrovascular Accident: Yes (CVA) Diabetes: No Diminished Hearing: No Hypertension: Yes Respiratory: Yes (COPD) Seizures: Yes Tetanus Vaccination: Unknown Past Surgical History Abdominal Surgery: Yes (HERNIA REPAIR) Neurologic Surgery: Yes (BRAIN CLIPS) Social History Alcohol Use: No Tobacco Use: No Substance Use: Yes ("WEED") Allergies-Medications (Allergen,Severity, Reaction): Coded Allergies: No Known Allergies (Unverified Adverse Reaction, Unknown, 03/14/18) Reported Meds & Prescriptions Reported Meds & Active Scripts Active Oxygen (O2) Device 2 Liter DELLA.CANULA CONTINUOUS Oxygen Concentrator Portable Gaseous 2 L/min via Nasal Canula Continuous For 99 months Reported Aspirin EC (Aspirin) 81 Mg Tabdr 81 Mg PO DAILY Simvastatin 40 Mg Tab 40 Mg PO HS Phenytoin Extended 100 Mg Cap 100 Mg PO TID Hydrochlorothiazide 25 Mg Tab 25 Mg PO DAILY Atenolol 25 Mg Tab 25 Mg PO DAILY Review of Systems Except as stated in HPI: all other systems reviewed are Neg General / Constitutional: Positive: Fever Eyes: No: Visual changes HENT: Positive: Congestion, No: Headaches Cardiovascular: No: Chest Pain or Discomfort Respiratory: Positive: Cough Gastrointestinal: No: Abdominal Pain Genitourinary: No: Dysuria Musculoskeletal: No: Pain Skin: No Rash Neurologic: No: Weakness Physical Exam Narrative GENERAL: Alert and well-appearing 73-year-old male. SKIN: Warm and dry. No rash HEAD: Normocephalic. EYES: No scleral icterus. No injection or drainage. ENT: Clear nasal discharge. No pharyngeal erythema. Mucous members are moist NECK: Supple, trachea midline. No JVD or lymphadenopathy. CARDIOVASCULAR: Regular rate and rhythm without murmurs, gallops, or rubs. RESPIRATORY: Breath sounds equal bilaterally. No accessory muscle use. Diffuse expiratory wheezes. No rales or rhonchi. GASTROINTESTINAL: Abdomen soft, non-tender, nondistended. MUSCULOSKELETAL: No cyanosis, or edema. BACK: Nontender without obvious deformity. No CVA tenderness. Data Data Last Documented VS Vital Signs Date Time Temp Pulse Resp B/P (MAP) Pulse Ox O2 Delivery O2 Flow Rate FiO2 03/14/18 12:06 98.9 85 20 119/60 (79) 93 Orders Orders Chest, Single Ap (03/14/18 ) Prednisone (Deltasone) (03/14/18 13:00) Complete Blood Count With Diff (03/14/18 12:59) Comprehensive Metabolic Panel (03/14/18 12:59) Influenzae A/B Antigen (03/14/18 12:59) Iv Access Insert/Monitor (03/14/18 12:59) Albuterol-Ipratropium Neb (Duoneb Neb) (03/14/18 13:00) Lactic Acid Sepsis Protocol (03/14/18 12:59) Azithromycin Inj (Zithromax Inj) (03/14/18 13:24) Ceftriaxone Inj (Rocephin Inj) (03/14/18 13:30) Labs Laboratory Tests Test 03/14/18 13:35 White Blood Count 5.4 TH/MM3 Red Blood Count 4.33 MIL/MM3 Hemoglobin 12.7 GM/DL Hematocrit 38.2 % Mean Corpuscular Volume 88.3 FL Mean Corpuscular Hemoglobin 29.3 PG Mean Corpuscular Hemoglobin Concent 33.2 % Red Cell Distribution Width 13.8 % Platelet Count 145 TH/MM3 Mean Platelet Volume 7.4 FL Neutrophils (%) (Auto) 54.5 % Lymphocytes (%) (Auto) 22.1 % Monocytes (%) (Auto) 9.0 % Eosinophils (%) (Auto) 14.0 % Basophils (%) (Auto) 0.4 % Neutrophils # (Auto) 2.9 TH/MM3 Lymphocytes # (Auto) 1.2 TH/MM3 Monocytes # (Auto) 0.5 TH/MM3 Eosinophils # (Auto) 0.8 TH/MM3 Basophils # (Auto) 0.0 TH/MM3 CBC Comment DIFF FINAL Differential Comment Blood Urea Nitrogen 27 MG/DL Creatinine 1.20 MG/DL Random Glucose 140 MG/DL Total Protein 7.7 GM/DL Albumin 3.6 GM/DL Calcium Level 8.9 MG/DL Alkaline Phosphatase 181 U/L Aspartate Amino Transf (AST/SGOT) 24 U/L Alanine Aminotransferase (ALT/SGPT) 24 U/L Total Bilirubin 0.3 MG/DL Sodium Level 140 MEQ/L Potassium Level 3.5 MEQ/L Chloride Level 104 MEQ/L Carbon Dioxide Level 29.9 MEQ/L Anion Gap 6 MEQ/L Estimat Glomerular Filtration Rate 59 ML/MIN Lactic Acid Level 1.5 mmol/L MDM Medical Decision Making Medical Screen Exam Complete: Yes Emergency Medical Condition: Yes Differential Diagnosis Pneumonia, bronchitis, influenza, acute exacerbation of COPD Narrative Course 73-year-old male with chief complaint of nasal congestion. He has a history of COPD and is O2 dependent on 2 L at home. He denies any worsening dyspnea. Overall he is well-appearing. He reports feeling in his normal state of health and only here because his neighbors urged him because they are both being treated for upper respiratory infections. On exam he was found to have diffuse expiratory wheeze. Given his age and question of possible fever workup was initiated. X-ray found severe emphysema and patchy right middle lower lobe consolidation not significantly changed from his prior in 2016. His lab work was reassuring. He was given steroids, breathing treatment, IV antibiotics. On reexam patient reports symptom improvement and is requesting discharge. He is adamant that he does not want to be admitted. Risks of worsening condition discussed. He accepts these risks and still would like to be discharged. Given his clinical presentation and reassuring labs he will be treated with oral antibiotics with strict return precautions. He verbalizes understanding and agrees plan Diagnosis Primary Impression: Pneumonia Qualified Codes: J18.1 - Lobar pneumonia, unspecified organism Referrals: Primary Care Physician Additional Instructions: Antibiotics as directed Follow-up with her primary doctor for recheck Return to the emergency department if he develop worsening symptoms Scripts Albuterol 18 GM Inh (Ventolin Hfa 18 GM Inh) 90 Mcg/Act Aer 2 PUFF INH Q4-6H Y for SHORTNESS OF BREATH, #1 INHALER 0 Refills Prov: Jacqueline Santoyo 03/14/18 Prednisone (Prednisone) 20 Mg Tab 40 MG PO DAILY, #8 TAB 0 Refills Take 40 mg (2 tablets) daily for 5 days Prov: Jacqueline Santoyo 03/14/18 Levofloxacin (Levaquin) 500 Mg Tablet 500 MG PO DAILY for Infection for 7 Days, #7 TAB 0 Refills Prov: Jacqueline Santoyo 03/14/18 Disposition: 01 DISCHARGE HOME Condition: Stable Jacqueline Santoyo March 14, 2018 13:31
[2018-03-14 13:49] LABS: AUTOMATED NEUTROPHIL # 2.9 TH/MM3 (1.8-7.7); BASOPHIL % 0.4 % (0.0-2.0); EOSINOPHIL # 0.8 TH/MM3 (0-0.4); HEMATOCRIT 38.2 % (39.0-51.0); HEMOGLOBIN 12.7 GM/DL (13.0-17.0); LYMPH % 22.1 % (9.0-44.0); LYMPHOCYTE # 1.2 TH/MM3 (1.0-4.8); MEAN CELL VOLUME 88.3 FL (80.0-100.0); MEAN CORPUSCULAR HEMOGLOBIN 29.3 PG (27.0-34.0); MEAN CORPUSCULAR HGB CONC 33.2 % (32.0-36.0); MEAN PLATELET VOLUME 7.4 FL (7.0-11.0); MONOCYTE # 0.5 TH/MM3 (0-0.9); NEUT % 54.5 % (16.0-70.0); PLATELET COUNT 145 TH/MM3 (150-450); RED BLOOD COUNT 4.33 MIL/MM3 (4.50-5.90); RED CELL DISTRIBUTION WIDTH 13.8 % (11.6-17.2); WHITE BLOOD COUNT 5.4 TH/MM3 (4.0-11.0)
[2018-03-14 14:03] LABS: CHLORIDE 104 MEQ/L (98-107); SODIUM (NA) 140 MEQ/L (136-145)
[2018-03-14 14:07] LABS: ALBUMIN 3.6 GM/DL (3.4-5.0); BICARBONATE 29.9 MEQ/L (21.0-32.0); BLOOD UREA NITROGEN 27 MG/DL (7-18); CALCIUM 8.9 MG/DL (8.5-10.1); GLUCOSE,RANDOM 140 MG/DL (74-106)
[2018-03-14 14:10] LABS: ALT (GPT) 24 U/L (12-78); AST (GOT) 24 U/L (15-37); GLOMERULAR FILTRATION RATE 59 ML/MIN (>89)
[2018-03-14 14:12] LABS: TOTAL BILIRUBIN ADULT 0.3 MG/DL (0.2-1.0); TOTAL PROTEIN 7.7 GM/DL (6.4-8.2)
[2018-03-14 14:13] LABS: ALKALINE PHOSPHATASE 181 U/L (45-117)
[2018-03-14] MEDS ORDERED: LEVA500T33 PO (14:46)
[2018-03-14] MEDS ORDERED: VENTAER INH (14:46)
[2018-03-14] MEDS ORDERED: PRED20 PO (14:46)
[2018-03-14 15:36] VITALS: BP 108/67
== END 2018-03-14 15:38 | disposition home or self-care (01) ==
LOC: PHEFT 11:59
DX: J18.1 Lobar pneumonia, unspecified organism (principal); J44.0 Chronic obstructive pulmonary disease with (acute) lower respiratory infection; I10 Essential (primary) hypertension; E78.00 Pure hypercholesterolemia, unspecified; I25.2 Old myocardial infarction; Z99.81 Dependence on supplemental oxygen; Z86.73 Personal history of transient ischemic attack (TIA), and cerebral infarction without residual deficits; Z79.899 Other long term (current) drug therapy
CPT/HCPCS: 71045; 80053; 83605; 85025; 87804; 94640; 94664; 96365; 96375; 99284; J0456; J0696; J7050; J7512

== ENCOUNTER 2018-06-05 16:04 | Inpatient (IN) ==
[2018-06-05] MEDS ORDERED: MethylPREDNISolone Sod Succinate Inj 125 MG/2 ML Vial IV.PUSH ONE (16:47)
--- NOTE | 2018-06-05 16:53 | ED ---
HPI General Chief complaint: Respiratory Symptoms Stated complaint: body aches/cough/poss pneumonia Time Seen by Provider: 06/05/18 16:40 Source: patient Mode of arrival: ambulatory Limitations: no limitations History of Present Illness HPI narrative: 73yo M with PMH of COPD on home O2 3L PRN at night, nonhodgkin's lymphoma presents to the ED with c/o sob for 10 days. Said his friend came to visit and told him to come to ED because she thinks it's pneumonia. Pt with cough but no fever. Denies any chest pain, n/v, abdominal pain, focal weakness or numbness. Pt denies any PE/DVT, hemoptysis, recent surgery. Related Data Home Medications Medication Instructions Recorded Confirmed Unable to Obtain Home Meds 06/05/18 06/05/18 Allergies Allergy/AdvReac Type Severity Reaction Status Date / Time No Known Allergies Unknown Uncoded 03/14/18 12:16 Review of Systems ROS: all other systems reviewed are negative [facility] Medical History Medical History Abdominal aneurysm (Acute) COPD (chronic obstructive pulmonary disease) (Acute) Insomnia (Acute) Lupus (Acute) Seizures (Acute) Social History Social History Substance History: Active Abuse Second Hand Smoke Exposure: No Smoking Status: Never smoker How Often Do You Have a Drink Containing Alcohol: Never Exam Narrative Exam Narrative: GENERAL: 73yo M in mild distress. SKIN: Focused skin assessment warm/dry. HEAD: Atraumatic. Normocephalic. EYES: Pupils equal and round. No scleral icterus. No injection or drainage. ENT: No nasal bleeding or discharge. Mucous membranes pink and moist. NECK: Trachea midline. No JVD. CARDIOVASCULAR: Tachycardic in the 110s. No murmur appreciated. RESPIRATORY: + accessory muscle use. Clear to auscultation. Decreased breath sounds bilaterally. O2 sat 97% on 2L NC. GASTROINTESTINAL: Abdomen soft, non-tender, nondistended. MUSCULOSKELETAL: No obvious deformities. No clubbing. No cyanosis. Trace bilateral lower extremity edema. NEUROLOGICAL: Awake and alert. No obvious cranial nerve deficits. Motor grossly within normal limits. Normal speech. PSYCHIATRIC: Appropriate mood and affect; insight and judgment normal. Course Initial Documented Vital Signs Temperature 98.9 F 06/05/18 16:30 Pulse Rate 118 H 06/05/18 16:30 Respiratory Rate 24 06/05/18 16:30 Blood Pressure 110/58 L 08/09/18 16:30 Pulse Oximetry 92 L 06/05/18 16:30 Last Documented Vital Signs Temperature 98.9 F 06/05/18 16:30 Pulse Rate 134 H 06/05/18 18:38 Respiratory Rate 18 06/05/18 18:38 Blood Pressure 118/77 06/05/18 18:38 Pulse Oximetry 97 06/05/18 18:38 Critical Care Time Critical Care Time: Yes Total Critical Care Time: 45 Attestation: Aggregate critical care time was 45 minutes. Time to perform other separately billable procedures was not included in the critical care time. My time did not include minutes spent treating any other patients simultaneously or on activities that did not directly contribute to the patient's treatment. The services I provided to this patient were to treat and/or prevent clinically significant deterioration that could result in: cardiovascular collapse or . I provided critical care services requiring my management, as noted below: Chart data review, documentation time, medication orders and management, vital sign assessments/reviewing monitor data, ordering and reviewing lab tests, ordering and interpreting/reviewing x-rays and diagnostic studies, care of the patient and discussion of the patient with the admitting physicians. Medical Decision Making MDM Narrative Medical decision making narrative: 73yo M with sob for 10 days. Pt is tachypneic and tachycardic. Labs reviewed, no leukocytosis. H/H low at 11.8/ 34.9. Troponin negative. BUN elevated at 31. Pt is not wheezing but has COPD so given duonebs x3 and methylprednisolone. Pt reevaluated at bedside and feels better. Pt is receiving his first NS IVF and HR is now fluctuating from 120s to low 130s. It appears irregular on the monitor. Will repeat EKG. Repeat EKG showed sinus tachycardia at 125bpm with frequent PACs. There are p waves. CXR showed patchy infiltrate of both lungs. Pt given ceftriaxone and azithromycin. Accepted to Dr. García's service. Differential Diagnosis Differential Diagnosis: Pneumonia vs. pleural effusion vs. COPD exacerbation vs. PE Lab Data Result diagrams: 06/05/18 17:05 06/05/18 17:33 Lab Results 06/05/18 06/05/18 06/05/18 Range/Units 17:05 17:05 17:05 CBC w Diff Auto diff final WBC 5.3 (4.0-11.0) th/mm3 RBC 3.93 L (4.50-5.90) mil/mm3 Hgb 11.8 L (13.0-17.0) gm/dL Hct 34.9 L (39.0-51.0) % MCV 88.6 (80.0-100.0) fL MCH 30.1 (27.0-34.0) pg MCHC 33.9 (32.0-36.0) % RDW 14.5 (11.6-17.2) % Plt Count 289 (150-450) th/mm3 MPV 7.7 (7.0-11.0) fL Neut % (Auto) 54.7 (16.0-70.0) % Lymph % (Auto) 21.8 (9.0-44.0) % [place] % (Auto) 7.9 (0.0-8.0) % Eos % (Auto) 12.3 H (0.0-4.0) % Baso % (Auto) 3.3 H (0.0-2.0) % Neut # (Auto) 2.8 (1.8-7.7) th/mm3 Lymph # (Auto) 1.2 (1.0-4.8) th/mm3 [place] # (Auto) 0.4 (0.0-0.9) th/mm3 Eos # (Auto) 0.7 H (0.0-0.4) th/mm3 Baso # (Auto) 0.2 (0.0-0.2) th/mm3 WBC Differential . Differential Comment . PT 10.7 (9.8-11.6) sec INR 1.1 Ratio APTT 28.1 (24.3-30.1) sec Sodium (136-145) meq/L Potassium (3.5-5.1) meq/L Chloride (98-107) meq/L Carbon Dioxide (21.0-32.0) meq/L Anion Gap (5-15) meq/L BUN (7-18) mg/dL Creatinine (0.60-1.30) mg/dL Estimated GFR (>89) mL/min Random Glucose (74-106) mg/dL Lactic Acid (0.4-2.0) mmol/L Calcium (8.5-10.1) mg/dL Total Bilirubin (0.2-1.0) mg/dL AST (15-37) U/L ALT (12-78) U/L Alkaline Phosphatase (45-117) U/L Troponin I (0.02-0.05) ng/mL B-Natriuretic Peptide 85 (0-100) pg/mL Total Protein (6.4-8.2) g/dL Albumin (3.4-5.0) g/dL 06/05/18 06/05/18 Range/Units 17:05 17:33 CBC w Diff WBC (4.0-11.0) th/mm3 RBC (4.50-5.90) mil/mm3 Hgb (13.0-17.0) gm/dL Hct (39.0-51.0) % MCV (80.0-100.0) fL MCH (27.0-34.0) pg MCHC (32.0-36.0) % RDW (11.6-17.2) % Plt Count (150-450) th/mm3 MPV (7.0-11.0) fL Neut % (Auto) (16.0-70.0) % Lymph % (Auto) (9.0-44.0) % [place] % (Auto) (0.0-8.0) % Eos % (Auto) (0.0-4.0) % Baso % (Auto) (0.0-2.0) % Neut # (Auto) (1.8-7.7) th/mm3 Lymph # (Auto) (1.0-4.8) th/mm3 [place] # (Auto) (0.0-0.9) th/mm3 Eos # (Auto) (0.0-0.4) th/mm3 Baso # (Auto) (0.0-0.2) th/mm3 WBC Differential Differential Comment PT (9.8-11.6) sec INR Ratio APTT (24.3-30.1) sec Sodium 139 (136-145) meq/L Potassium 3.8 (3.5-5.1) meq/L Chloride 103 (98-107) meq/L Carbon Dioxide 31.2 (21.0-32.0) meq/L Anion Gap 5 (5-15) meq/L BUN 31 H (7-18) mg/dL Creatinine 1.20 (0.60-1.30) mg/dL Estimated GFR 59 L (>89) mL/min Random Glucose 98 (74-106) mg/dL Lactic Acid 0.6 (0.4-2.0) mmol/L Calcium 8.6 (8.5-10.1) mg/dL Total Bilirubin 0.3 (0.2-1.0) mg/dL AST 23 (15-37) U/L ALT 27 (12-78) U/L Alkaline Phosphatase 151 H (45-117) U/L Troponin I Less than 0.02 L (0.02-0.05) ng/mL B-Natriuretic Peptide (0-100) pg/mL Total Protein 7.5 (6.4-8.2) g/dL Albumin 3.4 (3.4-5.0) g/dL Imaging Data Radiologist's impression: Chest X-Ray 06/05/18 16:47 CONCLUSION: Patchy infiltrate of both lungs. ECG Data EKG Prior to Arrival: No Attestation: I personally reviewed and interpreted this ECG as follows: Interpretation: EKG #1 Sinus tachycardia at 118bpm. LAD. No ST segment elevation or depression. EKG#2: Sinus tachycardia at 125bpm. LAD. Frequent PACs. Discharge Plan Discharge Disposition Patient Disposition: 30 Still Patient Discharge Details Diagnosis: Pneumonia Physicians Team ED Provider: Ginger Kessler Primary Care Provider: Primary Care Janneth [place] Rxs /Orders / Referrals /Forms Prescriptions: No Action Unable to Obtain Home Meds RF: 0 Status ED Status: Admitted Patient
[2018-06-05 17:19] LABS: Baso # (Auto) 0.2 th/mm3 (0.0-0.2); Baso % (Auto) 3.3 % (0.0-2.0); Eos # (Auto) 0.7 th/mm3 (0.0-0.4); Eos % (Auto) 12.3 % (0.0-4.0); Hematocrit 34.9 % (39.0-51.0); Hemoglobin 11.8 gm/dL (13.0-17.0); Lymph # (Auto) 1.2 th/mm3 (1.0-4.8); Lymph % (Auto) 21.8 % (9.0-44.0); Mean Corpuscular HGB Conc 33.9 % (32.0-36.0); Mean Corpuscular Hemoglobin 30.1 pg (27.0-34.0); Mean Corpuscular Volume 88.6 fL (80.0-100.0); Mean Platelet Volume 7.7 fL (7.0-11.0); Mono # (Auto) 0.4 th/mm3 (0.0-0.9); Mono % (Auto) 7.9 % (0.0-8.0); Neut # (Auto) 2.8 th/mm3 (1.8-7.7); Neut % (Auto) 54.7 % (16.0-70.0); Platelet Count 289 th/mm3 (150-450); Red Blood Count 3.93 mil/mm3 (4.50-5.90); Red Cell Distribution Width 14.5 % (11.6-17.2); White Blood Count 5.3 th/mm3 (4.0-11.0)
[2018-06-05 17:30] LABS: Activated Partial Thrombo Time 28.1 sec (24.3-30.1); INR 1.1 Ratio; Prothrombin Time 10.7 sec (9.8-11.6)
[2018-06-05 17:43] LABS: Chloride 103 meq/L (98-107); Potassium 3.8 meq/L (3.5-5.1); Sodium 139 meq/L (136-145)
[2018-06-05 17:46] LABS: Calcium 8.6 mg/dL (8.5-10.1)
[2018-06-05 17:47] LABS: Albumin 3.4 g/dL (3.4-5.0); Anion Gap 5 meq/L (5-15); Blood Urea Nitrogen 31 mg/dL (7-18); Carbon Dioxide 31.2 meq/L (21.0-32.0); Glucose,Random 98 mg/dL (74-106)
--- NOTE | 2018-06-05 17:48 | XR ---
EXAM DATE: 06/05/2018 5:40 PM EDT AGE/SEX: 73 years / Male INDICATIONS: Short of breath. CLINICAL DATA: This is the patient's initial encounter. Patient reports that signs and symptoms have been present for 1 day and indicates a pain score of 5/10. MEDICAL/SURGICAL HISTORY: . Aneurysm, abdominal. Aneurysm, intracranial. Hypercholesterolemia. Seizures. Hypertension. Substance use. . Brain clips. Hernia repair. Blood transfusions COMPARISON: [facility], CHEST SINGLE AP, 03/14/2018. . FINDINGS: Mild patchy parenchymal infiltrate seen of both lungs, mostly mid and lower lungs. No large or conflu ent consolidation. No pleural effusion or pneumothorax. Heart size within normal limits. Thoracic aorta is tortuous. CONCLUSION: Patchy infiltrate of both lungs. Electronically signed by: Butch Aguilar MD 06/05/2018 5:47 PM EDT
[2018-06-05 17:50] LABS: Alanine Aminotransferase 27 U/L (12-78); Aspartate Aminotransferase 23 U/L (15-37); Glomerular Filtration Rate 59 mL/min (>89)
[2018-06-05 17:52] LABS: Total Protein 7.5 g/dL (6.4-8.2)
[2018-06-05 17:53] LABS: Alkaline Phosphatase 151 U/L (45-117)
[2018-06-05] MEDS ORDERED: Sod Chloride 0.9% Inj 1,000 ML IV.SIG ONE ×2 (18:06→19:07)
[2018-06-05] MEDS ORDERED: Azithromycin 250 MG Tablet PO ONE (18:06)
[2018-06-05] MEDS ORDERED: Acetaminophen 325 MG Tablet PO PRN (19:00)
[2018-06-05] MEDS: Temazepam 15 MG Capsule PO PRN (23:20)
[2018-06-05] MEDS: Phenytoin Sodium 100 MG Capsule PO SCH (23:20)
[2018-06-06] MEDS: Phenytoin Sodium 100 MG Capsule PO SCH ×3 (05:59→21:59)
[2018-06-06 06:44] LABS: Baso % (Auto) 0.4 % (0.0-2.0); Eos # (Auto) 0.1 th/mm3 (0.0-0.4); Eos % (Auto) 1.5 % (0.0-4.0); Hematocrit 32.4 % (39.0-51.0); Hemoglobin 10.4 gm/dL (13.0-17.0); Lymph # (Auto) 1.2 th/mm3 (1.0-4.8); Mean Corpuscular HGB Conc 32.1 % (32.0-36.0); Mean Corpuscular Hemoglobin 29.3 pg (27.0-34.0); Mean Corpuscular Volume 91.3 fL (80.0-100.0); Mean Platelet Volume 7.4 fL (7.0-11.0); Mono # (Auto) 0.4 th/mm3 (0.0-0.9); Neut # (Auto) 3.6 th/mm3 (1.8-7.7); Neut % (Auto) 68.1 % (16.0-70.0); Platelet Count 246 th/mm3 (150-450); Red Blood Count 3.55 mil/mm3 (4.50-5.90); White Blood Count 5.3 th/mm3 (4.0-11.0)
[2018-06-06 06:50] LABS: Potassium 3.7 meq/L (3.5-5.1)
[2018-06-06 06:53] LABS: Calcium 8.3 mg/dL (8.5-10.1); Carbon Dioxide 31.8 meq/L (21.0-32.0)
--- NOTE | 2018-06-06 09:31 | P.HP ---
History of Present Illness Primary Care Physician: No Primary Care Physician Chief Complaint: Shortness of breath History of Present Illness: This is a pleasant 73-year-old male patient with a known medical history of non- Hodgkin's lymphoma, COPD on home supplemental O2 who presented to the ED with complaints of shortness of breath 10 days. He does state that the shortness of breath began only during exertion now states that he has been short of breath throughout most of the day even at rest. Patient also admits to increasing fatigue over the course of the past few weeks. The [place] manages his COPD, he does have chronic respiratory failure with need for supplemental O2 at home, baseline is 3 L nasal cannula. Patient denies any recent fever, chills, cough, abdominal pain, nausea, vomiting, diarrhea or dysuria. Patient denies any recent antibiotic or steroid use. After review of records patient was admitted around this time last year for pneumonia. Patient's PCP did place him on an inhaler recently for management of his COPD, although does not remember the name. Patient does live at home alone. He denies any current tobacco abuse. - Diagnosis (1) Bilateral pneumonia (2) COPD (chronic obstructive pulmonary disease) (3) Acute and chronic respiratory failure (4) Hypertension Review of Systems All other systems reviewed negative except as stated in HPI PMFSH - History History Provided By: Patient - Medical History Medical History: Medical History (Last Updated 06/06/18 @ 14:01 by Chayo Caputo) Abdominal aneurysm Brain aneurysm COPD (chronic obstructive pulmonary disease) Insomnia Lupus Seizures - Family History Family History: Family History (Last Updated 06/06/18 @ 14:01 by Chayo Caputo) Other No pertinent family history - Tobacco History Second Hand Smoke Exposure: No Tobacco Use In Past 30 Days: No Smoking Status: Never smoker - Alcohol History How Often Do You Have a Drink Containing Alcohol: Never - Substance Use History Substance History: Active Abuse - Substance Use Type Marijuana Status: Active Route Used: Inhalation - Immunization History Tetanus Immunization: <5 Years Hx Influenza Vaccine This Season: Yes Medications and Allergies Active Medications: Active Medications Acetaminophen (Tylenol) 650 mg PO Q4H PRN PRN Reason: Temp > 100.4 Atenolol (Tenormin) 25 mg PO DAILY MARLENE Atorvastatin Calcium (Lipitor) 20 mg PO HS MARLENE Last Admin: 06/05/18 23:20 Dose: 20 mg Hydrochlorothiazide (Hydrodiuril) 25 mg PO DAILY MARLENE Lactulose (Lactulose Liq) 30 ml PO DAILY PRN PRN Reason: SEVERE CONSITIPATION Ondansetron HCl (Zofran Inj) 4 mg IV.PUSH Q6H PRN PRN Reason: NAUSEA OR VOMITING Phenytoin Sodium (Dilantin) 100 mg PO Q8H MARLENE Last Admin: 06/06/18 05:59 Dose: 100 mg Temazepam (Restoril) 15 mg PO HS PRN PRN Reason: INSOMNIA Last Admin: 06/05/18 23:20 Dose: 15 mg Allergies Allergy/AdvReac Type Severity Reaction Status Date / Time No Known Allergies Unknown Uncoded 03/14/18 12:16 Home Medications Medication Instructions Recorded Confirmed Type RX: atenolol 25 mg PO DAILY 06/05/18 06/05/18 History RX: hydrochlorothiazide 25 mg PO DAILY 06/05/18 06/05/18 History RX: simvastatin 40 mg PO QPM 06/05/18 06/05/18 History phenytoin sodium extended 100 mg PO TID 06/05/18 06/05/18 History [Dilantin Extended] Exam Vital signs: Vital Signs 06/05/18 16:30 06/05/18 16:34 06/05/18 18:38 Temperature 98.9 F Pulse Rate 118 H 120 H 134 H Respiratory Rate 24 20 18 Blood Pressure 110/58 L 105/84 118/77 Pulse Oximetry 92 L 98 97 06/05/18 19:01 06/05/18 20:44 06/06/18 00:00 Temperature 97.8 F Pulse Rate 133 H 124 H 93 H Respiratory Rate 22 20 18 Blood Pressure 128/70 103/68 109/78 Pulse Oximetry 94 L 94 L 95 Intake & Output 06/05/18 06/06/18 06/06/18 18:59 06:59 18:59 Intake Total 2099 Output Total 250 / 250 Balance 1850 / 1850 Weight 65 kg 67.2 kg Intake: IV 2099 NS Inj 1,000 ML @ Wide Open IV. 1999 SIG BOLUS ONE Rx#:[id number] Rocephin Inj 1,000 MG In NS Inj 100 / 100 100 ML @ 200 mls/hr IV.SIG ONCE ONE Rx#:[id number] Output: Urine 250 / 250 Other: Weight On Admission 67.2 kg Narrative: GENERAL: Well-developed, elderly male patient in NAD. On supplemental O2 SKIN: Warm and dry. No rash. HEAD: Normocephalic. Atraumatic. EYES: Pupils equal and round. No scleral icterus. No injection or drainage. ENT: No nasal bleeding or discharge. Mucous membranes pink and moist. NECK: Supple. Trachea midline. CARDIOVASCULAR: Regular rate and rhythm. S1, S2 noted. No murmur appreciated. RESPIRATORY: No accessory muscle use. Diminished breath sounds to posterior bases. Breath sounds equal bilaterally. GASTROINTESTINAL: Abdomen soft, non-tender, nondistended. Normoactive bowel sounds x4. MUSCULOSKELETAL: No obvious deformities. Extremities without clubbing, cyanosis , or edema. NEUROLOGICAL: Awake and alert. No obvious cranial nerve deficits. Motor grossly within normal limits. 5/5 muscle strength in bilateral upper and lower extremities. Normal speech. PSYCHIATRIC: Appropriate mood and affect; insight and judgment normal. Results - Labs CBC & Chem 7: 06/06/18 06:15 06/06/18 06:15 Labs: Laboratory Results - last 24 hr 06/05/18 06/05/18 06/05/18 17:05 17:05 17:05 CBC w Diff Auto diff final WBC 5.3 RBC 3.93 L Hgb 11.8 L Hct 34.9 L MCV 88.6 MCH 30.1 MCHC 33.9 RDW 14.5 Plt Count 289 MPV 7.7 Neut % (Auto) 54.7 Lymph % (Auto) 21.8 Reagan % (Auto) 7.9 Eos % (Auto) 12.3 H Baso % (Auto) 3.3 H Neut # (Auto) 2.8 Lymph # (Auto) 1.2 Reagan # (Auto) 0.4 Eos # (Auto) 0.7 H Baso # (Auto) 0.2 WBC Differential . Differential Comment . PT 10.7 INR 1.1 APTT 28.1 Sodium Potassium Chloride Carbon Dioxide Anion Gap BUN Creatinine Estimated GFR Random Glucose Lactic Acid Calcium Total Bilirubin AST ALT Alkaline Phosphatase Troponin I B-Natriuretic Peptide 85 Total Protein Albumin 06/05/18 06/05/18 06/06/18 17:05 17:33 06:15 CBC w Diff Auto diff final WBC 5.3 RBC 3.55 L Hgb 10.4 L Hct 32.4 L MCV 91.3 MCH 29.3 MCHC 32.1 RDW 14.0 Plt Count 246 MPV 7.4 Neut % (Auto) 68.1 Lymph % (Auto) 23.0 Reagan % (Auto) 7.0 Eos % (Auto) 1.5 Baso % (Auto) 0.4 Neut # (Auto) 3.6 Lymph # (Auto) 1.2 Reagan # (Auto) 0.4 Eos # (Auto) 0.1 Baso # (Auto) 0.0 WBC Differential . Differential Comment . PT INR APTT Sodium 139 Potassium 3.8 Chloride 103 Carbon Dioxide 31.2 Anion Gap 5 BUN 31 H Creatinine 1.20 Estimated GFR 59 L Random Glucose 98 Lactic Acid 0.6 Calcium 8.6 Total Bilirubin 0.3 AST 23 ALT 27 Alkaline Phosphatase 151 H Troponin I Less than 0.02 L B-Natriuretic Peptide Total Protein 7.5 Albumin 3.4 06/06/18 06:15 CBC w Diff WBC RBC Hgb Hct MCV MCH MCHC RDW Plt Count MPV Neut % (Auto) Lymph % (Auto) Reagan % (Auto) Eos % (Auto) Baso % (Auto) Neut # (Auto) Lymph # (Auto) Reagan # (Auto) Eos # (Auto) Baso # (Auto) WBC Differential Differential Comment PT INR APTT Sodium 142 Potassium 3.7 Chloride 107 Carbon Dioxide 31.8 Anion Gap 3 L BUN 26 H Creatinine 1.10 Estimated GFR 66 L Random Glucose 92 Lactic Acid Calcium 8.3 L Total Bilirubin AST ALT Alkaline Phosphatase Troponin I B-Natriuretic Peptide Total Protein Albumin - Imaging Impressions Chest X-Ray 06/05/18 16:47 CONCLUSION: Patchy infiltrate of both lungs. Caprini VTE Risk Assessment Caprini VTE Risk Assessment: Moderate/High Risk (score >= 2) Caprini Risk Assessment Model: Point Value = 1 Point Value = 2 Point Value = 3 Point Value = 5 Age 41-60 Minor surgery BMI > 25 kg/m2 Swollen legs Varicose veins or History of unexplained or recurrent spontaneous Oral contraceptives or hormone replacement Sepsis (< 1 month) Serious lung disease, including pneumonia (< 1 month) Abnormal pulmonary function Acute myocardial infarction Congestive heart failure (< 1 month) History of inflammatory bowel disease Medical patient at bed rest Age 61-74 Arthroscopic surgery Major open surgery (> 45 min) Laparoscopic surgery (> 45 min) Malignancy Confined to bed (> 72 hours) Immobilizing plaster cast Central venous access Age >= 75 History of VTE Family history of VTE Factor V Leiden Prothrombin [id number] Lupus anticoagulant Anticardiolipin antibodies Elevated serum homocysteine Heparin-induced thrombocytopenia Other congenital or acquired thrombophilia Stroke (< 1 month) Elective arthroplasty Hip, pelvis, or leg fracture Acute spinal cord injury (< 1 month) Prophylaxis Regimen: Total Risk Factor Score Risk Level Prophylaxis Regimen 0-1 Low Early ambulation 2 Moderate Order ONE of the following: *Sequential Compression Device (SCD) *Heparin 5000 units SQ BID 3-4 Higher Order ONE of the following medications: *Heparin 5000 units SQ TID *Enoxaparin/Lovenox 40 mg SQ daily (WT < 150 kg, CrCl > 30 mL/min) *Enoxaparin/Lovenox 30 mg SQ daily (WT < 150 kg, CrCl > 10-29 mL/min) *Enoxaparin/Lovenox 30 mg SQ BID (WT < 150 kg, CrCl > 30 mL/min) AND/OR *Sequential Compression Device (SCD) 5 or more Highest Order ONE of the following medications: *Heparin 5000 units SQ TID (Preferred with Epidurals) *Enoxaparin/Lovenox 40 mg SQ daily (WT < 150 kg, CrCl > 30 mL/min) *Enoxaparin/Lovenox 30 mg SQ daily (WT < 150 kg, CrCl > 10-29 mL/min) *Enoxaparin/Lovenox 30 mg SQ BID (WT < 150 kg, CrCl > 30 mL/min) AND *Sequential Compression Device (SCD) Assessment and Plan - Assessment (1) Bilateral pneumonia Code(s): J18.9 - Pneumonia, unspecified organism Status: Acute (2) COPD (chronic obstructive pulmonary disease) Code(s): J44.9 - Chronic obstructive pulmonary disease, unspecified Status: Acute (3) Acute and chronic respiratory failure Code(s): J96.20 - Acute and chronic respiratory failure, unspecified whether with hypoxia or hypercapnia Status: Acute (4) Hypertension Code(s): I10 - Essential (primary) hypertension Status: Acute - Plan This is a pleasant 73-year-old male patient with complaints of shortness of breath 10 days: Community-acquired bilateral pneumonia History of COPD with chronic respiratory failure on home O2 -Chest x-ray reviewed upon presentation showing patchy infiltrates of both lungs. -Patient was given IV ceftriaxone as well as p.o. azithromycin in ED. Will continue. Blood cultures drawn and negative to date. Continue to follow. -One-time dose of methylprednisone 125 mg IV in ED. Patient placed on scheduled IV steroids. Taper as tolerated. -Continue supplemental O2, patient uses 3 L nasal cannula at baseline at home. Currently on 3 L nasal cannula with saturations adequate. -Duo nebs scheduled and as needed for wheezing/shortness of breath. -CBC and BMP reviewed, essentially unremarkable. -Supportive care. Will continue to monitor for improvement. Hypertension, chronic: We will continue home medications. Monitor blood pressure trends. Hyperlipidemia, chronic: We will continue home medications. DVT prophylaxis: SCDs. Heparin. Discharge Planning: Await for clinical improvement.
[2018-06-06] MEDS: hydroCHLOROthiazide 25 MG Tablet PO SCH (10:03)
[2018-06-06] MEDS: Atenolol 25 MG Tablet PO SCH (10:03)
[2018-06-06] MEDS: Azithromycin 250 MG Tablet PO SCH (10:59)
[2018-06-06] MEDS: MethylPREDNISolone Sod Succinate Inj 40 MG/ML Vial IV.PUSH SCH ×3 (10:59→21:59)
--- NOTE | 2018-06-06 15:17 | ECG ---
Date Performed: 06/05/2018 Time Performed: 17:53:55 PTAGE: 73 years EKG: ATRIAL FLUTTER/TACHYCARDIA WITH RAPID VENTRICULAR RESPONSE MARKED LEFT AXIS DEVIATION INCOM PLETE RIGHT BUNDLE BRANCH BLOCK MODERATE ST DEPRESSION ABNORMAL ECG NO PREVIOUS TRACING DOCTOR: Terrance Arroyo Interpretating Date/Time 06/06/2018 15:15:12
--- NOTE | 2018-06-06 15:20 | ECG ---
Date Performed: 06/05/2018 Time Performed: 19:03:12 PTAGE: 73 years EKG: Supraventricular tachycardia, consider atrial flutter MARKED LEFT AXIS DEVIATION INCOMPLETE RIGHT BUNDLE BRANCH BLOCK SEPTAL MYOCARDIAL INFARCTION ABNORMAL ECG PREVIOUS TRACING : 06/05/2018 17.53 DOCTOR: Terrance Arroyo Interpretating Date/Time 06/06/2018 15:20:10
[2018-06-06] MEDS: Temazepam 15 MG Capsule PO PRN (21:59)
[2018-06-06] MEDS: Heparin - SQ 10,000 UNITS/ML Vial SQ SCH (21:59)
[2018-06-07] MEDS: MethylPREDNISolone Sod Succinate Inj 40 MG/ML Vial IV.PUSH SCH ×4 (02:49→16:45)
[2018-06-07] MEDS: Phenytoin Sodium 100 MG Capsule PO SCH ×3 (05:20→16:41)
[2018-06-07] MEDS: Azithromycin 250 MG Tablet PO SCH (09:59)
[2018-06-07] MEDS: hydroCHLOROthiazide 25 MG Tablet PO SCH (09:59)
[2018-06-07] MEDS: Atenolol 25 MG Tablet PO SCH (09:59)
[2018-06-07] MEDS: Heparin - SQ 10,000 UNITS/ML Vial SQ SCH (10:00)
--- NOTE | 2018-06-07 11:31 | P.PN ---
Subjective Interval history: 73-year-old male who is seen and examined today for follow-up on pneumonia, chronic hypoxic respiratory failure. Patient states that he is doing much better. He is very eager to go home. Wants to be discharged. States that no longer expressing any shortness of breath, dyspnea. Vital signs are stable, patient remains afebrile. Physical Exam Vital signs: Vital Signs 06/06/18 12:00 06/06/18 16:00 06/06/18 19:20 Temperature 98.1 F 98.9 F Pulse Rate 116 H 117 H 118 H Respiratory Rate 20 20 18 Blood Pressure 108/75 134/84 Pulse Oximetry 93 L 96 96 06/06/18 20:00 06/07/18 00:00 06/07/18 07:42 Temperature 96.3 F L 97.4 F L Pulse Rate 117 H 114 H 118 H Respiratory Rate 18 18 16 Blood Pressure 107/73 115/78 Pulse Oximetry 93 L 97 94 L 06/07/18 08:00 Temperature 96.8 F L Pulse Rate 105 H Respiratory Rate 17 Blood Pressure 112/75 Pulse Oximetry 96 Intake & Output 06/06/18 06/07/18 06/07/18 18:59 06:59 18:59 Intake Total 1320 / 1320 240 / 240 Output Total 250 / 250 Balance 1320 / 1320 -10 10 Weight 67.4 kg Intake: IV 100 / 100 Rocephin Inj 1,000 MG In NS Inj 100 / 100 100 ML @ 200 mls/hr IV.SIG Q24H MARLENE Rx#:[id number] Oral 1220 / 1220 240 / 240 Output: Urine 250 / 250 Other: # Voids 5 Date of Last Bowel Movement 06/06/18 06/06/18 # Bowel Movements 1 Narrative: GENERAL: Well-developed, well-nourished, in no acute distress. alert and orientated HEENT: Head is normocephalic without any lesions or masses noted. Facial features are symmetric. Eyes: Extraocular muscles are intact. Conjunctivae were clear. NECK: Supple without any masses. Trachea midline no deviation. No JVD, CARDIAC: Regular rhythm, regular rate. S1/S2 are heard. No murmurs gallops or rubs. LUNGS: Diminished breath sounds noted throughout. No wheeze, rhonchi or rales. No use of accessory muscles on inspiration or expiration. ABDOMEN: Soft, nontender. Nondistended. Bowel sounds heard in all 4 quadrants. No organomegaly or masses. Negative rebound, negative guarding EXTREMITIES: No edema, pulses are equal bilaterally. No cyanosis or clubbing NEUROLOGY: Mood and affect appear appropriate. Cranial nerves II through XII grossly intact. Moving all extremities, speech is clear Results - Labs CBC & Chem 7: 06/06/18 06:15 06/06/18 06:15 Microbiology 06/05/18 17:05 Blood - Peripheral Aerobic Blood Culture - Preliminary No growth in 2 days 06/05/18 17:05 Blood - Peripheral Anaerobic Blood Culture - Preliminary No growth in 2 days 06/05/18 17:10 Blood - Peripheral Aerobic Blood Culture - Preliminary No growth in 2 days 06/05/18 17:10 Blood - Peripheral Anaerobic Blood Culture - Preliminary No growth in 2 days Assessment and Plan - Assessment (1) Bilateral pneumonia Code(s): J18.9 - Pneumonia, unspecified organism Status: Acute (2) COPD (chronic obstructive pulmonary disease) Code(s): J44.9 - Chronic obstructive pulmonary disease, unspecified Status: Acute (3) Acute and chronic respiratory failure Code(s): J96.20 - Acute and chronic respiratory failure, unspecified whether with hypoxia or hypercapnia Status: Acute (4) Hypertension Code(s): I10 - Essential (primary) hypertension Status: Acute - Plan Community-acquired bilateral pneumonia -Chest x-ray reviewed upon presentation showing patchy infiltrates of both lungs. -Continue IV ceftriaxone as well as p.o. azithromycin -Continue supplemental O2, patient uses 3 L nasal cannula at baseline at home. -Duo nebs scheduled and as needed for wheezing/shortness of breath. -Case management consulted to try to help arrange nebulizer machine for at home Chronic hypoxic respiratory failure with underlying COPD -Continue O2 sat mentation maintain O2 sats greater than 92% -Solu-Medrol IV, convert to p.o. prednisone -Discussed with patient that he will need to maintain his oxygen at home 24 hours a day for at least the next 7-10 days or until told by his primary doctor only to use at night and during exertion. Hypertension, chronic: -Blood pressure appears to be stable -Continue home medication Hyperlipidemia, chronic: -Continued home medications DVT prophylaxis: -Sequential compression devices -Subcutaneous heparin Discharge Planning: Discharge home in stable condition Activity: Ad johnny. Diet: Healthy heart diet Medication per medication reconciliation Follow-up with primary medical doctor in 1 week
== END 2018-06-07 17:03 | disposition home or self-care (01) ==
LOC: PHED 16:04 → INTOOBSV 18:55 → PHEDA 18:55 → PH3 21:06
PROVIDERS: ADMIT Hospitalist; ATTEND Hospitalist

== ENCOUNTER 2018-07-04 17:11 | Observation (INO) ==
[2018-07-04] MEDS ORDERED: MethylPREDNISolone Sod Succinate Inj 125 MG/2 ML Vial IV.PUSH ONE (18:02)
--- NOTE | 2018-07-04 18:13 | ED ---
HPI General Chief complaint: Respiratory Symptoms Stated complaint: Difficulty Breathing Time Seen by Provider: 07/04/18 19:13 Source: patient Mode of arrival: ambulatory Limitations: no limitations History of Present Illness HPI narrative: 73yo M with PMH of nonhodgkin's lymphoma, COPD on home O2 presents to the ED stating he thinks he has pneumonia again. Pt said he has been feeling sob but seems like it has been for a long time. Denies any worsening cough or chest pain. Denies any fever, n/v, abdominal pain, focal weakness or numbness. Pt took nebulizer treatment at home which helped. He was admitted for bilateral pneumonia in 06/06/18. Related Data Home Medications Medication Instructions Recorded Confirmed atenolol 25 mg PO DAILY 06/05/18 07/12/18 hydrochlorothiazide 25 mg PO DAILY 06/05/18 07/12/18 phenytoin sodium extended 100 mg PO TID 06/05/18 07/12/18 [Dilantin Extended] simvastatin 40 mg PO QPM 06/05/18 07/12/18 Previous Rx's Medication Instructions Recorded albuterol sulfate 2 puff INHALATION Q6H PRN #1 g 07/09/18 apixaban [Eliquis] 5 mg PO BID #60 tab 07/09/18 budesonide-formoterol [Symbicort] 2 puff INH BID #1 g 07/09/18 digoxin 250 mcg PO DAILY #30 tab 07/09/18 ipratropium-albuterol 1 amp NEB Q6HR WHILE AWAKE NEB #1 07/09/18 box albuterol sulfate 2.5 mg INHALATION Q6H #180 ml 07/12/18 Allergies Allergy/AdvReac Type Severity Reaction Status Date / Time No Known Allergies Allergy Verified 07/12/18 10:19 Review of Systems ROS: all other systems reviewed are negative [facility] Family History Family History Other Alzheimer disease Social History Social History Substance History: No History of Abuse Second Hand Smoke Exposure: No Smoking Status: Former smoker Tobacco Type: Cigarettes How Often Do You Have a Drink Containing Alcohol: Never Recent Travel in [facility] within the Last 8 Weeks: No Recent Out of Country Travel within the Last 8 Weeks: No Substance Abuse Detail Marijuana: Substance Use Status: Active Route Used Substance Abuse: Inhalation Substance Frequency: occ Reason for Use: Calm Down and Feels Good Immunization History Tetanus Immunization: <5 Years Hx Influenza Vaccine This Season: Unable to Assess Exam Narrative Exam Narrative: GENERAL: 73yo M in mild distress. SKIN: Focused skin assessment warm/dry. HEAD: Atraumatic. Normocephalic. EYES: Pupils equal and round. No scleral icterus. No injection or drainage. ENT: No nasal bleeding or discharge. Mucous membranes pink and moist. NECK: Trachea midline. No JVD. CARDIOVASCULAR: Tachycardic at 128bpm. No murmur appreciated. RESPIRATORY: No accessory muscle use. End expiratory wheezing bilaterally. GASTROINTESTINAL: Abdomen soft, non-tender, nondistended. Hepatic and splenic margins not palpable. MUSCULOSKELETAL: No obvious deformities. No clubbing. No cyanosis. +Trace bilateral lower extremity edema. NEUROLOGICAL: Awake and alert. No obvious cranial nerve deficits. Motor grossly within normal limits. Normal speech. PSYCHIATRIC: Appropriate mood and affect; insight and judgment normal. Course Initial Documented Vital Signs Temperature 97.9 F 07/04/18 17:18 Pulse Rate 113 H 07/04/18 17:18 Respiratory Rate 16 07/04/18 17:18 Blood Pressure 115/73 07/04/18 17:18 Pulse Oximetry 93 L 07/04/18 17:18 Last Documented Vital Signs Temperature 96.7 F L 07/09/18 04:00 Pulse Rate 125 H 07/09/18 07:10 Respiratory Rate 18 07/09/18 07:10 Blood Pressure 124/83 07/09/18 04:00 Pulse Oximetry 95 07/09/18 07:10 Sign Out Sign Out Data: Patient Sign Out occurred on 07/04/18 at 19:13. Patient's care was discussed, and care was transferred from Ginger Kessler DO to Otilio Manrique. Sign Out Comment: Sign out to next team to follow up labs and reevaluate patient after treatment. Last updated by Ginger Kessler DO at 07/04/18 19:06 Post-Handoff Eval: pt has COPD exacerbation and atrial flutter rapid needs admit to tele for further mangement lungs and cardiac admit to inpt Medical Decision Making MDM Narrative Medical decision making narrative: 73yo M with sob here because he thinks he has pneumonia again. Pt is tachycardic and labs were drawn. Pt given NS IVF, duonebs and methylprednisolone. Sign out to next team to follow up labs, CXR and reevaluate. Medical Screen Exam Complete: Yes Emergency Medical Condition: Yes Differential Diagnosis Differential Diagnosis: Pneumonia vs. COPD exacerbation vs. dehydration vs. electrolyte abnormality Lab Data Result diagrams: 07/05/18 07:00 07/09/18 06:20 Lab Results 07/04/18 07/04/18 07/04/18 Range/Units 18:40 18:40 18:40 CBC w Diff Auto diff final WBC 6.6 (4.0-11.0) th/mm3 RBC 4.12 L (4.50-5.90) mil/mm3 Hgb 12.6 L (13.0-17.0) gm/dL Hct 38.3 L (39.0-51.0) % MCV 93.0 (80.0-100.0) fL MCH 30.5 (27.0-34.0) pg MCHC 32.8 (32.0-36.0) % RDW 15.5 (11.6-17.2) % Plt Count 236 (150-450) th/mm3 MPV 8.0 (7.0-11.0) fL Neut % (Auto) 59.7 (16.0-70.0) % Lymph % (Auto) 19.4 (9.0-44.0) % Wilcox % (Auto) 6.2 (0.0-8.0) % Eos % (Auto) 11.8 H (0.0-4.0) % Baso % (Auto) 2.9 H (0.0-2.0) % Neut # (Auto) 3.9 (1.8-7.7) th/mm3 Lymph # (Auto) 1.3 (1.0-4.8) th/mm3 Wilcox # (Auto) 0.4 (0.0-0.9) th/mm3 Eos # (Auto) 0.8 H (0.0-0.4) th/mm3 Baso # (Auto) 0.2 (0.0-0.2) th/mm3 WBC Differential . Differential Comment . Sodium 142 (136-145) meq/L Potassium 5.2 H (3.5-5.1) meq/L Chloride 107 (98-107) meq/L Carbon Dioxide 26.6 (21.0-32.0) meq/L Anion Gap 8 (5-15) meq/L BUN 17 (7-18) mg/dL Creatinine 1.10 (0.60-1.30) mg/dL Estimated GFR 66 L (>89) mL/min Random Glucose 93 (74-106) mg/dL Calcium 8.7 (8.5-10.1) mg/dL Magnesium (1.5-2.5) mg/dL Total Bilirubin (0.2-1.0) mg/dL AST (15-37) U/L ALT (12-78) U/L Alkaline Phosphatase (45-117) U/L Troponin I Less than 0.02 L (0.02-0.05) ng/mL B-Natriuretic Peptide 67 (0-100) pg/mL Total Protein (6.4-8.2) g/dL Albumin (3.4-5.0) g/dL TSH (0.358-3.740) uIU/mL 07/05/18 07/05/18 07/05/18 Range/Units 04:09 07:00 07:00 CBC w Diff Auto diff final WBC 5.5 (4.0-11.0) th/mm3 RBC 3.68 L (4.50-5.90) mil/mm3 Hgb 11.6 L (13.0-17.0) gm/dL Hct 33.2 L (39.0-51.0) % MCV 90.3 (80.0-100.0) fL MCH 31.4 (27.0-34.0) pg MCHC 34.7 (32.0-36.0) % RDW 15.5 (11.6-17.2) % Plt Count 229 (150-450) th/mm3 MPV 7.9 (7.0-11.0) fL Neut % (Auto) 75.9 H (16.0-70.0) % Lymph % (Auto) 15.3 (9.0-44.0) % Wilcox % (Auto) 6.0 (0.0-8.0) % Eos % (Auto) 2.3 (0.0-4.0) % Baso % (Auto) 0.5 (0.0-2.0) % Neut # (Auto) 4.3 (1.8-7.7) th/mm3 Lymph # (Auto) 0.8 L (1.0-4.8) th/mm3 Wilcox # (Auto) 0.3 (0.0-0.9) th/mm3 Eos # (Auto) 0.1 (0.0-0.4) th/mm3 Baso # (Auto) 0.0 (0.0-0.2) th/mm3 WBC Differential . Differential Comment . Sodium 143 (136-145) meq/L Potassium 4.3 D (3.5-5.1) meq/L Chloride 110 H (98-107) meq/L Carbon Dioxide 26.2 (21.0-32.0) meq/L Anion Gap 7 (5-15) meq/L BUN 16 (7-18) mg/dL Creatinine 1.00 (0.60-1.30) mg/dL Estimated GFR 73 L (>89) mL/min Random Glucose 120 H (74-106) mg/dL Calcium 8.5 (8.5-10.1) mg/dL Magnesium (1.5-2.5) mg/dL Total Bilirubin 0.2 (0.2-1.0) mg/dL AST 27 (15-37) U/L ALT 31 (12-78) U/L Alkaline Phosphatase 131 H (45-117) U/L Troponin I Less than 0.02 L Less than 0.02 L (0.02-0.05) ng/mL B-Natriuretic Peptide (0-100) pg/mL Total Protein 6.9 (6.4-8.2) g/dL Albumin 3.2 L (3.4-5.0) g/dL TSH (0.358-3.740) uIU/mL 07/05/18 07/09/18 Range/Units 07:00 06:20 CBC w Diff WBC (4.0-11.0) th/mm3 RBC (4.50-5.90) mil/mm3 Hgb (13.0-17.0) gm/dL Hct (39.0-51.0) % MCV (80.0-100.0) fL MCH (27.0-34.0) pg MCHC (32.0-36.0) % RDW (11.6-17.2) % Plt Count (150-450) th/mm3 MPV (7.0-11.0) fL Neut % (Auto) (16.0-70.0) % Lymph % (Auto) (9.0-44.0) % Wilcox % (Auto) (0.0-8.0) % Eos % (Auto) (0.0-4.0) % Baso % (Auto) (0.0-2.0) % Neut # (Auto) (1.8-7.7) th/mm3 Lymph # (Auto) (1.0-4.8) th/mm3 Wilcox # (Auto) (0.0-0.9) th/mm3 Eos # (Auto) (0.0-0.4) th/mm3 Baso # (Auto) (0.0-0.2) th/mm3 WBC Differential Differential Comment Sodium 141 (136-145) meq/L Potassium 4.3 (3.5-5.1) meq/L Chloride 106 (98-107) meq/L Carbon Dioxide 26.5 (21.0-32.0) meq/L Anion Gap 9 (5-15) meq/L BUN 28 H (7-18) mg/dL Creatinine 1.20 (0.60-1.30) mg/dL Estimated GFR 59 L (>89) mL/min Random Glucose 152 H (74-106) mg/dL Calcium 8.6 (8.5-10.1) mg/dL Magnesium 1.1 L (1.5-2.5) mg/dL Total Bilirubin (0.2-1.0) mg/dL AST (15-37) U/L ALT (12-78) U/L Alkaline Phosphatase (45-117) U/L Troponin I (0.02-0.05) ng/mL B-Natriuretic Peptide (0-100) pg/mL Total Protein (6.4-8.2) g/dL Albumin (3.4-5.0) g/dL TSH 0.860 (0.358-3.740) uIU/mL Imaging Data Radiologist's impression: Chest X-Ray 07/04/18 18:02 CONCLUSION: No significant change compared to 06/05/2018. ECG Data EKG Prior to Arrival: No Attestation: I personally reviewed and interpreted this ECG as follows: Interpretation: Sinus tachycardia at 129bpm. LAD. No significant ST elevation or depression. Discharge Plan Discharge Disposition Patient Disposition: 30 Still Patient Discharge Condition Condition: Stable Discharge Order Discharge Orders: Discharge Order (Routine); Ordered 07/09/18 Ordered By: Rickey Angeles Discharge Details Anticipated Discharge Date: 07/09/18 Diagnosis: COPD exacerbation Physicians Team ED Provider: Otilio Manrique Primary Care Provider: [facility] Attending Provider: Rickey Angeles Other Providers: Chuck Hernandez Status ED Status: Left Department Discharge Information Discharge Date/Time: 07/05/18 07:55
--- NOTE | 2018-07-04 18:25 | XR ---
EXAM DATE: 07/04/2018 6:20 PM EDT AGE/SEX: 73 years / Male INDICATIONS: Shortness of breath, chest congestion for 3 days CLINICAL DATA: This is the patient's initial encounter. Patient reports that signs and symptoms have been present for 3 days and indicates a pain score of 0/10. MEDICAL/SURGICAL HISTORY: . Aneurysm, abdominal. Aneurysm, intracranial. Hypercholesterolemia. Seizures. Hypertension. None. COMPARISON: [facility], CHEST 1V SINGLE AP, 06/05/2018. . FINDINGS: Emphysematous changes are noted involving the upper lung alvarenga bilaterally. Scattered interstitial i nfiltrates are noted within the lower lung alvarenga and are stable. Bibasilar atelectasis and/or fibrot ic scarring is stable. The heart is stable in appearance. CONCLUSION: No significant change compared to 06/05/2018. Electronically signed by: Og Moody MD 07/04/2018 6:24 PM EDT
[2018-07-04] MEDS ORDERED: Sodium Chlor 0.9% Inj 500 ML IV.SIG SCH (19:00)
[2018-07-04 19:23] LABS: Baso # (Auto) 0.2 th/mm3 (0.0-0.2); Baso % (Auto) 2.9 % (0.0-2.0); Eos # (Auto) 0.8 th/mm3 (0.0-0.4); Eos % (Auto) 11.8 % (0.0-4.0); Hematocrit 38.3 % (39.0-51.0); Hemoglobin 12.6 gm/dL (13.0-17.0); Lymph # (Auto) 1.3 th/mm3 (1.0-4.8); Lymph % (Auto) 19.4 % (9.0-44.0); Mean Corpuscular HGB Conc 32.8 % (32.0-36.0); Mean Corpuscular Hemoglobin 30.5 pg (27.0-34.0); Mono # (Auto) 0.4 th/mm3 (0.0-0.9); Mono % (Auto) 6.2 % (0.0-8.0); Neut # (Auto) 3.9 th/mm3 (1.8-7.7); Neut % (Auto) 59.7 % (16.0-70.0); Platelet Count 236 th/mm3 (150-450); Red Blood Count 4.12 mil/mm3 (4.50-5.90); Red Cell Distribution Width 15.5 % (11.6-17.2); White Blood Count 6.6 th/mm3 (4.0-11.0)
[2018-07-04 19:24] LABS: Chloride 107 meq/L (98-107); Sodium 142 meq/L (136-145)
[2018-07-04 19:26] LABS: Calcium 8.7 mg/dL (8.5-10.1)
[2018-07-04 19:27] LABS: Anion Gap 8 meq/L (5-15); Blood Urea Nitrogen 17 mg/dL (7-18); Carbon Dioxide 26.6 meq/L (21.0-32.0); Glucose,Random 93 mg/dL (74-106)
[2018-07-04 19:30] LABS: Glomerular Filtration Rate 66 mL/min (>89)
[2018-07-04 19:44] LABS: Potassium 5.2 meq/L (3.5-5.1)
[2018-07-04] MEDS ORDERED: Atenolol 25 MG Tablet PO ONE ×2 (20:21→23:06)
[2018-07-04] MEDS ORDERED: Metoprolol Inj 5 MG/5 ML Vial IV.PUSH ONE ×2 (21:51→23:06)
[2018-07-05] MEDS ORDERED: Bisacodyl 10 MG Supp RECTAL PRN (04:04)
[2018-07-05] MEDS ORDERED: Acetaminophen 325 MG Tablet PO PRN (04:04)
[2018-07-05] MEDS: MethylPREDNISolone Sod Succinate Inj 40 MG/ML Vial IV.PUSH SCH ×3 (05:55→17:44)
[2018-07-05 07:41] LABS: Alanine Aminotransferase 31 U/L (12-78); Albumin 3.2 g/dL (3.4-5.0); Alkaline Phosphatase 131 U/L (45-117); Anion Gap 7 meq/L (5-15); Aspartate Aminotransferase 27 U/L (15-37); Blood Urea Nitrogen 16 mg/dL (7-18); Calcium 8.5 mg/dL (8.5-10.1); Carbon Dioxide 26.2 meq/L (21.0-32.0); Chloride 110 meq/L (98-107); Glomerular Filtration Rate 73 mL/min (>89); Glucose,Random 120 mg/dL (74-106); Potassium 4.3 meq/L (3.5-5.1); Sodium 143 meq/L (136-145); Total Protein 6.9 g/dL (6.4-8.2)
[2018-07-05 07:47] LABS: Baso % (Auto) 0.5 % (0.0-2.0); Eos # (Auto) 0.1 th/mm3 (0.0-0.4); Eos % (Auto) 2.3 % (0.0-4.0); Hematocrit 33.2 % (39.0-51.0); Hemoglobin 11.6 gm/dL (13.0-17.0); Lymph # (Auto) 0.8 th/mm3 (1.0-4.8); Lymph % (Auto) 15.3 % (9.0-44.0); Mean Corpuscular HGB Conc 34.7 % (32.0-36.0); Mean Corpuscular Hemoglobin 31.4 pg (27.0-34.0); Mean Corpuscular Volume 90.3 fL (80.0-100.0); Mean Platelet Volume 7.9 fL (7.0-11.0); Mono # (Auto) 0.3 th/mm3 (0.0-0.9); Neut # (Auto) 4.3 th/mm3 (1.8-7.7); Neut % (Auto) 75.9 % (16.0-70.0); Platelet Count 229 th/mm3 (150-450); Red Blood Count 3.68 mil/mm3 (4.50-5.90); Red Cell Distribution Width 15.5 % (11.6-17.2); White Blood Count 5.5 th/mm3 (4.0-11.0)
[2018-07-05] MEDS: Phenytoin Sodium 100 MG Capsule PO SCH ×3 (09:11→17:44)
[2018-07-05] MEDS: Senna/Docusate Sodium 8.6/50 MG Tablet PO SCH ×2 (09:11→21:10)
[2018-07-05] MEDS: Atenolol 25 MG Tablet PO SCH (09:11)
[2018-07-05] MEDS: guaiFENesin 600 MG ER Tablet PO SCH ×2 (09:11→21:10)
--- NOTE | 2018-07-05 10:53 | P.HPIM ---
History of Present Illness Primary Care Physician: [facility] Chief Complaint: Shortness of breath History of Present Illness: The patient is a 73 year old male with a past medical history significant for COPD who is presenting to the hospital with increasing shortness of breath. He said he was treated in the hospital last month for the same thing. He says he has been short-winded as a child and over the past few years he developed COPD. He is currently on 3L [place] home oxygen. He does not have a track layer. He uses a puffer and a nebulizer at home. He endorses clear mucous following nebulizer usage. He has been ambulating well and has been tolerating a diet. He denies any fevers. He says the last time he was in the hospital he was discharged with steroids and antibiotics. He still smokes marijuana, which he acknowledges causes breathing difficulties. Review of Systems All other systems reviewed negative except as stated in HPI PMFSH - History History Provided By: Patient - Medical History Medical History: Medical History (Last Reviewed 07/05/18 @ 10:42 by Arnaud Ayala DO) Brain aneurysm (Acute) Insomnia (Acute) Seizures (Acute) Abdominal aneurysm (Acute) COPD (chronic obstructive pulmonary disease) (Acute) Lupus (Acute) - Surgical History Surgical History: Surgical History (Last Reviewed 07/05/18 @ 10:42 by Arnaud Ayala DO) S/P aneurysm repair (Acute) H/O hernia repair (Acute) - Family History Family History: Family History (Last Updated 07/05/18 @ 10:42 by Arnaud Ayala DO) Other Alzheimer disease No pertinent family history - Tobacco History Second Hand Smoke Exposure: No Tobacco Use In Past 30 Days: Yes Smoking Status: Former smoker Tobacco Type: Cigarettes - Alcohol History How Often Do You Have a Drink Containing Alcohol: Never - Substance Use History Substance History: Past History - Substance Use Type Marijuana Status: Active Route Used: Inhalation Frequency: 2 x a week /marijana for medical reason with card Reason for Use: Calm Down - Travel History Recent Travel in the [place] Within the Last 8 Weeks: No Recent Travel Out of the Country Within the Last 8 Weeks: No - Immunization History Tetanus Immunization: <5 Years Hx Influenza Vaccine This Season: Unable to Assess Medications and Allergies Active Medications: Active Medications Acetaminophen (Tylenol) 650 mg PO Q4H PRN PRN Reason: Temp > 100.4 Al Hydroxide/Mg Hydroxide (Milk Of Magnesia Liq) 30 ml PO Q12H PRN PRN Reason: Mild Constipation Albuterol (Duoneb Neb (Prn)) 1 ampul NEB Q4HR NEB PRN PRN Reason: SOB/WHEEZING Atenolol (Tenormin) 25 mg PO DAILY [facility] Last Admin: 07/05/18 09:11 Dose: 25 mg Atorvastatin Calcium (Lipitor) 20 mg PO DAILY@1800 [facility] Bisacodyl (Dulcolax Supp) 10 mg RECTAL DAILY PRN PRN Reason: SEVERE CONSITIPATION Budesonide/Formoterol Fumarate (Symbicort 160/4.5 Mcg Inh) 2 puff INH BID [facility] Guaifenesin (Mucinex Er) 600 mg PO BID [facility] Last Admin: 07/05/18 09:11 Dose: 600 mg Sodium Chloride (Ns Inj) 500 mls @ 0 mls/hr IV.SIG BOLUS [facility] Last Infusion: 07/04/18 19:52 Dose: Infused Levofloxacin/Dextrose (Levaquin 750 Mg Premix Inj) 150 mls @ 100 mls/hr IV.SIG Q24H [facility] Lactulose (Lactulose Liq) 30 ml PO DAILY PRN PRN Reason: SEVERE CONSITIPATION Methylprednisolone Sodium Succinate (Solumedrol Inj) 40 mg IV.PUSH Q6H [facility] Last Admin: 07/05/18 05:55 Dose: 40 mg Ondansetron HCl (Zofran Inj) 4 mg IV.PUSH Q6H PRN PRN Reason: NAUSEA OR VOMITING Phenytoin Sodium (Dilantin) 100 mg PO TID [facility] Last Admin: 07/05/18 09:11 Dose: 100 mg Senna/Docusate Sodium (Malu-Colace) 1 tab PO BID [facility] Last Admin: 07/05/18 09:11 Dose: Not Given Sennosides (Senokot) 17.2 mg PO Q12H PRN PRN Reason: Moderate Constipation Allergies Allergy/AdvReac Type Severity Reaction Status Date / Time No Known Allergies Allergy Verified 07/05/18 00:28 Home Medications Medication Instructions Recorded Confirmed Type atenolol 25 mg PO DAILY 06/05/18 07/04/18 History hydrochlorothiazide 25 mg PO DAILY 06/05/18 07/04/18 History phenytoin sodium extended 100 mg PO TID 06/05/18 07/04/18 History [Dilantin Extended] simvastatin 40 mg PO QPM 06/05/18 07/04/18 History Exam Vital signs: Vital Signs 07/04/18 17:18 07/04/18 17:44 07/04/18 18:12 Temperature 97.9 F Pulse Rate 113 H 129 H 127 H Respiratory Rate 16 18 19 Blood Pressure 115/73 118/77 Pulse Oximetry 93 L 95 07/04/18 18:40 07/04/18 19:07 07/04/18 21:06 Temperature Pulse Rate 133 H 129 H 125 H Respiratory Rate 20 22 Blood Pressure 134/83 132/92 H Pulse Oximetry 98 98 97 07/04/18 22:05 07/04/18 23:01 07/04/18 23:30 Temperature Pulse Rate 118 H 122 H 119 H Respiratory Rate 18 18 20 Blood Pressure 109/82 116/87 119/84 Pulse Oximetry 96 97 98 07/05/18 00:40 07/05/18 02:12 07/05/18 04:06 Temperature Pulse Rate 120 H 118 H 119 H Respiratory Rate 18 16 16 Blood Pressure 122/68 118/77 Pulse Oximetry 98 98 98 07/05/18 06:10 07/05/18 06:59 07/05/18 08:17 Temperature 97.7 F 98 F Pulse Rate 112 H 120 H 118 H Respiratory Rate 16 20 20 Blood Pressure 118/89 124/92 H 131/93 H Pulse Oximetry 99 95 07/05/18 10:18 Temperature Pulse Rate Respiratory Rate Blood Pressure Pulse Oximetry 98 Intake & Output 07/04/18 07/05/18 07/05/18 18:59 06:59 18:59 Intake Total 650 / 650 Balance 650 / 650 Weight 67 kg 65 kg Intake: IV 500 / 500 NS Inj 500 ML @ Wide Open IV. 500 / 500 SIG BOLUS [facility]LEN[facility] Rx#:[id number] Oral 150 / 150 Other: Weight On Admission 65 kg Narrative: GENERAL: No distress. SKIN: Focused skin assessment warm/dry. HEAD: Atraumatic. Normocephalic. EYES: Pupils equal and round. No scleral icterus. No injection or drainage. ENT: No nasal bleeding or discharge. Mucous membranes pink and moist. NECK: Trachea midline. No JVD. CARDIOVASCULAR: Tachycardic. No murmur appreciated. RESPIRATORY: Decreased air movement. GASTROINTESTINAL: Abdomen soft, non-tender, nondistended. Hepatic and splenic margins not palpable. MUSCULOSKELETAL: No obvious deformities. No clubbing. No cyanosis. TR lower extremity edema. NEUROLOGICAL: Awake and alert. No obvious cranial nerve deficits. Motor grossly within normal limits. Normal speech. Results - Labs CBC & Chem 7: 07/05/18 07:00 07/05/18 07:00 Labs: Short CBC 07/04/18 07/05/18 Range/Units 18:40 07:00 WBC 6.6 5.5 (4.0-11.0) th/mm3 Hgb 12.6 L 11.6 L (13.0-17.0) gm/dL Hct 38.3 L 33.2 L (39.0-51.0) % Plt Count 236 229 (150-450) th/mm3 BMP 07/04/18 07/05/18 18:40 07:00 Sodium 142 143 Potassium 5.2 H 4.3 D Chloride 107 110 H Carbon Dioxide 26.6 26.2 BUN 17 16 Creatinine 1.10 1.00 Calcium 8.7 8.5 Cardiac Enzymes 07/04/18 07/05/18 07/05/18 Range/Units 18:40 04:09 07:00 Troponin I Less than 0.02 L Less than 0.02 L Less than 0.02 L (0.02-0.05) ng/mL Liver Function 07/05/18 Range/Units 07:00 Total Bilirubin 0.2 (0.2-1.0) mg/dL AST 27 (15-37) U/L ALT 31 (12-78) U/L Alkaline Phosphatase 131 H (45-117) U/L Albumin 3.2 L (3.4-5.0) g/dL - Imaging Impressions Chest X-Ray 07/04/18 18:02 CONCLUSION: No significant change compared to 06/05/2018. Caprini VTE Risk Assessment Caprini VTE Risk Assessment: Moderate/High Risk (score >= 2) Caprini Risk Assessment Model: Point Value = 1 Point Value = 2 Point Value = 3 Point Value = 5 Age 41-60 Minor surgery BMI > 25 kg/m2 Swollen legs Varicose veins or History of unexplained or recurrent spontaneous Oral contraceptives or hormone replacement Sepsis (< 1 month) Serious lung disease, including pneumonia (< 1 month) Abnormal pulmonary function Acute myocardial infarction Congestive heart failure (< 1 month) History of inflammatory bowel disease Medical patient at bed rest Age 61-74 Arthroscopic surgery Major open surgery (> 45 min) Laparoscopic surgery (> 45 min) Malignancy Confined to bed (> 72 hours) Immobilizing plaster cast Central venous access Age >= 75 History of VTE Family history of VTE Factor V Leiden Prothrombin [id number] Lupus anticoagulant Anticardiolipin antibodies Elevated serum homocysteine Heparin-induced thrombocytopenia Other congenital or acquired thrombophilia Stroke (< 1 month) Elective arthroplasty Hip, pelvis, or leg fracture Acute spinal cord injury (< 1 month) Prophylaxis Regimen: Total Risk Factor Score Risk Level Prophylaxis Regimen 0-1 Low Early ambulation 2 Moderate Order ONE of the following: *Sequential Compression Device (SCD) *Heparin 5000 units SQ BID 3-4 Higher Order ONE of the following medications: *Heparin 5000 units SQ TID *Enoxaparin/Lovenox 40 mg SQ daily (WT < 150 kg, CrCl > 30 mL/min) *Enoxaparin/Lovenox 30 mg SQ daily (WT < 150 kg, CrCl > 10-29 mL/min) *Enoxaparin/Lovenox 30 mg SQ BID (WT < 150 kg, CrCl > 30 mL/min) AND/OR *Sequential Compression Device (SCD) 5 or more Highest Order ONE of the following medications: *Heparin 5000 units SQ TID (Preferred with Epidurals) *Enoxaparin/Lovenox 40 mg SQ daily (WT < 150 kg, CrCl > 30 mL/min) *Enoxaparin/Lovenox 30 mg SQ daily (WT < 150 kg, CrCl > 10-29 mL/min) *Enoxaparin/Lovenox 30 mg SQ BID (WT < 150 kg, CrCl > 30 mL/min) AND *Sequential Compression Device (SCD) Assessment and Plan - Plan COPD exacerbation The pt has COPD and is on home oxygen. He presents with increasing shortness of breath. CXR is stable. -continue nebs, steroids and antibiotics. -Symbicort added. -encourage ambulation. -incentive spirometry. -ADAT. Tachycardia Likely s/t above. EKG similar to prior. Trops flat. -check TSH. -repeat EKG in AM. -telemetry. PPx: SCDs Code Status: DNR H&P: Quality - VTE Deep Vein Thrombosis/Pulmonary Embolism Present on Admission: No
[2018-07-05] MEDS: Budesonide-Formoterol 160/4.5 MCG 6 GM Inhaler INH SCH ×2 (12:24→21:10)
[2018-07-06] MEDS: MethylPREDNISolone Sod Succinate Inj 40 MG/ML Vial IV.PUSH SCH ×3 (02:04→23:39)
[2018-07-06] MEDS: Atenolol 25 MG Tablet PO SCH (08:07)
[2018-07-06] MEDS: guaiFENesin 600 MG ER Tablet PO SCH ×2 (08:07→23:39)
[2018-07-06] MEDS: Phenytoin Sodium 100 MG Capsule PO SCH ×3 (08:07→18:00)
[2018-07-06] MEDS: Budesonide-Formoterol 160/4.5 MCG 6 GM Inhaler INH SCH ×2 (08:07→23:39)
[2018-07-06] MEDS: Senna/Docusate Sodium 8.6/50 MG Tablet PO SCH ×2 (08:07→23:39)
--- NOTE | 2018-07-06 10:28 | P.PNIM ---
Subjective Interval history: The patient was feeling better. He said that he was told his heart has been fast but he does not have a heart doctor. He has been ambulating. No acute concerns at this time. Physical Exam Vital signs: Vital Signs 07/05/18 12:09 07/05/18 13:38 07/05/18 16:00 Temperature 97.6 F 96.6 F L Pulse Rate 110 H 121 H 112 H Respiratory Rate 20 20 20 Blood Pressure 128/86 112/70 Pulse Oximetry 95 97 07/05/18 19:36 07/05/18 20:00 07/06/18 00:00 Temperature 96.7 F L 97 F L Pulse Rate 124 H 121 H 121 H Respiratory Rate 18 18 18 Blood Pressure 112/77 96/63 L Pulse Oximetry 97 91 L 97 07/06/18 07:22 07/06/18 07:26 07/06/18 07:30 Temperature 97.7 F Pulse Rate 124 H 122 H Respiratory Rate 20 20 Blood Pressure 120/83 Pulse Oximetry 95 95 07/06/18 08:00 Temperature Pulse Rate 124 H Respiratory Rate Blood Pressure Pulse Oximetry Intake & Output 07/05/18 07/06/18 07/06/18 18:59 06:59 18:59 Intake Total 1670 / 1670 120 / 120 Output Total 200 / 200 Balance 1670 / 1670 -80 / -80 Weight 65 kg 65.1 kg Intake: IV 150 / 150 Levaquin 750 mg Premix Inj 150 150 / 150 ML @ 100 mls/hr IV.SIG Q24H [facility] Rx#:[id number] Oral 1520 / 1520 120 / 120 Output: Urine 200 / 200 Other: # Voids 1 # Bowel Movements 1 Weight On Admission 65 kg Narrative: GENERAL: No distress. SKIN: Focused skin assessment warm/dry. HEAD: Atraumatic. Normocephalic. EYES: Pupils equal and round. No scleral icterus. No injection or drainage. ENT: No nasal bleeding or discharge. Mucous membranes pink and moist. NECK: Trachea midline. No JVD. CARDIOVASCULAR: Tachycardic. No murmur appreciated. RESPIRATORY: Clear to auscultation. GASTROINTESTINAL: Abdomen soft, non-tender, nondistended. Hepatic and splenic margins not palpable. MUSCULOSKELETAL: No obvious deformities. No clubbing. No cyanosis. TR lower extremity edema. NEUROLOGICAL: Awake and alert. No obvious cranial nerve deficits. Motor grossly within normal limits. Normal speech. Results - Labs CBC & Chem 7: 07/05/18 07:00 07/05/18 07:00 Laboratory Results - last 24 hr 07/05/18 07:00 TSH 0.860 Microbiology 07/04/18 18:45 Blood - Peripheral Aerobic Blood Culture - Preliminary No growth in 1 day 07/04/18 18:45 Blood - Peripheral Anaerobic Blood Culture - Preliminary No growth in 1 day 07/04/18 18:40 Blood - Peripheral Aerobic Blood Culture - Preliminary No growth in 1 day 07/04/18 18:40 Blood - Peripheral Anaerobic Blood Culture - Preliminary No growth in 1 day Assessment and Plan - Plan COPD exacerbation The pt has COPD and is on home oxygen. He presents with increasing shortness of breath. CXR is stable. -continue nebs, steroids and antibiotics. -Symbicort added. -encourage ambulation. -incentive spirometry. -ADAT. Tachycardia Likely s/t above. EKG similar to prior, suggesting A flutter. Trops flat. TSH WNL. -telemetry. -check an echo. -cardiology consult for persistent tachycardia. -change atenolol to Cardizem 30 q6h. AAA The pt says he is trying to get surgery scheduled. -[facility] PPx: SCDs
[2018-07-06] MEDS ORDERED: dilTIAZem 30 MG Tablet PO SCH (10:30)
[2018-07-06] MEDS ORDERED: Digoxin Inj 500 MCG/2 ML Ampul IV.PUSH ONE (11:45)
[2018-07-06] MEDS: dilTIAZem 60 MG Tablet PO SCH ×3 (12:35→23:40)
--- NOTE | 2018-07-06 13:13 | ECG ---
Date Performed: 07/06/2018 Time Performed: 06:11:22 PTAGE: 73 years EKG: ATRIAL FLUTTER/TACHYCARDIA WITH RAPID VENTRICULAR RESPONSE MARKED LEFT AXIS DEVIATION MODER ATE ST DEPRESSION ABNORMAL ECG PREVIOUS TRACING : 07/04/2018 18.32 Since the previous tracing, no significant change noted DOCTOR: Aburey Shoemaker Interpretating Date/Time 07/06/2018 13:11:39
--- NOTE | 2018-07-06 13:14 | ECG ---
Date Performed: 07/04/2018 Time Performed: 18:32:11 PTAGE: 73 years EKG: ATRIAL FLUTTER/TACHYCARDIA WITH RAPID VENTRICULAR RESPONSE MARKED LEFT AXIS DEVIATION MODER ATE ST DEPRESSION ABNORMAL ECG PREVIOUS TRACING : 06/05/2018 19.03 Since the previous tracing, no significant change noted DOCTOR: Aubrey Shoemaker Interpretating Date/Time 07/06/2018 13:11:50
--- NOTE | 2018-07-06 17:17 | ECHRPT ---
Indication: a-fib CONCLUSIONS The left ventricular systolic function is normal with an estimated ejection fraction in the range of 60-65%. Wall thickness is normal. Normal left ventricular size. No regional wall motion abnormalities are present. The right ventricle is mildly dilated. The right atrial size is [id number] dilated. Mild mitral valve regurgitation. Aortic valve sclerosis is present. Trace aortic valve regurgitation. The inferior vena cava is dilated. There is less than 50% respiratory change in dimension of the inferior vena cava (abnormal). BP: / HR: Rhythm: Atrial fibrillation MEASUREMENTS (Male / Female) Normal Values Technical Quality:Fair 2D ECHO LV Diastolic Diameter PLAX 4.0 cm 4.2 - 5.9 / 3.9 - 5.3 cm LV Systolic Diameter PLAX 3.3 cm IVS Diastolic Thickness 1.0 cm 0.6 - 1.0 / 0.6 - 0.9 cm LVPW Diastolic Thickness 1.0 cm 0.6 - 1.0 / 0.6 - 0.9 cm LV Relative Wall Thickness 0.5 RV Internal Dim ED PLAX 2.6 cm LVOT Diameter 1.6 cm LA Systolic Diameter LX 3.2 cm 3.0 - 4.0 / 2.7 - 3.8 cm LV Ejection Fraction MOD 4C 42.4 % LV Ejection Fraction 4C AL 44.0 % M-MODE Aortic Root Diameter MM 2.4 cm LA Systolic Diameter MM 2.6 cm LA Ao Ratio MM 1.1 AV Cusp Separation MM 1.6 cm DOPPLER AV Peak Velocity 107.0 cm/s AV Peak Gradient 4.6 mmHg AI Peak Velocity 265.0 cm/s AI Peak Gradient 28.1 mmHg AI Pressure Half Time 2346.0 ms LVOT Peak Velocity 72.6 cm/s LVOT Peak Gradient 2.1 mmHg AV Area Cont Eq pk 1.4 cm MV Area PHT 8.1 cm LV E' Lateral Velocity 14.4 cm/s LV E' Septal Velocity 11.3 cm/s TR Peak Velocity 301.0 cm/s TR Peak Gradient 36.2 mmHg Right Atrial Pressure 10.0 mmHg Pulmonary Artery Systolic Pressu 46.2 mmHg Right Ventricular Systolic Press 46.2 mmHg PV Peak Velocity 48.9 cm/s PV Peak Gradient 1.0 mmHg FINDINGS LEFT VENTRICLE The left ventricular systolic function is normal with an estimated ejection fraction in the range of 60-65%. Wall thickness is normal. Normal left ventricular size. No regional wall motion abnormalities are present. RIGHT VENTRICLE The right ventricle is mildly dilated. LEFT ATRIUM The left atrial size is normal. RIGHT ATRIUM The right atrial size is [id number] dilated. ATRIAL SEPTUM Normal atrial septal thickness without atrial level shunting by limited color doppler interrogation. AORTA The aortic root and proximal ascending aorta are normal in size on limited imaging. MITRAL VALVE Structurally normal mitral valve. Mild mitral valve regurgitation. AORTIC VALVE Trileaflet aortic valve. Aortic valve sclerosis is present. Trace aortic valve regurgitation. TRICUSPID VALVE Structurally normal tricuspid valve. No tricuspid valve stenosis or regurgitation. PULMONARY VALVE No pulmonary valve regurgitation or stenosis. VESSELS The inferior vena cava is dilated. There is less than 50% respiratory change in dimension of the inferior vena cava (abnormal). PERICARDIUM No pericardial effusion. Chuck Hernandez MD, FACC (Electronically Signed) Final Date:06 July 2018 17:16
[2018-07-06] MEDS ORDERED: Melatonin 5 MG Tablet PO ONE (23:25)
--- NOTE | 2018-07-07 07:50 | P.CONCA ---
History of Present Illness Primary Care Provider: [facility] Chief Complaint: Shortness of breath History of Present Illness: 73-year-old male with past medical history of COPD on home O2, HTN who presented for worsening shortness of breath. Patient states he felt like he was getting pneumonia again, has been given antibiotics for treatment and reports his breathing has improved back to baseline. He was found to have atrial flutter, rate around 130. He denies any heart racing, fluttering, passing out, orthopnea, ankle swelling. Echocardiogram showed EF 6065%, with normal left atrial size. Review of Systems All other systems reviewed negative except as stated in HPI [facility] - History History Provided By: Patient - Medical History Medical History: Medical History (Last Reviewed 07/05/18 @ 10:42 by Arnaud Ayala DO) Brain aneurysm (Acute) Insomnia (Acute) Seizures (Acute) Abdominal aneurysm (Acute) COPD (chronic obstructive pulmonary disease) (Acute) Lupus (Acute) - Surgical History Surgical History: Surgical History (Last Reviewed 07/05/18 @ 10:42 by Arnaud Ayala DO) S/P aneurysm repair (Acute) H/O hernia repair (Acute) - Family History Family History: Family History (Last Updated 07/05/18 @ 10:42 by Arnaud Ayala DO) Other Alzheimer disease - Tobacco History Second Hand Smoke Exposure: No Tobacco Use In Past 30 Days: Yes Smoking Status: Former smoker Tobacco Type: Cigarettes - Alcohol History How Often Do You Have a Drink Containing Alcohol: Never - Substance Use History Substance History: Past History - Substance Use Type Marijuana Status: Active Route Used: Inhalation Frequency: occ Reason for Use: Calm Down, Feels Good - Travel History Recent Travel in the [place] Within the Last 8 Weeks: No Recent Travel Out of the Country Within the Last 8 Weeks: No - Immunization History Tetanus Immunization: <5 Years Hx Influenza Vaccine This Season: Unable to Assess Medications and Allergies Active Medications: Active Medications Acetaminophen (Tylenol) 650 mg PO Q4H PRN PRN Reason: Temp > 100.4 Al Hydroxide/Mg Hydroxide (Milk Of Gillian Liq) 30 ml PO Q12H PRN PRN Reason: Mild Constipation Albuterol (Duoneb Neb (Prn)) 1 ampul NEB Q4HR NEB PRN PRN Reason: SOB/WHEEZING Albuterol (Duoneb Neb (Mk)) 1 ampul NEB Q6HR WHILE AWAKE NEB [facility] Last Admin: 07/07/18 07:18 Dose: 1 ampul Atorvastatin Calcium (Lipitor) 20 mg PO DAILY@1800 [facility] Last Admin: 07/06/18 18:00 Dose: 20 mg Bisacodyl (Dulcolax Supp) 10 mg RECTAL DAILY PRN PRN Reason: SEVERE CONSITIPATION Budesonide/Formoterol Fumarate (Symbicort 160/4.5 Mcg Inh) 2 puff INH BID [facility] Last Admin: 07/06/18 23:39 Dose: 2 puff Digoxin (Lanoxin) 250 mcg PO DAILY [facility] Diltiazem HCl (Cardizem) 60 mg PO QID [facility] Last Admin: 07/06/18 23:40 Dose: 60 mg Guaifenesin (Mucinex Er) 600 mg PO BID [facility] Last Admin: 07/06/18 23:39 Dose: 600 mg Sodium Chloride (Ns Inj) 500 mls @ 0 mls/hr IV.SIG BOLUS [facility] Last Infusion: 07/04/18 19:52 Dose: Infused Levofloxacin/Dextrose (Levaquin 750 Mg Premix Inj) 150 mls @ 100 mls/hr IV.SIG Q24H [facility] Last Infusion: 07/06/18 14:50 Dose: Infused Lactulose (Lactulose Liq) 30 ml PO DAILY PRN PRN Reason: SEVERE CONSITIPATION Methylprednisolone Sodium Succinate (Solumedrol Inj) 40 mg IV.PUSH BID [facility] Last Admin: 07/06/18 23:39 Dose: 40 mg Ondansetron HCl (Zofran Inj) 4 mg IV.PUSH Q6H PRN PRN Reason: NAUSEA OR VOMITING Phenytoin Sodium (Dilantin) 100 mg PO TID [facility] Last Admin: 07/06/18 18:00 Dose: 100 mg Senna/Docusate Sodium (Malu-Colace) 1 tab PO BID [facility] Last Admin: 07/06/18 23:39 Dose: 1 tab Sennosides (Senokot) 17.2 mg PO Q12H PRN PRN Reason: Moderate Constipation Allergies Allergy/AdvReac Type Severity Reaction Status Date / Time No Known Allergies Allergy Verified 07/05/18 00:28 Home Medications Medication Instructions Recorded Confirmed Type atenolol 25 mg PO DAILY 06/05/18 07/04/18 History hydrochlorothiazide 25 mg PO DAILY 06/05/18 07/04/18 History phenytoin sodium extended 100 mg PO TID 06/05/18 07/04/18 History [Dilantin Extended] simvastatin 40 mg PO QPM 06/05/18 07/04/18 History Exam Vital signs: Vital Signs 07/06/18 08:00 07/06/18 11:29 07/06/18 13:54 Temperature 97.5 F L Pulse Rate 124 H 124 H 122 H Respiratory Rate 20 20 Blood Pressure 124/80 Pulse Oximetry 95 07/06/18 15:14 07/06/18 19:51 07/06/18 20:00 Temperature 96.8 F L 97.8 F Pulse Rate 127 H 128 H 125 H Respiratory Rate 20 18 22 Blood Pressure 117/76 133/89 Pulse Oximetry 95 97 98 07/07/18 00:00 07/07/18 04:00 07/07/18 07:21 Temperature 97.5 F L 97.9 F Pulse Rate 128 H 126 H 127 H Respiratory Rate 20 20 19 Blood Pressure 117/82 115/80 Pulse Oximetry 94 L 94 L 94 L Intake & Output 07/06/18 07/07/18 07/07/18 18:59 06:59 18:59 Intake Total 990 / 990 Output Total 200 / 200 Balance 990 / 990 -200 / -200 Weight 140 lb 14.006 oz Intake: IV 150 / 150 Levaquin 750 mg Premix Inj 150 150 / 150 ML @ 100 mls/hr IV.SIG Q24H [facility] Rx#:[id number] Oral 840 / 840 Output: Urine 200 / 200 Other: # Voids 4 Narrative: GENERAL: Well-developed well-nourished. In no acute distress. NECK: No carotid bruits. No JVD. CARDIOVASCULAR: Tachycardic rate and regular rhythm. No murmur appreciated. RESPIRATORY: No accessory muscle use. Clear to auscultation. Breath sounds equal bilaterally. MUSCULOSKELETAL: No clubbing or cyanosis. No edema. NEUROLOGICAL: Awake and alert. Normal speech. Results 07/05/18 07:00 07/05/18 07:00 Intake and Output 07/06/18 07/07/18 07/07/18 22:59 06:59 14:59 Intake Total 840 / 840 Output Total 200 / 200 Balance 840 / 840 -200 / -200 Intake: Oral 840 / 840 Output: Urine 200 / 200 Other: # Voids 4 Weight 140 lb 14.006 oz Assessment and Plan - Plan 73-year-old male with past medical history of COPD on home O2, HTN who presented for worsening shortness of breath. Patient states he felt like he was getting pneumonia again, has been given antibiotics for treatment and reports his breathing has improved back to baseline. He was found to have atrial flutter, rate around 130. He denies any heart racing, fluttering, passing out, orthopnea, ankle swelling. Echocardiogram showed EF 6065%, with normal left atrial size. Atrial flutter: Diltiazem 60 mg (change to long acting at DC) and digoxin 0.25 mg to improve rate control. Patient is asymptomatic. Discussed plan of care with the patient, we will plan on anticoagulation 3 weeks and plan for outpatient DCC, patient agreeable, all questions answered. Patient declines warfarin. Will start Eliquis 5mg BID (discussed with pharmacy, anticoagulation efficacy should not be significantly affected by Dilantin)(please provide patient prescription card at discharge) COPD/pneumonia: Management per primary team. Discussed Condition With: Patient, hospitalist, pharmacist, Dr. Hernandez
[2018-07-07] MEDS: Senna/Docusate Sodium 8.6/50 MG Tablet PO SCH ×2 (09:27→21:50)
[2018-07-07] MEDS: dilTIAZem 60 MG Tablet PO SCH ×2 (09:27→13:57)
[2018-07-07] MEDS: guaiFENesin 600 MG ER Tablet PO SCH ×2 (09:27→21:50)
[2018-07-07] MEDS: Phenytoin Sodium 100 MG Capsule PO SCH ×3 (09:27→18:28)
[2018-07-07] MEDS: Digoxin 250 MCG Tablet PO SCH (09:27)
[2018-07-07] MEDS: Budesonide-Formoterol 160/4.5 MCG 6 GM Inhaler INH SCH ×2 (09:28→21:50)
[2018-07-07] MEDS: MethylPREDNISolone Sod Succinate Inj 40 MG/ML Vial IV.PUSH SCH (09:28)
--- NOTE | 2018-07-07 10:51 | P.PNIM ---
Subjective Interval history: The patient was resting comfortably. He said he talked with the heart team. He says he was okay with being on anticoagulation. Discussed with nursing at bedside. Discussed with cardiology. Physical Exam Vital signs: Vital Signs 07/06/18 11:29 07/06/18 13:54 07/06/18 15:14 Temperature 97.5 F L 96.8 F L Pulse Rate 124 H 122 H 127 H Respiratory Rate 20 20 20 Blood Pressure 124/80 117/76 Pulse Oximetry 95 95 07/06/18 19:51 07/06/18 20:00 07/07/18 00:00 Temperature 97.8 F 97.5 F L Pulse Rate 128 H 125 H 128 H Respiratory Rate 18 22 20 Blood Pressure 133/89 117/82 Pulse Oximetry 97 98 94 L 07/07/18 04:00 07/07/18 07:21 07/07/18 08:00 Temperature 97.9 F 98.4 F Pulse Rate 126 H 127 H 129 H Respiratory Rate 20 19 22 Blood Pressure 115/80 128/72 Pulse Oximetry 94 L 94 L 92 L Intake & Output 07/06/18 07/07/18 07/07/18 18:59 06:59 18:59 Intake Total 990 / 990 240 / 240 Output Total 200 / 200 Balance 990 / 990 -200 / -200 240 / 240 Weight 63.9 kg Intake: IV 150 / 150 Levaquin 750 mg Premix Inj 150 150 / 150 ML @ 100 mls/hr IV.SIG Q24H [facility] Rx#:[id number] Oral 840 / 840 240 / 240 Output: Urine 200 / 200 Other: # Voids 4 Narrative: GENERAL: No distress. SKIN: Focused skin assessment warm/dry. HEAD: Atraumatic. Normocephalic. EYES: Pupils equal and round. No scleral icterus. No injection or drainage. ENT: No nasal bleeding or discharge. Mucous membranes pink and moist. NECK: Trachea midline. No JVD. CARDIOVASCULAR: Tachycardic. No murmur appreciated. RESPIRATORY: Clear to auscultation. GASTROINTESTINAL: Abdomen soft, non-tender, nondistended. Hepatic and splenic margins not palpable. MUSCULOSKELETAL: No obvious deformities. No clubbing. No cyanosis. TR lower extremity edema. NEUROLOGICAL: Awake and alert. No obvious cranial nerve deficits. Motor grossly within normal limits. Normal speech. Results - Labs CBC & Chem 7: 07/05/18 07:00 07/05/18 07:00 Microbiology 07/04/18 18:45 Blood - Peripheral Aerobic Blood Culture - Preliminary No growth in 2 days 07/04/18 18:45 Blood - Peripheral Anaerobic Blood Culture - Preliminary No growth in 2 days 07/04/18 18:40 Blood - Peripheral Aerobic Blood Culture - Preliminary No growth in 2 days 07/04/18 18:40 Blood - Peripheral Anaerobic Blood Culture - Preliminary No growth in 2 days Assessment and Plan - Plan COPD exacerbation The pt has COPD and is on home oxygen. He presents with increasing shortness of breath. CXR is stable. -continue nebs, steroids and antibiotics. Change Solumedrol to prednisone. -Symbicort added. -encourage ambulation. -incentive spirometry. -ADAT. Atrial flutter EKG similar to prior, suggesting A flutter. Trops flat. TSH WNL. Echo with normal EF. Cardiology consult appreciated. -telemetry. -cardiology increased Cardizem, added digoxin. -Adriquis for anticoagulation. Discussed with cardiology, benefits of anticoagulation outweigh risks of aneurysm history. -case management consult for assistance with meds. AAA/ Cerebral aneurysms The pt says he is trying to get surgery scheduled for his AAA. He has a history of two cerebral aneurysm repairs in 1989. [facility] PPx: Xochilt
[2018-07-07] MEDS: predniSONE 20 MG Tablet PO SCH (21:50)
--- NOTE | 2018-07-08 07:44 | P.PNCA ---
Subjective Interval history: Cardizem dose was titrated up and patient's BP is soft today. Atrial flutter rate remains around 125. The patient remains asymptomatic and reports his breathing continues to improve. Physical Exam Vital signs: Vital Signs 07/07/18 08:00 07/07/18 12:00 07/07/18 13:41 Temperature 98.4 F 97.2 F L Pulse Rate 128 H 130 H 128 H Respiratory Rate 22 19 18 Blood Pressure 128/72 117/76 Pulse Oximetry 94 L 94 L 07/07/18 16:00 07/07/18 17:55 07/07/18 19:25 Temperature 97.9 F Pulse Rate 129 H 124 H Respiratory Rate 18 Blood Pressure 133/89 Pulse Oximetry 94 L 07/07/18 20:00 07/08/18 00:00 07/08/18 04:00 Temperature 97.3 F L 97.7 F 97.8 F Pulse Rate 128 H 126 H 125 H Respiratory Rate 20 20 20 Blood Pressure 129/79 127/65 100/61 Pulse Oximetry 94 L 92 L 94 L Intake & Output 07/07/18 07/08/18 07/08/18 18:59 06:59 18:59 Intake Total 870 / 870 605 / 605 Output Total 300 / 300 850 / 850 Balance 570 / 570 -245 / -245 Weight 147 lb 0.773 oz Intake: IV 150 / 150 Levaquin 750 mg Premix Inj 150 150 / 150 ML @ 100 mls/hr IV.SIG Q24H [facility] Rx#:[id number] Oral 720 / 720 605 / 605 Output: Urine 300 / 300 850 / 850 Narrative: GENERAL: Well-developed well-nourished. In no acute distress. NECK: No carotid bruits. No JVD. CARDIOVASCULAR: Tachycardic rate and irregular rhythm. No murmur appreciated. RESPIRATORY: No accessory muscle use. Clear to auscultation. Breath sounds equal bilaterally. MUSCULOSKELETAL: No clubbing or cyanosis. No edema. NEUROLOGICAL: Awake and alert. Normal speech. Assessment and Plan - Plan 73-year-old male with past medical history of COPD on home O2, HTN who presented for worsening shortness of breath. Patient states he felt like he was getting pneumonia again, has been given antibiotics for treatment and reports his breathing has improved back to baseline. He was found to have atrial flutter, rate around 130. He denies any heart racing, fluttering, passing out, orthopnea, ankle swelling. Echocardiogram showed EF 6065%, with normal left atrial size. Atrial flutter: Rate uncontrolled on diltiazem and digoxin and now with borderline hypotension on 90 mg diltiazem dose. Patient is asymptomatic. Unable to rate control for outpatient cardioversion, will plan for [facility]/DCC, transfer to the main hospital. Continue Eliquis for anticoagulation. Discussed Condition With: Patient with RN at bedside, Dr. Hernandez
--- NOTE | 2018-07-08 09:36 | P.PNIM ---
Subjective Interval history: The patient was resting comfortably in bed. He said he was using his albuterol earlier in he was aware he has to go to the other hospital for a cardioversion. He said he has complications from his brain aneurysms but he deals with them. He had no acute complaints at this time. Physical Exam Vital signs: Vital Signs 07/07/18 12:00 07/07/18 13:41 07/07/18 16:00 Temperature 97.2 F L 97.9 F Pulse Rate 130 H 128 H 129 H Respiratory Rate 19 18 Blood Pressure 117/76 Pulse Oximetry 94 L 07/07/18 17:55 07/07/18 19:25 07/07/18 20:00 Temperature 97.3 F L Pulse Rate 124 H 128 H Respiratory Rate 18 20 Blood Pressure 133/89 129/79 Pulse Oximetry 94 L 94 L 07/08/18 00:00 07/08/18 04:00 07/08/18 08:00 Temperature 97.7 F 97.8 F 97.4 F L Pulse Rate 126 H 125 H 127 H Respiratory Rate 20 20 22 Blood Pressure 127/65 100/61 115/76 Pulse Oximetry 92 L 94 L 95 07/08/18 08:09 Temperature Pulse Rate 126 H Respiratory Rate 18 Blood Pressure Pulse Oximetry 94 L Intake & Output 07/07/18 07/08/18 07/08/18 18:59 06:59 18:59 Intake Total 870 / 870 605 / 605 240 / 240 Output Total 300 / 300 850 / 850 Balance 570 / 570 -245 / -245 240 / 240 Weight 66.7 kg Intake: IV 150 / 150 Levaquin 750 mg Premix Inj 150 150 / 150 ML @ 100 mls/hr IV.SIG Q24H [facility] Rx#:[id number] Oral 720 / 720 605 / 605 240 / 240 Output: Urine 300 / 300 850 / 850 Narrative: GENERAL: No distress. SKIN: Focused skin assessment warm/dry. HEAD: Atraumatic. Normocephalic. EYES: Pupils equal and round. No scleral icterus. No injection or drainage. ENT: No nasal bleeding or discharge. Mucous membranes pink and moist. NECK: Trachea midline. No JVD. CARDIOVASCULAR: Tachycardic. No murmur appreciated. RESPIRATORY: Clear to auscultation. GASTROINTESTINAL: Abdomen soft, non-tender, nondistended. Hepatic and splenic margins not palpable. MUSCULOSKELETAL: No obvious deformities. No clubbing. No cyanosis. TR lower extremity edema. NEUROLOGICAL: Awake and alert. No obvious cranial nerve deficits. Motor grossly within normal limits. Normal speech. Results - Labs CBC & Chem 7: 07/05/18 07:00 07/05/18 07:00 Microbiology 07/04/18 18:45 Blood - Peripheral Aerobic Blood Culture - Preliminary No growth in 3 days 07/04/18 18:45 Blood - Peripheral Anaerobic Blood Culture - Preliminary No growth in 3 days 07/04/18 18:40 Blood - Peripheral Aerobic Blood Culture - Preliminary No growth in 3 days 07/04/18 18:40 Blood - Peripheral Anaerobic Blood Culture - Preliminary No growth in 3 days Assessment and Plan - Plan COPD exacerbation The pt has COPD and is on home oxygen. He presents with increasing shortness of breath. CXR is stable. -continue nebs, steroids and antibiotics. Changed Solumedrol to prednisone 20 mg BID. -Symbicort added. -encourage ambulation. -incentive spirometry. -ADAT. Atrial flutter EKG similar to prior, suggesting A flutter. Trops flat. TSH WNL. Echo with normal EF. Cardiology consult appreciated. -telemetry. -cardiology increased Cardizem, added digoxin. -Eliquis for anticoagulation. Discussed with cardiology, benefits of anticoagulation outweigh risks of aneurysm history. -cardiology would like to transfer pt to main hospital for cardioversion as heart rate still not controlled on meds. -case management consult for assistance with meds. AAA/ Cerebral aneurysms The pt says he is trying to get surgery scheduled for his AAA. He has a history of two cerebral aneurysm repairs in 1989. [facility] PPx: Xochilt
[2018-07-08] MEDS: guaiFENesin 600 MG ER Tablet PO SCH ×2 (10:06→21:13)
[2018-07-08] MEDS: dilTIAZem 60 MG Tablet PO SCH ×4 (10:06→21:13)
[2018-07-08] MEDS: Senna/Docusate Sodium 8.6/50 MG Tablet PO SCH ×2 (10:06→21:14)
[2018-07-08] MEDS: Phenytoin Sodium 100 MG Capsule PO SCH ×3 (10:12→17:20)
[2018-07-08] MEDS: Digoxin 250 MCG Tablet PO SCH (10:12)
[2018-07-08] MEDS: predniSONE 20 MG Tablet PO SCH ×2 (10:13→21:13)
[2018-07-08] MEDS: Budesonide-Formoterol 160/4.5 MCG 6 GM Inhaler INH SCH ×2 (10:13→21:13)
[2018-07-08 21:09] VITALS: RESP 18
[2018-07-09 05:24] VITALS: BP 124/83; PULSE 125; TEMP 96.7
[2018-07-09 06:55] LABS: Potassium 4.3 meq/L (3.5-5.1)
[2018-07-09 07:02] LABS: Carbon Dioxide 26.5 meq/L (21.0-32.0); Magnesium 1.1 mg/dL (1.5-2.5)
[2018-07-09 07:03] LABS: Calcium 8.6 mg/dL (8.5-10.1)
[2018-07-09 07:11] VITALS: O2SAT 95
[2018-07-09] MEDS ORDERED: Chlorhexidine Gluconate 2% 1 Pack (2 Cloths) TOPICAL ONE (09:06)
[2018-07-09] MEDS ORDERED: Metoprolol Tartrate 25 MG Tablet PO ONE (09:06)
[2018-07-09] MEDS ORDERED: Sodium Chlor 0.9% Inj 500 ML IV.SIG SCH (10:00)
[2018-07-09] MEDS ORDERED: Amiodarone Inj 150 MG in Dextrose 5% in Water Inj 97 ML IV.SIG ONE ×2 (12:52)
--- NOTE | 2018-07-09 16:15 | P.DS ---
Date of admission: 07/05/18 04:04 Primary care physician: [facility] Brief History from admission: The patient is a 73 year old male with a past medical history significant for COPD who is presenting to the hospital with increasing shortness of breath. He said he was treated in the hospital last month for the same thing. He says he has been short-winded as a child and over the past few years he developed COPD. He is currently on 3L [place] home oxygen. 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 He uses a puffer and a nebulizer at home. He endorses clear mucous following nebulizer usage. He has been ambulating well and has been tolerating a diet. He denies any fevers. He says the last time he was in the hospital he was discharged with steroids and antibiotics. He still smokes marijuana, which he acknowledges causes breathing difficulties. DS: Medications - Discharge Medications Prescriptions: albuterol sulfate 2 puff INHALATION Q6H PRN #1 g PRN Reason: Wheezing, Shortness of Breath apixaban [Eliquis] 5 mg PO BID #60 tab budesonide-formoterol [Symbicort] 2 puff INH BID #1 g digoxin 250 mcg PO DAILY #30 tab ipratropium-albuterol 1 amp NEB Q6HR WHILE AWAKE NEB #1 box DS: Summary Hospital Course: Mr. Lowery is a 73-year-old male. He is admitted secondary to COPD exacerbation and also had new onset a flutter. COPD exacerbation has been treated and this has stabilized with this patient. Currently he is approaching his baseline breathing status. Cardioversion was performed and he is cleared by cardiology today. New treatments are Eliquis, digoxin, and Symbicort. And as needed albuterol inhaler is also provided. Patient is medically stable and cleared for discharge to home. - Time Spent with Patient Total time spent providing and/or coordinating discharge services: Less than 30 minutes - Quality: VTE Deep Vein Thrombosis/Pulmonary Embolism Present on Admission: No Exam Vital signs: Vital Signs 07/08/18 19:21 07/08/18 20:00 07/08/18 20:08 Temperature 96.4 F L Pulse Rate 124 H 131 H 129 H Respiratory Rate 20 18 Blood Pressure 136/80 Pulse Oximetry 96 93 L 07/09/18 00:00 07/09/18 04:00 07/09/18 07:10 Temperature 97.4 F L 96.7 F L Pulse Rate 128 H 125 H 125 H Respiratory Rate 18 18 18 Blood Pressure 114/67 124/83 Pulse Oximetry 95 94 L 95 Intake & Output 07/08/18 07/09/18 07/09/18 18:59 06:59 18:59 Intake Total 1200 / 1200 0 / 0 Output Total 1441 / 1441 Balance -241 / -241 0 / 0 Weight 66.9 kg Intake: Oral 1200 / 1200 0 / 0 Output: Urine 1440 / 1440 Stool 1 / 1 Other: # Voids 1 3 Date of Last Bowel Movement 07/08/18 07/08/18 Results Procedures completed during hospitalization: Cardioversion Labs on day of discharge: Labs from last 24 hours 07/09/18 06:20 Sodium 141 Potassium 4.3 Chloride 106 Carbon Dioxide 26.5 Anion Gap 9 BUN 28 H Creatinine 1.20 Estimated GFR 59 L Random Glucose 152 H Calcium 8.6 Magnesium 1.1 L - Impressions ITS Impressions Chest X-Ray 07/04/18 18:02 CONCLUSION: No significant change compared to 06/05/2018. Discharge Plan - Discharge Disposition Patient Disposition: 01 Discharge Home - Discharge Condition Condition: Stable - Discharge Order Discharge Orders: Discharge Order (Routine); Ordered 07/09/18 Ordered By: Rickey Angeles - Discharge Details Anticipated Discharge Date: 07/09/18 - Physicians Team Primary Care Provider: [facility] [place] Attending Provider: Rickey Angeles Other Providers: Chuck Hernandez MD
--- NOTE | 2018-07-10 09:37 | ECHRPT ---
Indication: A FIB FLUTTER CONCLUSIONS Normal left ventricular size. Wall thickness is normal. The left ventricular systolic function is normal with an estimated ejection fraction in the range of 55-60%. The left atrial size is oyrl-hh-mapnbgvtbu dilated. The right atrial size is moderately dilated. Normal left atrial appendage size with no evidence of thrombus formation. Mild thickening of the mitral valve leaflets. Lhcl-rj-hsrmlxdw mitral valve regurgitation. Mitral annular calcification is present. No mitral valve stenosis. Direct current cardioversion at 100 J with conversion from atrial fibrillation to normal sinus rhyth m BP: / HR: Rhythm: Technical Quality: Medications Complications Proc. Components The patient was brought to the diagnostic imaging area in a fasting state after o btaining an informed consent. The patient was premedicated with IV Versed and IV Fentanyl. The resourcing consultant ior pharynx was sprayed with Cetacaine spray and the patient was administered viscous Xylocaine 2 %. The JADE probe was passed into the posterior pharynx , mid-esophagus, distal esophagus, and gastric fundus. JDAE was performed at multiple levels. The patient tolerated the procedure well and there were no complications. The patient was transferred to the floor in satisfactory condition.. FINDINGS LEFT VENTRICLE Normal left ventricular size. Wall thickness is normal. The left ventricular systolic function is normal with an estimated ejection fraction in the range of 55-60%. RIGHT VENTRICLE Normal right ventricular size and systolic function. LEFT ATRIUM The left atrial size is ydgt-tp-jxocusondl dilated. RIGHT ATRIUM The right atrial size is moderately dilated. ATRIAL APPENDAGES Normal left atrial appendage size with no evidence of thrombus formation. ATRIAL SEPTUM Normal atrial septal thickness without atrial level shunting by limited color doppler interrogation. AORTA The aortic root and proximal ascending aorta are normal in size on limited imaging. MITRAL VALVE Mild thickening of the mitral valve leaflets. Ivqm-jm-harqtuks mitral valve regurgitation. Mitral annular calcification is present. No mitral valve stenosis. AORTIC VALVE Trileaflet aortic valve. No aortic valve stenosis or regurgitation. TRICUSPID VALVE Mild thickening of the tricuspid valve leaflets. There is mild tricuspid valve regurgitation. VESSELS The inferior vena cava is normal in size. PULMONARY VALVE The pulmonary valve is not well visualized. PERICADIUM No pericardial effusion. Chuck Hernandez MD, FACC (Electronically Signed) Final Date:10 July 2018 09:37
--- NOTE | 2018-07-10 19:07 | ECG ---
Date Performed: 07/09/2018 Time Performed: 13:27:16 PTAGE: 73 years EKG: Sinus rhythm . Indeterminate axis Septal ST-T changes are nonspecific Borderline ECG PREVIOUS TRACING : 07/06/2018 06.11 Compared to previous tracing, atrial flutter is no longer present DOCTOR: Mani Mir Interpretating Date/Time 07/10/2018 19:05:39
== END 2018-07-09 16:21 | disposition home or self-care (01) ==
LOC: PHED 17:11 → PHEDA 17:11 → PH3 07-05 07:55 → HDIC 07-09 11:54 → HCIS 07-09 14:09 → HDIC 07-09 14:35
PROVIDERS: ADMIT Hospitalist; ATTEND Hospitalist
DX: J18.9 Pneumonia, unspecified organism; J44.1 Chronic obstructive pulmonary disease with (acute) exacerbation; Z79.51 Long term (current) use of inhaled steroids; F12.90 Cannabis use, unspecified, uncomplicated; I10 Essential (primary) hypertension; Z99.81 Dependence on supplemental oxygen; J44.0 Chronic obstructive pulmonary disease with (acute) lower respiratory infection; Z85.72 Personal history of non-Hodgkin lymphomas; Z82.0 Family history of epilepsy and other diseases of the nervous system; Z87.891 Personal history of nicotine dependence; Z66 Do not resuscitate; I67.1 Cerebral aneurysm, nonruptured; I71.4 Abdominal aortic aneurysm, without rupture; Z79.899 Other long term (current) drug therapy; I48.92 Unspecified atrial flutter; Z79.01 Long term (current) use of anticoagulants

== ENCOUNTER 2018-09-03 10:05 | Observation (INO) ==
[2018-09-03] MEDS ORDERED: Sod Chloride 0.9% Inj 1,000 ML IV.CONT SCH (10:45)
--- NOTE | 2018-09-03 10:47 | ED ---
HPI General Chief complaint: Nausea/Vomiting/Diarrhea Stated complaint: SOB/Rectal bleeding/Diarrhea x 2 weeks Time Seen by Provider: 09/03/18 10:38 Source: patient Mode of arrival: ambulatory Limitations: no limitations History of Present Illness HPI narrative: This 73-year-old male is complaining of diarrhea. He says he been having diarrhea for the past 2 weeks. He says he is not having abdominal pain. He has noted some blood in his stool usually at the end of the stool. He says he has been eating okay. He had does have a history of COPD and says that has not been a problem. He is feeling lightheaded at times Related Data Home Medications Medication Instructions Recorded Confirmed atenolol 25 mg PO DAILY 06/05/18 09/03/18 hydrochlorothiazide 25 mg PO DAILY 06/05/18 09/03/18 phenytoin sodium extended 100 mg PO TID 06/05/18 09/03/18 [Dilantin Extended] simvastatin 80 mg PO QPM 06/05/18 09/03/18 Previous Rx's Medication Instructions Recorded albuterol sulfate 2.5 mg INHALATION Q6H #180 ml 07/12/18 Allergies Allergy/AdvReac Type Severity Reaction Status Date / Time No Known Allergies Allergy Verified 09/03/18 10:16 Review of Systems ROS: all other systems reviewed are negative [facility] Medical History Medical History Brain aneurysm (Acute) Insomnia (Acute) Seizures (Acute) Abdominal aneurysm (Acute) COPD (chronic obstructive pulmonary disease) (Acute) Lupus (Acute) Family History Family History Other Alzheimer disease Social History Social History Substance History: No History of Abuse Second Hand Smoke Exposure: No Smoking Status: Former smoker Tobacco Type: Cigarettes How Often Do You Have a Drink Containing Alcohol: Never Recent Travel in [facility] within the Last 8 Weeks: No Recent Out of Country Travel within the Last 8 Weeks: No Exam Narrative Exam Narrative: GENERAL: Thin chronically ill male appearing older than his stated age SKIN: Focused skin assessment warm/dry. He is pale HEAD: Atraumatic. Normocephalic. EYES: Pupils equal and round. No scleral icterus. No injection or drainage. ENT: No nasal bleeding or discharge. Mucous membranes pink and moist. NECK: Trachea midline. No JVD. CARDIOVASCULAR: Regular rate and rhythm. No murmur appreciated. RESPIRATORY: There is accessory muscle use. Clear to auscultation. Breath sounds diminished bilaterally GASTROINTESTINAL: Abdomen soft, non-tender, nondistended. Hepatic and splenic margins not palpable. He does have large external hemorrhoids. Stool is brown but guaiac positive MUSCULOSKELETAL: No obvious deformities. No clubbing. No cyanosis. No edema. NEUROLOGICAL: Awake and alert. No obvious cranial nerve deficits. Motor grossly within normal limits. Normal speech. PSYCHIATRIC: Appropriate mood and affect; insight and judgment normal. Course Initial Documented Vital Signs Temperature 97.8 F 09/03/18 10:16 Pulse Rate 83 09/03/18 10:16 Respiratory Rate 24 09/03/18 10:16 Blood Pressure 87/54 L 09/03/18 10:16 Pulse Oximetry 99 09/03/18 10:16 Last Documented Vital Signs Temperature 97.8 F 09/03/18 10:16 Pulse Rate 79 09/03/18 11:55 Respiratory Rate 20 09/03/18 11:55 Blood Pressure 116/71 09/03/18 11:55 Pulse Oximetry 100 09/03/18 11:55 Medical Decision Making [facility] Narrative Medical decision making narrative: Patient stool is brown but guaiac positive. His hemoglobin today is 9.9 which is less than usual for him. He will be admitted for further evaluation Medical Screen Exam Complete: Yes Emergency Medical Condition: Yes Differential Diagnosis Differential Diagnosis: Differential includes enteritis, anemia, GI bleed Lab Data Result diagrams: 09/03/18 11:00 09/03/18 11:00 Lab Results 09/03/18 09/03/18 09/03/18 Range/Units 11:00 11:00 11:10 CBC w Diff Auto diff final WBC 9.4 (4.0-11.0) th/mm3 RBC 3.24 L (4.50-5.90) mil/mm3 Hgb 9.9 L (13.0-17.0) gm/dL Hct 29.6 L (39.0-51.0) % MCV 91.2 (80.0-100.0) fL MCH 30.5 (27.0-34.0) pg MCHC 33.4 (32.0-36.0) % RDW 15.3 (11.6-17.2) % Plt Count 609 H (150-450) th/mm3 MPV 6.7 L (7.0-11.0) fL Neut % (Auto) 83.6 H (16.0-70.0) % Lymph % (Auto) 6.5 L (9.0-44.0) % [place] % (Auto) 3.8 (0.0-8.0) % Eos % (Auto) 4.5 H (0.0-4.0) % Baso % (Auto) 1.6 (0.0-2.0) % Neut # (Auto) 7.8 H (1.8-7.7) th/mm3 Lymph # (Auto) 0.6 L (1.0-4.8) th/mm3 [place] # (Auto) 0.4 (0.0-0.9) th/mm3 Eos # (Auto) 0.4 (0.0-0.4) th/mm3 Baso # (Auto) 0.2 (0.0-0.2) th/mm3 WBC Differential . Differential Comment . PT 11.3 (9.8-11.6) sec INR 1.1 Ratio APTT 27.1 (23.4-31.7) sec Sodium 134 L (136-145) meq/L Potassium 3.5 (3.5-5.1) meq/L Chloride 95 L (98-107) meq/L Carbon Dioxide 27.7 (21.0-32.0) meq/L Anion Gap 11 (5-15) meq/L BUN 20 H (7-18) mg/dL Creatinine 1.20 (0.60-1.30) mg/dL Estimated GFR 59 L (>89) mL/min Random Glucose 102 (74-106) mg/dL Calcium 8.3 L (8.5-10.1) mg/dL Magnesium 1.4 L (1.5-2.5) mg/dL Total Bilirubin 0.3 (0.2-1.0) mg/dL AST 92 H (15-37) U/L ALT 56 (12-78) U/L Alkaline Phosphatase 105 (45-117) U/L Total Protein 6.6 (6.4-8.2) g/dL Albumin 1.9 L (3.4-5.0) g/dL Discharge Plan Discharge Disposition Patient Disposition: 30 Still Patient Discharge Condition Condition: Fair Discharge Details Diagnosis: GI bleed Physicians Team ED Provider: Efrem Medina Primary Care Provider: [facility] Other Providers: Jessi Shoemaker Rxs /Orders / Referrals /Forms Prescriptions: No Action atenolol 25 mg Tablet 25 mg PO DAILY RF: 0 hydrochlorothiazide 25 mg Tablet 25 mg PO DAILY RF: 0 simvastatin 40 mg Tablet 80 mg PO QPM RF: 0 phenytoin sodium extended [Dilantin Extended] 100 mg Capsule 100 mg PO TID RF: 0 albuterol sulfate 2.5 mg /3 mL (0.083 %) solution for nebulization 2.5 mg INHALATION Q6H Qty: 180 RF: 0 Status ED Status: With Doctor
[2018-09-03 11:25] LABS: Baso # (Auto) 0.2 th/mm3 (0.0-0.2); Baso % (Auto) 1.6 % (0.0-2.0); Eos # (Auto) 0.4 th/mm3 (0.0-0.4); Eos % (Auto) 4.5 % (0.0-4.0); Hematocrit 29.6 % (39.0-51.0); Hemoglobin 9.9 gm/dL (13.0-17.0); Lymph # (Auto) 0.6 th/mm3 (1.0-4.8); Lymph % (Auto) 6.5 % (9.0-44.0); Mean Corpuscular HGB Conc 33.4 % (32.0-36.0); Mean Corpuscular Hemoglobin 30.5 pg (27.0-34.0); Mean Corpuscular Volume 91.2 fL (80.0-100.0); Mean Platelet Volume 6.7 fL (7.0-11.0); Mono # (Auto) 0.4 th/mm3 (0.0-0.9); Mono % (Auto) 3.8 % (0.0-8.0); Neut # (Auto) 7.8 th/mm3 (1.8-7.7); Neut % (Auto) 83.6 % (16.0-70.0); Platelet Count 609 th/mm3 (150-450); Red Blood Count 3.24 mil/mm3 (4.50-5.90); Red Cell Distribution Width 15.3 % (11.6-17.2); White Blood Count 9.4 th/mm3 (4.0-11.0)
[2018-09-03 11:32] LABS: Chloride 95 meq/L (98-107); Potassium 3.5 meq/L (3.5-5.1); Sodium 134 meq/L (136-145)
[2018-09-03 11:35] LABS: Calcium 8.3 mg/dL (8.5-10.1)
[2018-09-03 11:36] LABS: Albumin 1.9 g/dL (3.4-5.0); Anion Gap 11 meq/L (5-15); Blood Urea Nitrogen 20 mg/dL (7-18); Carbon Dioxide 27.7 meq/L (21.0-32.0); Glucose,Random 102 mg/dL (74-106); Magnesium 1.4 mg/dL (1.5-2.5)
[2018-09-03 11:39] LABS: Alanine Aminotransferase 56 U/L (12-78); Aspartate Aminotransferase 92 U/L (15-37); Glomerular Filtration Rate 59 mL/min (>89)
[2018-09-03 11:41] LABS: Total Protein 6.6 g/dL (6.4-8.2)
[2018-09-03 11:42] LABS: Alkaline Phosphatase 105 U/L (45-117)
[2018-09-03] MEDS ORDERED: Bisacodyl 10 MG Supp RECTAL PRN (11:45)
[2018-09-03] MEDS ORDERED: Acetaminophen 325 MG Tablet PO PRN (11:45)
[2018-09-03 11:55] LABS: Activated Partial Thrombo Time 27.1 sec (23.4-31.7); INR 1.1 Ratio; Prothrombin Time 11.3 sec (9.8-11.6)
[2018-09-03] MEDS: Sod Chloride 0.9% Inj 1,000 ML IV.CONT SCH (11:58)
--- NOTE | 2018-09-03 15:42 | P.HP ---
History of Present Illness Service: Hospitalist Primary Care Physician: [facility] Chief Complaint: Rectal bleed History of Present Illness: Mr. Lowery is a pleasant 73-year-old with a history of brain aneurysm, COPD, abdominal aortic aneurysm who presents to the emergency department due to diarrhea and slow rectal bleed with the diarrhea that has been going on for 2 weeks. He denies any dark stool or profuse bleeding. Patient denies feeling any chest pain, lightheadedness or dizziness. He follows up with [facility] and underwent colonoscopy 6 months ago. He was apparently told that he has hemorrhoids. Patient denies any cough, more than usual shortness of breath, fever or chills. He denies any changes in bladder habits. Past medical history: Brain aneurysm status post surgery, AAA, COPD Past surgical history: Brain aneurysm surgery x2, hernia repair Social history: Patient denies using tobacco, alcohol. Family history: Father had Alzheimer's disease. Review of Systems All other systems reviewed negative except as stated in HPI [facility] - History History Provided By: Patient - Medical History Medical History: Medical History (Last Reviewed 09/03/18 @ 11:58 by Efrem Medina MD) Brain aneurysm (Acute) Insomnia (Acute) Seizures (Acute) Abdominal aneurysm (Acute) COPD (chronic obstructive pulmonary disease) (Acute) Lupus (Acute) - Surgical History Surgical History: Surgical History (Last Reviewed 07/12/18 @ 19:14 by DASHAWN Ochoa) S/P aneurysm repair (Acute) H/O hernia repair (Acute) - Family History Family History: Family History (Last Updated 07/05/18 @ 10:42 by Arnaud Ayala DO) Other Alzheimer disease - Tobacco History Second Hand Smoke Exposure: No Smoking Status: Never smoker Tobacco Type: Cigarettes - Alcohol History How Often Do You Have a Drink Containing Alcohol: Never - Substance Use History Substance History: No History of Abuse - Travel History Recent Travel in the [place] Within the Last 8 Weeks: No Recent Travel Out of the Country Within the Last 8 Weeks: No - Immunization History Tetanus Immunization: Unsure Medications and Allergies Active Medications: Active Medications Acetaminophen (Tylenol) 650 mg PO Q4H PRN PRN Reason: Headache, fever, pain 1-4 Al Hydroxide/Mg Hydroxide (Milk Of Magnesia Liq) 30 ml PO Q12H PRN PRN Reason: Mild Constipation Bisacodyl (Dulcolax Supp) 10 mg RECTAL DAILY PRN PRN Reason: SEVERE CONSITIPATION Sodium Chloride (Ns Inj) 1,000 mls @ 100 mls/hr IV.CONT .Q10H [facility] Last Infusion: 09/03/18 13:53 Dose: 100 mls/hr Lactulose (Lactulose Liq) 30 ml PO DAILY PRN PRN Reason: SEVERE CONSITIPATION Sennosides (Senokot) 17.2 mg PO Q12H PRN PRN Reason: Moderate Constipation Sodium Chloride (Ns Flush) 2 ml IV.FLUSH PRN PRN PRN Reason: FLUSH AFTER USING IV ACCESS Allergies Allergy/AdvReac Type Severity Reaction Status Date / Time No Known Allergies Allergy Verified 09/03/18 10:16 Home Medications Medication Instructions Recorded Confirmed Type atenolol 25 mg PO DAILY 06/05/18 09/03/18 History hydrochlorothiazide 25 mg PO DAILY 06/05/18 09/03/18 History phenytoin sodium extended 100 mg PO TID 06/05/18 09/03/18 History [Dilantin Extended] simvastatin 80 mg PO QPM 06/05/18 09/03/18 History Exam Vital signs: Vital Signs 09/03/18 10:16 09/03/18 11:55 09/03/18 13:12 Temperature 97.8 F Pulse Rate 83 79 80 Respiratory Rate 24 20 20 Blood Pressure 87/54 L 116/71 99/80 L Pulse Oximetry 99 100 100 Intake & Output 09/02/18 09/03/18 09/03/18 18:59 06:59 18:59 Intake Total 600 / 600 Balance 600 / 600 Weight 59.7 kg Intake: IV 600 / 600 NS Inj 1,000 ML @ 100 mls/hr IV 600 / 600 .CONT .Q10H [facility] Rx#:[id number] Narrative: GENERAL: This is a well-nourished, well-developed patient, in no apparent distress. Pale appearance. On nasal cannula. SKIN: No rashes, ecchymoses or lesions. Warm and dry. HEAD: Atraumatic. Normocephalic. No temporal or scalp tenderness. EYES: Pupils equal round and reactive. No injection or drainage. ENT: Nose without bleeding, purulent drainage or septal hematoma. Airway patent. NECK: Trachea midline. No lymphadenopathy. Supple, nontender, no meningeal signs. CARDIOVASCULAR: Regular rate and rhythm without murmurs, gallops, or rubs. No JVD. RESPIRATORY: Moderate air entry. No wheezes, rales, or rhonchi. GASTROINTESTINAL: Abdomen soft, non-tender, nondistended. No guarding. MUSCULOSKELETAL: Extremities without clubbing, cyanosis, or edema. NEUROLOGICAL: Awake and alert. Cranial nerves II through XII intact. No focal neurological deficits. Normal speech. Results - Labs CBC & Chem 7: 09/03/18 11:00 09/03/18 11:00 Labs: Laboratory Results - last 24 hr 09/03/18 09/03/18 09/03/18 11:00 11:00 11:00 CBC w Diff Auto diff final WBC 9.4 RBC 3.24 L Hgb 9.9 L Hct 29.6 L MCV 91.2 MCH 30.5 MCHC 33.4 RDW 15.3 Plt Count 609 H MPV 6.7 L Neut % (Auto) 83.6 H Lymph % (Auto) 6.5 L [place] % (Auto) 3.8 Eos % (Auto) 4.5 H Baso % (Auto) 1.6 Neut # (Auto) 7.8 H Lymph # (Auto) 0.6 L [place] # (Auto) 0.4 Eos # (Auto) 0.4 Baso # (Auto) 0.2 WBC Differential . Differential Comment . PT INR APTT Sodium 134 L Potassium 3.5 Chloride 95 L Carbon Dioxide 27.7 Anion Gap 11 BUN 20 H Creatinine 1.20 Estimated GFR 59 L Random Glucose 102 Calcium 8.3 L Magnesium 1.4 L Total Bilirubin 0.3 AST 92 H ALT 56 Alkaline Phosphatase 105 Total Protein 6.6 Albumin 1.9 L Stl C.difficile DNA Amp Negative St C. diff Tox Epid 027 Negative Blood Type Blood Type Recheck Antibody Screen 09/03/18 09/03/18 11:10 11:30 CBC w Diff WBC RBC Hgb Hct MCV MCH MCHC RDW Plt Count MPV Neut % (Auto) Lymph % (Auto) [place] % (Auto) Eos % (Auto) Baso % (Auto) Neut # (Auto) Lymph # (Auto) [place] # (Auto) Eos # (Auto) Baso # (Auto) WBC Differential Differential Comment PT 11.3 INR 1.1 APTT 27.1 Sodium Potassium Chloride Carbon Dioxide Anion Gap BUN Creatinine Estimated GFR Random Glucose Calcium Magnesium Total Bilirubin AST ALT Alkaline Phosphatase Total Protein Albumin Stl C.difficile DNA Amp St C. diff Tox Epid 027 Blood Type O Negative Blood Type Recheck Required Antibody Screen Negative Caprini VTE Risk Assessment Caprini VTE Risk Assessment: No/Low Risk (score <= 1) Caprini Risk Assessment Model: Point Value = 1 Point Value = 2 Point Value = 3 Point Value = 5 Age 41-60 Minor surgery BMI > 25 kg/m2 Swollen legs Varicose veins or History of unexplained or recurrent spontaneous Oral contraceptives or hormone replacement Sepsis (< 1 month) Serious lung disease, including pneumonia (< 1 month) Abnormal pulmonary function Acute myocardial infarction Congestive heart failure (< 1 month) History of inflammatory bowel disease Medical patient at bed rest Age 61-74 Arthroscopic surgery Major open surgery (> 45 min) Laparoscopic surgery (> 45 min) Malignancy Confined to bed (> 72 hours) Immobilizing plaster cast Central venous access Age >= 75 History of VTE Family history of VTE Factor V Leiden Prothrombin [id number] Lupus anticoagulant Anticardiolipin antibodies Elevated serum homocysteine Heparin-induced thrombocytopenia Other congenital or acquired thrombophilia Stroke (< 1 month) Elective arthroplasty Hip, pelvis, or leg fracture Acute spinal cord injury (< 1 month) Prophylaxis Regimen: Total Risk Factor Score Risk Level Prophylaxis Regimen 0-1 Low Early ambulation 2 Moderate Order ONE of the following: *Sequential Compression Device (SCD) *Heparin 5000 units SQ BID 3-4 Higher Order ONE of the following medications: *Heparin 5000 units SQ TID *Enoxaparin/Lovenox 40 mg SQ daily (WT < 150 kg, CrCl > 30 mL/min) *Enoxaparin/Lovenox 30 mg SQ daily (WT < 150 kg, CrCl > 10-29 mL/min) *Enoxaparin/Lovenox 30 mg SQ BID (WT < 150 kg, CrCl > 30 mL/min) AND/OR *Sequential Compression Device (SCD) 5 or more Highest Order ONE of the following medications: *Heparin 5000 units SQ TID (Preferred with Epidurals) *Enoxaparin/Lovenox 40 mg SQ daily (WT < 150 kg, CrCl > 30 mL/min) *Enoxaparin/Lovenox 30 mg SQ daily (WT < 150 kg, CrCl > 10-29 mL/min) *Enoxaparin/Lovenox 30 mg SQ BID (WT < 150 kg, CrCl > 30 mL/min) AND *Sequential Compression Device (SCD) Assessment and Plan - Plan This is a 73 year old with a history of brain aneurysm, AAA, hemorrhoids who presents to the emergency department on 09/03/2018 due to diarrhea and slow rectal bleed during bowel movement. Patient denies any chest pain, more than usual shortness of breath, fever or chills. He denies feeling lightheadedness or dizziness. Acute lower GI bleed due to hemorrhoids -Hemoglobin 9.9 today. However, his hemoglobin was 11.6 on 07/05/2018. -We will consult colorectal surgery due to hemorrhoids. -Patient underwent a colonoscopy at the [facility] 6 months ago. -We will transfuse if hemoglobin drops around 7. History of brain aneurysm History of AAA -Patient is being followed at the [facility] -Continue supplemental oxygen to maintain O2 saturation around 90% -DuoNeb PRN Full code. SCDs.
[2018-09-03] MEDS: Phenytoin Sodium 100 MG Capsule PO SCH (17:28)
[2018-09-04] MEDS: Sod Chloride 0.9% Inj 1,000 ML IV.CONT SCH ×2 (04:32→09:07)
--- NOTE | 2018-09-04 08:58 | P.PN ---
Subjective Interval history: Follow-up for hemorrhoidal bleed. Patient is currently resting in bed. No acute concerns. He has had bowel movements but does not see significant amount of bleed. He sees just spots. No fever or chills. Physical Exam Vital signs: Vital Signs 09/03/18 10:16 09/03/18 11:55 09/03/18 13:12 Temperature 97.8 F Pulse Rate 83 79 80 Respiratory Rate 24 20 20 Blood Pressure 87/54 L 116/71 99/80 L Pulse Oximetry 99 100 100 09/03/18 16:00 09/03/18 16:11 09/03/18 16:12 Temperature 98.7 F Pulse Rate 80 82 Respiratory Rate 18 18 Blood Pressure 102/62 Pulse Oximetry 100 95 09/03/18 20:00 09/03/18 20:58 09/03/18 20:59 Temperature 98.2 F Pulse Rate 78 82 Respiratory Rate 20 16 Blood Pressure 113/58 L Pulse Oximetry 99 99 09/04/18 00:00 09/04/18 07:22 Temperature 98.6 F Pulse Rate 91 H 88 Respiratory Rate 20 18 Blood Pressure 93/53 L Pulse Oximetry 100 99 Intake & Output 09/03/18 09/04/18 09/04/18 18:59 06:59 18:59 Intake Total 1600 / 1600 120 / 120 Balance 1600 / 1600 120 / 120 Weight 59.7 kg 59.3 kg Intake: IV 1400 / 1400 NS Inj 1,000 ML @ 100 mls/hr IV 1400 / 1400 .CONT .Q10H [facility] Rx#:[id number] Oral 200 / 200 120 / 120 Other: # Voids 2 # Bowel Movements 4 Narrative: GENERAL: Alert, NAD. SKIN: Warm and dry. HEAD: Normocephalic. EYES: No scleral icterus. No injection or drainage. NECK: Supple, trachea midline. No JVD or lymphadenopathy. CARDIOVASCULAR: Regular rate and rhythm without murmurs, gallops, or rubs. RESPIRATORY: Breath sounds equal bilaterally. No accessory muscle use. GASTROINTESTINAL: Abdomen soft, non-tender, nondistended. MUSCULOSKELETAL: No cyanosis, or edema. BACK: Nontender without obvious deformity. No CVA tenderness. Results - Labs CBC & Chem 7: 09/04/18 09:10 09/03/18 11:00 Laboratory Results - last 24 hr 09/03/18 09/03/18 09/03/18 11:00 11:00 11:00 CBC w Diff Auto diff final WBC 9.4 RBC 3.24 L Hgb 9.9 L Hct 29.6 L MCV 91.2 MCH 30.5 MCHC 33.4 RDW 15.3 Plt Count 609 H MPV 6.7 L Neut % (Auto) 83.6 H Lymph % (Auto) 6.5 L [place] % (Auto) 3.8 Eos % (Auto) 4.5 H Baso % (Auto) 1.6 Neut # (Auto) 7.8 H Lymph # (Auto) 0.6 L [place] # (Auto) 0.4 Eos # (Auto) 0.4 Baso # (Auto) 0.2 WBC Differential . Differential Comment . PT INR APTT Sodium 134 L Potassium 3.5 Chloride 95 L Carbon Dioxide 27.7 Anion Gap 11 BUN 20 H Creatinine 1.20 Estimated GFR 59 L Random Glucose 102 Calcium 8.3 L Magnesium 1.4 L Total Bilirubin 0.3 AST 92 H ALT 56 Alkaline Phosphatase 105 Total Protein 6.6 Albumin 1.9 L Stl C.difficile DNA Amp Negative St C. diff Tox Epid 027 Negative Blood Type Blood Type Recheck Antibody Screen 09/03/18 09/03/18 11:10 11:30 CBC w Diff WBC RBC Hgb Hct MCV MCH MCHC RDW Plt Count MPV Neut % (Auto) Lymph % (Auto) [place] % (Auto) Eos % (Auto) Baso % (Auto) Neut # (Auto) Lymph # (Auto) [place] # (Auto) Eos # (Auto) Baso # (Auto) WBC Differential Differential Comment PT 11.3 INR 1.1 APTT 27.1 Sodium Potassium Chloride Carbon Dioxide Anion Gap BUN Creatinine Estimated GFR Random Glucose Calcium Magnesium Total Bilirubin AST ALT Alkaline Phosphatase Total Protein Albumin Stl C.difficile DNA Amp St C. diff Tox Epid 027 Blood Type O Negative Blood Type Recheck Required Antibody Screen Negative Assessment and Plan - Plan This is a 73 year old with a history of brain aneurysm, AAA, hemorrhoids who presents to the emergency department on 09/03/2018 due to diarrhea and slow rectal bleed during bowel movement. Patient denies any chest pain, more than usual shortness of breath, fever or chills. He denies feeling lightheadedness or dizziness. Acute lower GI bleed due to hemorrhoids -Hemoglobin 9.9 on 09/03/2018. However, his hemoglobin was 11.6 on 07/05/2018. -Consulted colorectal surgery due to hemorrhoids. -Patient underwent a colonoscopy at the [facility] 6 months ago. -Hgb 8.6 today If stable, patient could likely be discharged with outpatient follow-up with colorectal surgery. -CRS Dr. Shoemaker saw patient and recommended close outpatient follow up in her office. History of brain aneurysm History of AAA -Patient is being followed at the [facility] -Continue supplemental oxygen to maintain O2 saturation around 90% -DuoNeb PRN Full code. SCDs. Discharge patient to home Condition on discharge: Improved Cardiac Diet as tolerated Ad Vane activity Rx written: Atorvastatin 40 mg nightly MiraLAX 17 g powder p.o. daily Discontinue atenolol, HCTZ and simvastatin. Follow-up with primary care physician within 1-2 weeks. Follow-up with colorectal surgeon Dr. Jessi Shoemaker on 09/08/2018 or Saturday, .
[2018-09-04] MEDS: Phenytoin Sodium 100 MG Capsule PO SCH (09:07)
[2018-09-04 09:10] VITALS: BP 97/62; PULSE 96; RESP 21; TEMP 98.2; O2SAT 97
[2018-09-04 09:42] LABS: Baso % (Auto) 0.1 % (0.0-2.0); Eos # (Auto) 0.5 th/mm3 (0.0-0.4); Eos % (Auto) 5.2 % (0.0-4.0); Hematocrit 25.4 % (39.0-51.0); Hemoglobin 8.6 gm/dL (13.0-17.0); Lymph # (Auto) 0.5 th/mm3 (1.0-4.8); Lymph % (Auto) 5.8 % (9.0-44.0); Mean Corpuscular HGB Conc 34.1 % (32.0-36.0); Mean Corpuscular Hemoglobin 30.8 pg (27.0-34.0); Mean Corpuscular Volume 90.3 fL (80.0-100.0); Mean Platelet Volume 6.7 fL (7.0-11.0); Mono # (Auto) 0.4 th/mm3 (0.0-0.9); Mono % (Auto) 3.8 % (0.0-8.0); Neut # (Auto) 7.9 th/mm3 (1.8-7.7); Neut % (Auto) 85.1 % (16.0-70.0); Platelet Count 545 th/mm3 (150-450); Red Blood Count 2.81 mil/mm3 (4.50-5.90); Red Cell Distribution Width 15.8 % (11.6-17.2); White Blood Count 9.3 th/mm3 (4.0-11.0)
== END 2018-09-04 11:03 | disposition home or self-care (01) ==
LOC: PHED 10:05 → PHEDA 10:05 → PH3 13:48
PROVIDERS: ADMIT Hospitalist; ATTEND Hospitalist